=== PATIENT | female | born 1940 | race African-American/Black ===

== ENCOUNTER 2016-10-16 18:49 | Observation (INO) ==
--- NOTE | 2016-10-16 20:34 | Emergency Department Note ---
IJojo Kasabria, am scribing for, and in the presence of, Brad Alfaro MD 20:33. Angelina Jean Baptiste Charles R, MD, personally performed the services described in this documentation, ascribed by Noe Uribe in my presence, and it is both accurate and complete . Arrival - Arrival Chief Complaint: Extremity Problem Stated Complaint: didnt list complaint ED Nursing Triage Note: C/O Swelling/pain to right leg onset "sometime last week " Pt reports having a heart cath 2 weeks ago tomorrow that was done by Dr. Li. Denies calling Dr. Li about the swelling to the leg. +swelling noted. + pedal pulses palpated equal and strong. Mode of Arrival: Ambulatory Limitations: No Limitations Source: Patient, Family (daughter ) Time Seen by Provider: 10/16/16 20:11 - History of Present Illness HPI Narrative: Pt is a 76 y/o black female presenting to the ED with c/o right leg tenderness and edema that onset one week. Pt's had ah eart cath performed by Dr. iL. The edema and tenderness was not directly following the heart cath but one week after the cath. She states her leg is sore and feels tight. Pt has a PMHx of HTN which is controlled with medications. Her follow up appointment is November [address] Li. Pt denies fever, chills, nausea, vomiting, diarrhea, abdominal pain, back pain, dysuria, chest pain, and SOB. Pt was ambulatory to the ED. Onset (ago): week(s) (2) Consistency: constant Severity: moderate Date of Last Menstrual Period: Hysterectomy Allergies/Adverse Reactions: Allergies Allergy/AdvReac Type Severity Reaction Status Date / Time Penicillins Allergy Unknown/Unable Verified 07/29/16 18:39 to obtain Home Medications: Home Medications Medication Instructions Recorded Confirmed Type Amlodipine Besylate 10 mg PO DAILY 07/29/16 10/16/16 History Cholecalciferol (Vitamin D3) 1,000 unit PO DAILY 07/29/16 10/16/16 History [Vitamin D3] Hydrocodone/Acetaminophen 1 each PO BEDTIME PRN 07/29/16 10/16/16 History [Hydrocodon-Acetaminophen 5-325] Magnesium Chloride [Mag Delay] 64 mg PO DAILY 07/29/16 10/16/16 History Meloxicam [Mobic] 7.5 - 15 mg PO DAILY PRN 07/29/16 10/16/16 History Metoprolol Tartrate Tab [Lopressor 100 mg PO TID 07/29/16 10/16/16 History Tab] Multivitamin (Centrum) [Centrum 1 tablet PO DAILY 07/29/16 10/16/16 History Tab] Potassium Chloride 20 meq PO DAILY 07/29/16 10/16/16 History Tolterodine Tartrate [Tolterodine 4 mg PO DAILY 07/29/16 10/16/16 History LA] cloNIDine HCl [Clonidine HCl] 0.2 mg PO BID 07/29/16 10/16/16 History glyBURIDE/METFORMIN 5-500 2 tablet PO DAILY W/BREAKFAST 07/29/16 10/16/16 History [Glucovance 5-500] Aspirin Chew Tab 81 mg PO DAILY tablet 08/02/16 10/16/16 Rx Insulin Glargine [Lantus] 42 unit SUBCUT BEDTIME 08/02/16 10/16/16 History Rivaroxaban [Xarelto] 20 mg PO DAILY W/SUPPER #30 tablet 08/02/16 10/16/16 Rx Furosemide Tab [Lasix Tab] 20 mg PO DAILY 10/03/16 10/16/16 History Review of System - Review of System 12 point system: reviewed and no additional remarkable complaints except as stated - Review of System Constitutional: Absent: chills, fever, weakness Eyes: Absent: vision change Head/Ears/Nose/Throat: Absent: earache, nasal drainage Respiratory: Absent: cough, wheezing Cardiovascular: Absent: chest pain, dyspnea on exertion, syncope Gastrointestinal: Absent: abdominal pain, nausea, vomiting, diarrhea Genitourinary female: Absent: dysuria Musculoskeletal: Present: leg pain (right leg edema and tenderness post heart cath ). Absent: arm pain, back pain, neck pain Skin: Absent: rash Neurological: Absent: headache, weakness, numbness, confusion, abnormal gait, vertigo Psychiatric: Absent: anxiety Endocrine: Absent: fatigue Hematological/Lymphatic: Absent: easy bleeding Allergic/Immunologic: Absent: facial swelling Medical,Surgical,& Family Hx - Medical History Cardio: History of: Hypertension No history of: CAD, Pacemaker Psychological: No history of: Anxiety Disorders, Depression Neurology: No history of: Seizures Endocrine: History of: Diabetes Mellitus (IDDM) Rheumatology: History of;: Rheumatoid Arthritis - Surgical History Reproductive Surgeries: Surgical HX of;: Hysterectomy - Family History Family History: Reports;: Family Stroke - Social History Smoking Status: Never smoker Frequency of Alcohol Use: None Type of Drug Use: None Exam Vital Signs: Vital Signs Temperature 97.4 F L 10/16/16 19:11 Pulse Rate 86 10/16/16 19:11 Respiratory Rate 18 10/16/16 19:11 Blood Pressure 122/88 10/16/16 19:11 O2 Sat by Pulse Oximetry 98 10/16/16 19:11 - General General appearance: alert, in no apparent distress - Head Head exam: Present: atraumatic, normocephalic, normal inspection - Eye Eye exam: Present: normal appearance, PERRL, EOMI - ENT ENT exam: Present: normal exam, normal oropharynx, mucous membranes moist, TM's normal bilaterally, normal external ear exam - Neck Neck exam: Present: normal inspection, full ROM, trachea midline. Absent: tenderness - Chest Chest inspection: Present: normal inspection, symmetric chest wall rise. Absent : tenderness - Respiratory Respiratory exam: Present: normal lung sounds bilaterally - Cardiovascular Cardiovascular exam: Present: regular rate, normal rhythm, normal heart sounds - Abdominal Exam Abdominal exam: Present: soft, normal bowel sounds. Absent: distention, tenderness - Extremities Exam Extremities exam: Present: full ROM, tenderness (edema to the RLE with a small 3 /3cm at the groin; good distal pulses ), normal capillary refill. Absent: pedal edema, calf tenderness - Back Exam Back exam: Present: normal inspection, full ROM. Absent: tenderness - Neurological Exam Neurological exam: Present: alert, oriented X3, CN II-XII intact, normal gait, reflexes normal - Psychiatric Psychiatric exam: Present: normal affect, normal mood - Skin Skin exam: Present: warm, dry, intact, normal color. Absent: rash, diaphoresis Course - Consultations Consultation #1: Dr. Hillman will admit patient for observation to watch hematoma and right groin Time: 22:28 Results - Labs CBC & BMP: 10/16/16 21:30 Disposition Clinical Impression: possible hematoma right groin post cath Case discussed with: patient, patient's family Disposition: Still a Patient Condition: Stable Time of Disposition: 22:29
[2016-10-16 21:37] LABS: Basophils % 0.5 % (0.0-0.8); Eosinophils # 0.3 10*3/uL (0.0-0.87); Eosinophils % 3.6 % (0.00-10.9); Hematocrit 35.4 VOL% (35.7-47.0); Hemoglobin 11.2 GM/DL (12.0-16.0); Immature Granulocytes % 0.5 %; Immature Granulocytes Absolute 0.04 #; Lymphocytes # 2.3 10*3/uL (1.4-4.0); Lymphocytes % 27.4 % (21.3-54.2); Mean Corpuscular HGB Conc 31.6 GM/DL (32-36); Mean Corpuscular Hemoglobin 26 PG (27-34); Mean Corpuscular Volume 81.8 FL (87-102); Mean Platelet Volume 8.8 FL (9.6-12.0); Monocytes # 0.8 10*3/uL (0.11-0.8); Monocytes % 8.8 % (1.7-12.7); Neutrophils # 5.1 10*3/uL (1.4-7.4); Neutrophils % 59.2 % (38.7-73.9); Platelet Count 328 T/CUMM (130-400); Red Blood Count 4.33 MC/CUMM (3.8-5.5); Red Cell Distribution Width 14.3 % (9.3-17.3); White Blood Count 8.5 T/CUMM (4-12)
--- NOTE | 2016-10-16 21:42 | Ultrasound Report ---
Exam: Right lower extremity venous Doppler/duplex ultrasound Comparison: 07/31/2016 Clinical history: Recent heart catheterization with progressive pain and swelling in left lower extremity Technique: Duplex scan of the right lower extremity veins using th B- mode/grayscale imaging and Dopplers spectral analysis and color flow. Findings: There is normal compression and augmentation of the right superficial femoral and popliteal veins. The proximal right greater saphenous veins appear to be patent. Ill-defined 22 mm finding at the level of the right common femoral vein which extends around the adjacent saphenous vein. There is abnormal compression but there is still flow within the common femoral vein. No definite pseudoaneurysm identified. Normal compression and augmentation of the right superficial femoral and popliteal veins with normal course, caliber, and normal color-flow study and spectral analysis. Impression: Findings consistent with hematoma in the area of the right common femoral vein and saphenous vein in patient with recent heart catheterization. No definite pseudoaneurysm is identified. However there is abnormal compression of the vein which can be seen with nonoccluding deep venous thrombosis in addition to the hematoma. Short-term follow-up ultrasound recommended. Findings were discussed with Dr. Alfaro at 9:20 PM on 10/16/2016. Critical test results Ultrasound images were captured and stored. PROCEDURE INTERPRETED AT [facility] [place] DEPARTMENT OF RADIOLOGY Final Report Signed by: Dr. Siobhan Calvin
[2016-10-16 21:48] LABS: INR 1.4; PT Patient Result 14.6 SECS
[2016-10-16 22:51] LABS: Alanine Aminotransferase 22 U/L (13-56); Albumin 2.9 G/DL (3.4-5.0); Alkaline Phosphatase 93 U/L (45-117); Aspartate Amino Transferase 19 U/L (0-37); Bilirubin,Total < 0.39 MG/DL (0.2-1.0); Blood Urea Nitrogen 14 MG/DL (7-18); Calcium 8.9 MG/DL (8.5-10.1); Glucose 127 MG/DL (74-106); Osmolality,Calculated 294.4 MOS/KG (273-304); Potassium 3.9 MMOL/L (3.5-5.1); Sodium 147 MMOL/L (136-145); Total Protein 6.1 G/DL (6.4-8.3)
[2016-10-17] MEDS ORDERED: MAGNESIUM SULF RIDER 4 GM in PREMIX 1 EACH IV PRN (00:28)
[2016-10-17] MEDS ORDERED: ONDANSETRON 4 MG/2 ML VIAL IV PRN (00:28)
[2016-10-17] MEDS ORDERED: GLUCAGON 1 MG VIAL IM PRN (00:28)
[2016-10-17] MEDS ORDERED: MORPHINE 2 MG/1 ML SYRINGE IV PRN (00:28)
[2016-10-17] MEDS ORDERED: DEXTROSE 50% 25 GM/50 ML VIAL IV PRN (00:28)
[2016-10-17] MEDS ORDERED: MAGNESIUM SULF RIDER 2 GM in PREMIX 1 EACH IV PRN (00:28)
[2016-10-17] MEDS: SODIUM CHLORIDE 0.9% 1,000 ML IV SCH (01:22)
[2016-10-17 05:49] LABS: Albumin 2.7 G/DL (3.4-5.0); Bilirubin,Total 0.4 MG/DL (0.2-1.0); Calcium 8.6 MG/DL (8.5-10.1); Magnesium 2.1 MG/DL (1.8-2.4); Osmolality,Calculated 291.3 MOS/KG (273-304); Potassium 3.5 MMOL/L (3.5-5.1); Risk Ratio 2.62; Total Protein 5.8 G/DL (6.4-8.3); VLDL CHOLESTEROL 11.2 MG/DL
[2016-10-17 07:06] LABS: Basophils % 0.6 % (0.0-0.8); Eosinophils # 0.3 10*3/uL (0.0-0.87); Eosinophils % 4.4 % (0.00-10.9); Hematocrit 33.1 VOL% (35.7-47.0); Hemoglobin 10.4 GM/DL (12.0-16.0); Immature Granulocytes % 0.4 %; Immature Granulocytes Absolute 0.03 #; Lymphocytes # 2.3 10*3/uL (1.4-4.0); Lymphocytes % 32.8 % (21.3-54.2); Mean Corpuscular HGB Conc 31.4 GM/DL (32-36); Mean Corpuscular Hemoglobin 26 PG (27-34); Mean Corpuscular Volume 82.5 FL (87-102); Mean Platelet Volume 9.4 FL (9.6-12.0); Monocytes # 0.7 10*3/uL (0.11-0.8); Monocytes % 9.6 % (1.7-12.7); Neutrophils # 3.6 10*3/uL (1.4-7.4); Neutrophils % 52.2 % (38.7-73.9); Platelet Count 325 T/CUMM (130-400); Red Blood Count 4.01 MC/CUMM (3.8-5.5); Red Cell Distribution Width 14.5 % (9.3-17.3); White Blood Count 6.9 T/CUMM (4-12)
[2016-10-17] MEDS: INSULIN REGULAR 100 UNIT/ML SUBCUT SCH ×4 (08:18→20:59)
[2016-10-17] MEDS ORDERED: PANTOPRAZOLE 40 MG TABLET PO SCH (09:30)
[2016-10-17] MEDS: ASPIRIN CHEW 81 MG TABLET PO SCH (10:17)
[2016-10-17] MEDS: amLODIPine 10 MG TABLET PO SCH (10:17)
[2016-10-17] MEDS: CHOLECALCIFEROL 1,000 UNIT TABLET PO SCH (10:17)
[2016-10-17] MEDS: MAGNESIUM CHLORIDE 64 MG TABLET PO SCH (10:17)
[2016-10-17] MEDS: FUROSEMIDE 20 MG TABLET PO SCH (10:18)
[2016-10-17] MEDS: PANTOPRAZOLE 40 MG TABLET PO SCH (10:18)
--- NOTE | 2016-10-17 11:19 | CT Report ---
CT chest PE study Indication: Shortness of breath Comparison: Chest CT dated July 29, 2016 Technique: Multiple axial tomographic images of the chest were obtained after the administration of 80 cc Omnipaque 350 intravenous contrast. PE protocol followed. Coronal and sagittal maximum intensity projection images provided. Findings: No segmental or larger pulmonary embolism demonstrated. Enlargement of the pulmonary trunk consistent with elevated pulmonary arterial pressures. Continued cardiomegaly. There is reflux of contrast into the IVC consistent with right heart failure. Coronary artery at carotid calcification noted. Mild atherosclerotic calcification within the great vessels. No focal consolidation, pleural effusion, or pneumothorax. Mild dependent changes of the lungs present. Visualized upper abdomen demonstrates no acute abnormality. Osseous and surrounding tissue structures appear grossly unchanged. IMPRESSION: No segmental or larger pulmonary embolism demonstrated. Enlargement of the pulmonary trunk suggestive of pulmonary arterial hypertension. Continued cardiomegaly with suggestion of right heart failure. No forest pulmonary edema. PROCEDURE INTERPRETED AT [facility] DEPARTMENT OF RADIOLOGY Final Report Signed by: Dr Jorge Mabry
--- NOTE | 2016-10-17 13:00 | Cardiology History & Physical ---
Jovani Jean Baptiste Rachel, RN, am scribing for, and in the presence of, Marcelol Li MD 12:54. Assessment and Plan (1) Persistent atrial fibrillation Status: Acute Assessment and plan: This is clinically stable. Atrial fibrillation with controlled ventricular response. Home medications restarted at this time, Xarelto and Beta silvia. Will adjust medications as needed. Current Visit: Yes (2) Diabetes Status: Chronic Assessment and plan: Clinically stable. Metformin held today CT chest. Will restart in 48 hours. Sliding scale insulin ordered. Current Visit: No (3) Essential hypertension Status: Chronic Assessment and plan: Restarted patient's home medications. Will adjust as needed. Current Visit: No (4) Obesity Status: Chronic Assessment and plan: Counseled patient on the importance of loosing weight. Current Visit: No (5) Cardiomyopathy Status: Acute Assessment and plan: Really doesn't have a cardiomyopathy. Ejection fraction at least 50% of not better. Current Visit: Yes (6) [place] (dyspnea on exertion) Status: Acute Assessment and plan: CT chest ordered and PE were ruled out. This patient had chronic dyspnea. She has at least moderate to severe poorly hypertension. We will last Dr. Schulte to see the patient. Current Visit: Yes (7) Hematoma Status: Acute Assessment and plan: Right lower extremity doppler findings consistent with hematoma in the area of the right common femoral vein and saphenous vein. No definite psueudoaneurysm is identified. However, there is abnormal compression of the vein which can be seen with nonoccluding DVT in addition to the hematoma. Because the question of nonoccluding DVT may go ahead and switch her from Xarelto to Eliquis. Current Visit: Yes (8) Leg edema, right Status: Acute Assessment and plan: This is probably secondary to hematoma compression on the vein as well as maybe some DVT in the vein. She's done better with the furosemide Current Visit: Yes History of Present Illness Chief complaint: Right leg tenderness and swelling History of present illness: Ms. Albert is a 76 year old female patient, routinely followed by Dr. Li. She presented to [place] last night with complaints of right leg tenderness and swelling. She was admitted to cardiology's service for further evaluation. She has a past medical history of persistent atrial fib (diagnosed in 07/2016; takes xarelto for this), hypertension, diabetes and cardiomyopathy (EF of 55% noted on echo 07/2016 with mild to moderate LVH). Past surgical history includes hysterectomy. No significant family history of cardiac disease is reported. She was last admitted to this facility on 10/03/16 for chest pain and worsening dyspnea on exertion. She underwent cardiac cath at that time per Dr. Li. She was found have widely patent coronary arteries with moderately high right-sided pressures at that time. Post procedure she did well and was without complication. She was in her usual state of health until one week ago when she began noticing moderate right leg tenderness and swelling. She tells me that the swelling did not develop directly post cath. It became evident approximately one week after discharged home. After being discharged home she tells me she has been quite sedentary due to fatigue and dyspnea on exertion. Pain is worse in her upper thigh and aggravated with walking. She is unable to identify any alleviating factors. She denies associated chest pain or discomfort. She does however report dyspnea on extertion and fatigue, but states this has not worsened since she was discharged home. She tells me she has an appointment with Dr. Schulte on the of this month for full work up of her shortness of breath and pulmonary hypertension. She tells she's had sleep studies to 3 weeks ago and these were unremarkable. She denies fever, chills, abdominal pain, orthopnea, PND, palpitations, lightheadedness and chest pain. She was seen and examined on telemetry. She is currently in atrial fibrillation per tele monitor with a controlled ventricular response. She takes Xarelto for this. Cath site to right groin is tender to palpitation. No bruit auscultated. Edema noted, Bilateral DP and PT pulses 2+. Normal capillary refill noted. Venous doppler of right lower extremity revealed findings consistent with hematoma in the area of the right common femoral vein and saphenous vein. No definite psueudoaneurysm is identified. However, there is abnormal compression of the vein which can be seen with nonoccluding DVT in addition to the hematoma. Have reviewed this study and indeed I do question some intermittent venous thrombus. Swelling or right leg is much improved. Of note, she denies any prior history of gi bleeds, blood in her stool, anemia, frequent falls and stroke. No contraindications of anticoagulation noted. Active Medications Active Medications Hydrocodone Bitart/Acetaminophen (Penelope 5-325) 1 tablet PO BEDTIME PRN PRN Reason: Pain Amlodipine Besylate (Norvasc) 10 mg PO DAILY [facility] Aspirin () 81 mg PO DAILY [facility] Cholecalciferol (Vitamin D3) 1,000 unit PO DAILY [facility] Clonidine HCl (Catapres Tab) 0.2 mg PO BID [facility] Dextrose/Water (D50) 25 gm IV PRN PRN PRN Reason: Hypoglycemia with IV access Last Admin: 10/17/16 06:18 Dose: 25 gm Furosemide (Lasix Tab) 20 mg PO DAILY [facility] Glucagon () 1 mg IM PRN PRN PRN Reason: Hypoglycemia w/o IV access Magnesium Sulfate 2 gm/ Premix 50 mls @ 25 mls/hr IV .PER PROTOCOL PRN; Protocol PRN Reason: Per Protocol Magnesium Sulfate 4 gm/ Premix 100 mls @ 25 mls/hr IV .PER PROTOCOL PRN; Protocol PRN Reason: Per Protocol Sodium Chloride (Ns) 1,000 mls @ 20 mls/hr IV .Q24H [facility] Last Admin: 10/17/16 01:22 Dose: 20 mls/hr Insulin Glargine (Lantus) 42 unit SUBCUT BEDTIME [facility] Insulin Human Regular (Humulin R) 0 unit SUBCUT ACHS [facility] PRN Reason: Protocol Last Admin: 10/17/16 08:18 Dose: Not Given Iron/Multivitamins/Folic Acid (Centrum Tab) 1 tablet PO DAILY [facility] Magnesium Chloride (Slow Mag) 64 mg PO DAILY [facility] Metoprolol Tartrate (Lopressor Tab) 100 mg PO TID [facility] Morphine Sulfate () 2 mg IV Q4H PRN PRN Reason: Pain Severe (8-10) Ondansetron HCl (Zofran Inj) 4 mg IV Q4H PRN PRN Reason: Nausea Pantoprazole Sodium (Protonix Tab) 40 mg PO DAILY [facility] Rivaroxaban (Xarelto) 20 mg PO DAILY W/SUPPER [facility] Tolterodine Tartrate (Detrol La) 4 mg PO DAILY [facility] Home Medications Medication Instructions Recorded Confirmed Type Amlodipine Besylate 10 mg PO DAILY 07/29/16 10/16/16 History Cholecalciferol (Vitamin D3) 1,000 unit PO DAILY 07/29/16 10/16/16 History [Vitamin D3] Hydrocodone/Acetaminophen 1 each PO BEDTIME PRN 07/29/16 10/16/16 History [Hydrocodon-Acetaminophen 5-325] Magnesium Chloride [Mag Delay] 64 mg PO DAILY 07/29/16 10/16/16 History Meloxicam [Mobic] 1 - 2 tablet PO DAILY PRN 07/29/16 10/17/16 History Metoprolol Tartrate Tab [Lopressor 100 mg PO TID 07/29/16 10/16/16 History Tab] Multivitamin (Centrum) [Centrum 1 tablet PO DAILY 07/29/16 10/16/16 History Tab] Potassium Chloride 20 meq PO DAILY 07/29/16 10/16/16 History Tolterodine Tartrate [Tolterodine 4 mg PO DAILY 07/29/16 10/16/16 History LA] cloNIDine HCl [Clonidine HCl] 0.2 mg PO BID 07/29/16 10/16/16 History glyBURIDE/METFORMIN 5-500 2 tablet PO DAILY W/BREAKFAST 07/29/16 10/16/16 History [Glucovance 5-500] Aspirin Chew Tab 81 mg PO DAILY tablet 08/02/16 10/16/16 Rx Insulin Glargine [Lantus] 42 unit SUBCUT BEDTIME 08/02/16 10/16/16 History Rivaroxaban [Xarelto] 20 mg PO DAILY W/SUPPER #30 tablet 08/02/16 10/16/16 Rx Furosemide Tab [Lasix Tab] 20 mg PO DAILY 10/03/16 10/16/16 History Allergies Allergy/AdvReac Type Severity Reaction Status Date / Time Penicillins Allergy Unknown/Unable Verified 07/29/16 18:39 to obtain - Constitutional Constitutional: Present: fatigue. Absent: chills, excessive sweating, fever(s) , frequent falls, headache(s), malaise, night sweats, weakness - Cardiovascular Cardiovascular: Present: dyspnea on exertion, edema (right lower extremity). Absent: chest pain at rest, chest pain with activity, claudication, diaphoresis , radiating jaw, neck or arm pain, lightheadedness, orthopnea, palpitations, PND - Respiratory Respiratory: Present: dyspnea on exertion. Absent: cough, wheezing, snoring, pain on inspiration - Gastrointestinal Gastrointestinal: Absent: abdominal pain, change in bowel habits, coffee ground emesis, constipation, cramping, diarrhea, heartburn, hematemesis, hematochezia, melena, nausea, vomiting - Musculoskeletal Musculoskeletal: Absent: back pain, limited range of motion, myalgias - Neurological Neurological: Absent: dizziness, frequent falls, headache(s), memory loss, syncope - Hematologic/Lymphatic Hematologic/Lymphatic: Absent: easy bleeding, easy bruising, lymphadenopathy Medical,Surgical,& Family Hx - Medical History Cardio: History of: Cardiac Dysrhythmia (atrial fib, patient takes xarelto ), Hypertension, Cardiovascular Problems (EF 55%, 07/2016) No history of: CAD, Pacemaker Psychological: No history of: Anxiety Disorders, Depression Neurology: No history of: Cerebrovascular Accident, Seizures, TIA Endocrine: History of: Diabetes Mellitus (IDDM) Rheumatology: History of;: Rheumatoid Arthritis Respiratory: History of: Obstructive Sleep Apnea Gastrointestinal: No history of: Gastrointestinal Bleed, Hematochezia, GI Problems Musculoskeletal: No history of: Amputation Hematology: No history of: Anemia, Bleeding Problems, Blood Disorders - Surgical History Cardiac Surgeries: Sugical HX of: Cardiac Catheterization (2 WEEKS AGO) Thoracic Surgeries: Patient denies;: Organ Transplant, Lobectomy Neurologic Surgeries: Patient denies: Neurologic Surgery Abdominal Surgeries: Patient denies: Abdominal Surgery Reproductive Surgeries: Surgical HX of;: Gynecologic Surgery, Hysterectomy Patient denies;: Genitourinary Surgery - Family History Family History: Reports;: Family Stroke - Social History Smoking Status: Never smoker Frequency of Alcohol Use: None Type of Drug Use: None Cardiology Physical Exam - Constitutional Vitals: Vital Signs Temp Pulse Resp BP Pulse Ox 97.3 F L 76 18 150/87 100 10/17/16 04:00 10/17/16 04:00 10/17/16 04:00 10/17/16 04:00 10/17/16 04:00 Intake and Output 10/16/16 10/17/16 10/17/16 22:59 06:59 14:59 Output Total 700 / 700 Balance -700 / -700 Output: Urine 700 / 700 Other: Voiding Method Toilet Weight 270 lb General appearance: no acute distress, morbidly obese - Head Head exam: Present: normal inspection, normocephalic, atraumatic - Eye Pupils: Present: CHARLY. Absent: constricted, dilated, fixed, irregular, unequal - Neck Neck exam: Present: normal inspection. Absent: lymphadenopathy, meningismus, tenderness, thyromegaly - Respiratory Respiratory exam: Present: clear to auscultation bilaterally. Absent: accessory muscle use, chest wall tenderness, rales, rhonchi, stridor, wheezes - Cardiovascular Cardiovascular exam: Present: irregular rhythm (atrial fib ). Absent: carotid bruit, diastolic murmur, gallop, rubs, systolic murmur, tachycardia - GI/Abdominal GI/Abdominal exam: Present: normal bowel sounds, soft. Absent: distended, firm , mass, tenderness - Extremities Exam Extremities exam: Present: normal capillary refill, calf tenderness, edema ( Right extremity ), other (DP and PT pulses 2+ bilaterally. ) - Expanded Right Lower Upper Leg exam: Present: swelling (right leg), tenderness (at the right groin at cath site). Absent: ecchymosis, erythema Lower leg exam: Present: swelling (right lower leg), tenderness (tenderness is minimal). Absent: ecchymosis, erythema Foot/Toe exam: Present: normal inspection, full ROM - Back Exam Back exam: Present: normal inspection - Neurological Exam Neurological exam: Present: alert, oriented X3 - Psychiatric Psychiatric exam: Present: normal affect, normal mood. Absent: agitated, anxious, depressed - Skin Skin exam: Present: normal color, warm. Absent: cyanosis, diaphoretic, erythema , mottled, pallor, rash, urticaria Result/EKG - Labs CBC & BMP: 10/17/16 03:57 10/17/16 03:57 Lab Results: I have reviewed the past 24 hour labs Labs: Laboratory Results - last 24 hr 10/17/16 10/17/16 10/17/16 03:57 03:57 03:57 WBC 6.9 RBC 4.01 Hgb 10.4 L Hct 33.1 L MCV 82.5 L MCH 26 L MCHC 31.4 L RDW 14.5 Plt Count 325 MPV 9.4 L Neut % (Auto) 52.2 Lymph % (Auto) 32.8 [place] % (Auto) 9.6 Eos % (Auto) 4.4 Baso % (Auto) 0.6 Neut # (Auto) 3.6 Lymph # (Auto) 2.3 [place] # (Auto) 0.7 Eos # (Auto) 0.3 Baso # (Auto) 0.0 Immature Gran % 0.4 Nucleated RBC % 0.0 Immature Gran # 0.03 Nucleated RBCs # 0.00 Sodium 148 H Potassium 3.5 Chloride 110 H Carbon Dioxide 28 Anion Gap 13.5 BUN 12 Creatinine 0.70 GFR Calculation 133 BUN/Creatinine Ratio 17.00 Glucose 67 L POC Glucose Calculated Osmolality 291.3 Calcium 8.6 Magnesium 2.1 Total Bilirubin 0.40 AST 13 ALT 20 Alkaline Phosphatase 85 B-Natriuretic Peptide 359 H Total Protein 5.8 L Albumin 2.7 L Globulin 3.1 Albumin/Globulin Ratio 0.8 L Triglycerides 56 Cholesterol 123 LDL Cholesterol 73.0 VLDL Cholesterol 11.2 HDL Cholesterol 47 Heart Disease Risk Ratio 2.62 10/17/16 10/17/16 06:05 07:54 WBC RBC Hgb Hct MCV MCH MCHC RDW Plt Count MPV Neut % (Auto) Lymph % (Auto) [place] % (Auto) Eos % (Auto) Baso % (Auto) Neut # (Auto) Lymph # (Auto) [place] # (Auto) Eos # (Auto) Baso # (Auto) Immature Gran % Nucleated RBC % Immature Gran # Nucleated RBCs # Sodium Potassium Chloride Carbon Dioxide Anion Gap BUN Creatinine GFR Calculation BUN/Creatinine Ratio Glucose POC Glucose 61 L 100 Calculated Osmolality Calcium Magnesium Total Bilirubin AST ALT Alkaline Phosphatase B-Natriuretic Peptide Total Protein Albumin Globulin Albumin/Globulin Ratio Triglycerides Cholesterol LDL Cholesterol VLDL Cholesterol HDL Cholesterol Heart Disease Risk Ratio - EKG EKG results: interpreted by me EKG shows: atrial fibrillation Guillermo Jean Baptiste John Timothy, MD, personally performed the services described in this documentation, ascribed by Lyubov Hahn RN in my presence, and it is both accurate and complete .
[2016-10-17] MEDS: METOPROLOL TARTRATE 100 MG TABLET PO SCH ×2 (15:52→20:59)
[2016-10-17] MEDS ORDERED: RIVAROXABAN 20 MG TABLET PO SCH (17:00)
[2016-10-17] MEDS: INSULIN GLARGINE 100 UNIT/ML SUBCUT SCH (20:59)
[2016-10-17] MEDS: APIXABAN 5 MG TABLET PO SCH (20:59)
[2016-10-18] MEDS: SODIUM CHLORIDE 0.9% 1,000 ML IV SCH (01:38)
[2016-10-18 03:18] LABS: Basophils % 0.4 % (0.0-0.8); Eosinophils # 0.3 10*3/uL (0.0-0.87); Eosinophils % 3.6 % (0.00-10.9); Hematocrit 32.7 VOL% (35.7-47.0); Hemoglobin 10.1 GM/DL (12.0-16.0); Immature Granulocytes % 0.4 %; Immature Granulocytes Absolute 0.03 #; Lymphocytes # 1.9 10*3/uL (1.4-4.0); Lymphocytes % 27.3 % (21.3-54.2); Mean Corpuscular HGB Conc 30.9 GM/DL (32-36); Mean Corpuscular Hemoglobin 25 PG (27-34); Mean Corpuscular Volume 81.5 FL (87-102); Mean Platelet Volume 9.4 FL (9.6-12.0); Monocytes # 0.7 10*3/uL (0.11-0.8); Monocytes % 9.4 % (1.7-12.7); Neutrophils # 4.1 10*3/uL (1.4-7.4); Neutrophils % 58.9 % (38.7-73.9); Platelet Count 308 T/CUMM (130-400); Red Blood Count 4.01 MC/CUMM (3.8-5.5); Red Cell Distribution Width 14.5 % (9.3-17.3)
[2016-10-18 04:05] LABS: Calcium 8.6 MG/DL (8.5-10.1); Magnesium 2.1 MG/DL (1.8-2.4); Osmolality,Calculated 295.6 MOS/KG (273-304); Potassium 3.5 MMOL/L (3.5-5.1)
[2016-10-18] MEDS: INSULIN REGULAR 100 UNIT/ML SUBCUT SCH ×4 (08:38→22:20)
[2016-10-18] MEDS: TOLTERODINE LA 4 MG CAPSULE PO SCH (10:53)
[2016-10-18] MEDS: CHOLECALCIFEROL 1,000 UNIT TABLET PO SCH (10:53)
[2016-10-18] MEDS: FUROSEMIDE 20 MG TABLET PO SCH (10:53)
[2016-10-18] MEDS: MULTIVITAMIN (CENTRUM) TABLET PO SCH (10:53)
[2016-10-18] MEDS: METOPROLOL TARTRATE 100 MG TABLET PO SCH ×3 (10:53→22:11)
[2016-10-18] MEDS: amLODIPine 10 MG TABLET PO SCH (10:53)
[2016-10-18] MEDS: MAGNESIUM CHLORIDE 64 MG TABLET PO SCH (10:53)
[2016-10-18] MEDS: PANTOPRAZOLE 40 MG TABLET PO SCH (10:54)
[2016-10-18] MEDS: ASPIRIN CHEW 81 MG TABLET PO SCH (10:54)
[2016-10-18] MEDS: APIXABAN 5 MG TABLET PO SCH (10:59)
[2016-10-18] MEDS ORDERED: WARFARIN 5 MG TABLET PO ONE (16:15)
--- NOTE | 2016-10-18 16:32 | Cardiology Progress Note ---
Jovani Jean Baptiste Rachel, RN, am scribing for, and in the presence of, Marcello Li MD 16:10. Assessment and Plan (1) Persistent atrial fibrillation Status: Acute Assessment and plan: This is clinically stable. Atrial fibrillation with controlled ventricular response. Home medications have been restarted. Will adjust medications as needed. Current Visit: Yes (2) Diabetes Status: Chronic Assessment and plan: Clinically stable. Metformin remains on hold from CT chest yesterday. Will restart [address] Sliding scale insulin was added yesterday to help control blood glucose while Metformin is on hold. Current Visit: No (3) Essential hypertension Status: Chronic Assessment and plan: Continue current plan of care. We'll monitor her pressures. May need as something to her regimen such as nifedipine or amlodipine especially with her increased pulmonary pressures. Unfortunately this may increase edema. Current Visit: No (4) Obesity Status: Chronic Assessment and plan: Counseled patient on the importance of loosing weight. It is unlikely she's going to she's not that motivated. Current Visit: No (5) Cardiomyopathy Status: Acute Assessment and plan: This is clinically stable. Last echo was done July 2016 and revealed EF of 55% with mild to moderate LVH. Continue current plan of care. Current Visit: Yes (6) [place] (dyspnea on exertion) Status: Acute Assessment and plan: This is chronic in been followed by Dr. Schulte previously. Because of been 10 units dyspnea on this admission and no PE on CT we'll go ahead and ask Dr. Schulte to see the patient. Current Visit: Yes (7) Hematoma Status: Acute Assessment and plan: Right lower extremity doppler findings consistent with hematoma in the area of the right common femoral vein and saphenous vein. No definite psueudoaneurysm is identified. However, there is abnormal compression of the vein which can be seen with nonoccluding DVT in addition to the hematoma. Because the question of nonoccluding DVT patient was switched from Xarelto to Eliquis. Continue current plan of care. Current Visit: Yes (8) Leg edema, right Status: Acute Assessment and plan: This is probably secondary to hematoma compression on the vein as well as maybe some DVT in the vein. She's done better with the furosemide Current Visit: Yes (9) Deep vein thrombosis (DVT) of femoral vein of left lower extremity Status: Acute Assessment and plan: We'll switch her to worsen to treat this evening though is nonocclusive. She's had swelling in the leg. No evidence of PTE. Continue anticoagulant. We'll switch her warfarin since she states she came for the other medications i.e. Eliquis/Xarelto. Current Visit: Yes Cardiology - PN: Subj Interval history: Ms. Albert is a 76 year old female patient, routinely followed by Dr. Li. She presented to [place] [facility] with complaints of right leg tenderness and swelling. She was admitted to cardiology's service for further evaluation. Right lower extremity doppler findings were consistent with hematoma in the area of the right common femoral vein and saphenous vein. No definite psueudoaneurysm is identified. However, there is abnormal compression of the vein which can be seen with nonoccluding DVT in addition to the hematoma. PE study was ordered and PE was ruled out yesterday. She remains in atrial fibrillation today with a controlled ventricular response. Her heart rate today has ranged from 80's - 90's. She is clinically stable today and without any new complaints. She continues to complain of shortness of breath and yet this is no worse. This is chronic problem for her. She is scheduled for a full workup of this by Dr. Schulte on October 30. We will last Dr. Schulte to go ahead and see her while she is here. Her right lower extremity edema seems to be slightly better. She is currently on Eliquis for anticoagulation. She is tolerating this well. Labs reviewed and are unremarkable. She really complains about the cost of her medications and is unlikely without some's assistance that she is going to not take her Eiquis or Xarelto. Undergo ahead and start her on warfarin in light that she probably is not going to continue to pay for these drugs. As noted we will try to get her on some type of assistance program for Eliquis. I think she generally go home after we get her INR out now. Active Medications Hydrocodone Bitart/Acetaminophen ([place] 5-325) 1 tablet PO BEDTIME PRN PRN Reason: Pain Amlodipine Besylate (Norvasc) 10 mg PO DAILY [facility] Last Admin: 10/18/16 10:53 Dose: 10 mg Apixaban (Eliquis) 5 mg PO BID [facility] Last Admin: 10/18/16 10:59 Dose: 5 mg Aspirin () 81 mg PO DAILY [facility] Last Admin: 10/18/16 10:54 Dose: 81 mg Cholecalciferol (Vitamin D3) 1,000 unit PO DAILY [facility] Last Admin: 10/18/16 10:53 Dose: 1,000 unit Clonidine HCl (Catapres Tab) 0.2 mg PO BID [facility] Last Admin: 10/18/16 10:53 Dose: 0.2 mg Dextrose/Water (D50) 25 gm IV PRN PRN PRN Reason: Hypoglycemia with IV access Last Admin: 10/17/16 06:18 Dose: 25 gm Furosemide (Lasix Tab) 20 mg PO DAILY [facility] Last Admin: 10/18/16 10:53 Dose: 20 mg Glucagon () 1 mg IM PRN PRN PRN Reason: Hypoglycemia w/o IV access Magnesium Sulfate 2 gm/ Premix 50 mls @ 25 mls/hr IV .PER PROTOCOL PRN; Protocol PRN Reason: Per Protocol Magnesium Sulfate 4 gm/ Premix 100 mls @ 25 mls/hr IV .PER PROTOCOL PRN; Protocol PRN Reason: Per Protocol Sodium Chloride (Ns) 1,000 mls @ 20 mls/hr IV .Q24H [facility] Last Admin: 10/18/16 01:38 Dose: Not Given Insulin Glargine (Lantus) 42 unit SUBCUT BEDTIME [facility] Last Admin: 10/17/16 20:59 Dose: 42 unit Insulin Human Regular (Humulin R) 0 unit SUBCUT ACHS [facility] PRN Reason: Protocol Last Admin: 10/18/16 12:55 Dose: 6 unit Iron/Multivitamins/Folic Acid (Centrum Tab) 1 tablet PO DAILY [facility] Last Admin: 10/18/16 10:53 Dose: 1 tablet Magnesium Chloride (Slow Mag) 64 mg PO DAILY [facility] Last Admin: 10/18/16 10:53 Dose: 64 mg Metoprolol Tartrate (Lopressor Tab) 100 mg PO TID [facility] Last Admin: 10/18/16 10:53 Dose: 100 mg Morphine Sulfate () 2 mg IV Q4H PRN PRN Reason: Pain Severe (8-10) Ondansetron HCl (Zofran Inj) 4 mg IV Q4H PRN PRN Reason: Nausea Pantoprazole Sodium (Protonix Tab) 40 mg PO DAILY [facility] Last Admin: 10/18/16 10:54 Dose: 40 mg Tolterodine Tartrate (Detrol La) 4 mg PO DAILY [facility] Last Admin: 10/18/16 10:53 Dose: 4 mg Exam (Progress Note) - Constitutional Vitals: Period Temp Pulse Resp BP Sys/Rodriguez Pulse Ox Last 24 Hr 96.2 F-98.5 F 62-90 16-20 118-155/71-87 100-100 General appearance: no acute distress, morbidly obese - Head Head exam: Present: normal inspection, normocephalic, atraumatic - Eye Pupils: Present: CHARLY. Absent: fixed, irregular, unequal - Respiratory Respiratory exam: Present: clear to auscultation bilaterally. Absent: accessory muscle use, chest wall tenderness, rales, rhonchi, stridor, wheezes - Cardiovascular Cardiovascular exam: Present: irregular rhythm (Atrial fibrillation). Absent: carotid bruit, gallop, rubs, systolic murmur, tachycardia - GI/Abdominal GI/Abdominal exam: Present: normal bowel sounds, soft. Absent: distended, firm , mass, tenderness - Extremities Exam Extremities exam: Present: normal inspection, normal capillary refill, calf tenderness, edema, other (Bilateral lower extremity pulses 2+.) - Neurological Exam Neurological exam: Present: alert, oriented X3 - Psychiatric Psychiatric exam: Present: normal affect, normal mood. Absent: agitated, anxious, depressed - Skin Skin exam: Present: normal color, warm, dry Result/EKG - Labs CBC & BMP: 10/18/16 01:45 10/18/16 01:45 Lab Results: I have reviewed the past 24 hour labs Labs: Laboratory Results - last 24 hr 10/17/16 10/17/16 10/18/16 17:07 20:14 01:45 WBC 7.0 RBC 4.01 Hgb 10.1 L Hct 32.7 L MCV 81.5 L MCH 25 L MCHC 30.9 L RDW 14.5 Plt Count 308 MPV 9.4 L Neut % (Auto) 58.9 Lymph % (Auto) 27.3 Tucker % (Auto) 9.4 Eos % (Auto) 3.6 Baso % (Auto) 0.4 Neut # (Auto) 4.1 Lymph # (Auto) 1.9 Tucker # (Auto) 0.7 Eos # (Auto) 0.3 Baso # (Auto) 0.0 Immature Gran % 0.4 Nucleated RBC % 0.0 Immature Gran # 0.03 Nucleated RBCs # 0.00 Sodium Potassium Chloride Carbon Dioxide Anion Gap BUN Creatinine GFR Calculation BUN/Creatinine Ratio Glucose POC Glucose 235 H 260 H Calculated Osmolality Calcium Magnesium 10/18/16 10/18/16 10/18/16 01:45 07:10 11:40 WBC RBC Hgb Hct MCV MCH MCHC RDW Plt Count MPV Neut % (Auto) Lymph % (Auto) Tucker % (Auto) Eos % (Auto) Baso % (Auto) Neut # (Auto) Lymph # (Auto) Tucker # (Auto) Eos # (Auto) Baso # (Auto) Immature Gran % Nucleated RBC % Immature Gran # Nucleated RBCs # Sodium 146 H Potassium 3.5 Chloride 108 H Carbon Dioxide 29 Anion Gap 12.5 BUN 12 Creatinine 0.80 GFR Calculation 113 BUN/Creatinine Ratio 15.00 Glucose 211 H POC Glucose 107 H 207 H Calculated Osmolality 295.6 Calcium 8.6 Magnesium 2.1 - Impressions Impressions: Clinically defibrillation controlled ventricular response. - EKG EKG results: interpreted by me EKG shows: atrial fibrillation IGuillermo John Timothy, MD, personally performed the services described in this documentation, ascribed by Lyubov Hahn RN in my presence, and it is both accurate and complete .
[2016-10-18] MEDS: ENOXAPARIN 120 MG/0.8 ML SYRINGE SUBCUT SCH (22:11)
[2016-10-18] MEDS: INSULIN GLARGINE 100 UNIT/ML SUBCUT SCH (22:12)
[2016-10-19 03:20] LABS: PT Patient Result 10.8 SECS
[2016-10-19] MEDS: INSULIN REGULAR 100 UNIT/ML SUBCUT SCH ×2 (08:37→12:50)
[2016-10-19] MEDS: METOPROLOL TARTRATE 100 MG TABLET PO SCH (09:01)
[2016-10-19] MEDS: MULTIVITAMIN (CENTRUM) TABLET PO SCH (09:01)
[2016-10-19] MEDS: MAGNESIUM CHLORIDE 64 MG TABLET PO SCH (09:01)
[2016-10-19] MEDS: CHOLECALCIFEROL 1,000 UNIT TABLET PO SCH (09:01)
[2016-10-19] MEDS: TOLTERODINE LA 4 MG CAPSULE PO SCH (09:01)
[2016-10-19] MEDS: ENOXAPARIN 120 MG/0.8 ML SYRINGE SUBCUT SCH (09:01)
[2016-10-19] MEDS: ASPIRIN CHEW 81 MG TABLET PO SCH (09:02)
[2016-10-19] MEDS: amLODIPine 10 MG TABLET PO SCH (09:02)
[2016-10-19] MEDS: PANTOPRAZOLE 40 MG TABLET PO SCH (09:02)
[2016-10-19] MEDS: FUROSEMIDE 20 MG TABLET PO SCH (09:02)
--- NOTE | 2016-10-19 10:04 | Pulmonology Consult Note ---
Assessment and Plan (1) Pulmonary hypertension Status: Acute Current Visit: No (2) [place] (dyspnea on exertion) Status: Acute Assessment and plan: Patient with fairly recent onset of [place]. I suspect that this is secondary to her weight and possibly worsening pulmonary hypertension. Her lung parenchyma looks completely normal on CT scan, and given that she has never smoked it is very unlikely that she has underlying obstructive disease. It does not appear that she had a right heart cath last month, but her ECHO and CT chest are suggestive of PH. If this is the case, I would suspect it's secondary to heart failure or EDWINA. She reports having a sleep study done a few weeks ago. I do not have those results. Either way, I recommended that she keep her follow up appointment with Dr Schulte on the . She needs outpatient PFTs and he can review her PSG at that time as well. Unfortunately there are not good medical treatment for non WHO Group 1 PH. Continue with diuresis and oxygen as needed Current Visit: Yes History of Present Illness Chief complaint: dyspnea on exertion History of present illness: Ms. Albert is a 76 year old female Patient admitted to the cardiology service for hematoma and possible nonocclusive DVT following a cardiac catheterization done a few weeks ago. She came in with leg pain and swelling. She also has had complaints of exertional dyspnea that she says has been going on for weeks to months. She has no dyspnea at rest. She gets out of breath with any physical activity including walking and ADLs. She denies cough. SHe is a never smoker. She has not had any other pulmonary issues Home Medications Medication Instructions Recorded Confirmed Type Amlodipine Besylate 10 mg PO DAILY 07/29/16 10/16/16 History Cholecalciferol (Vitamin D3) 1,000 unit PO DAILY 07/29/16 10/16/16 History [Vitamin D3] Hydrocodone/Acetaminophen 1 each PO BEDTIME PRN 07/29/16 10/16/16 History [Hydrocodon-Acetaminophen 5-325] Magnesium Chloride [Mag Delay] 64 mg PO DAILY 07/29/16 10/16/16 History Meloxicam [Mobic] 1 - 2 tablet PO DAILY PRN 07/29/16 10/17/16 History Metoprolol Tartrate Tab [Lopressor 100 mg PO TID 07/29/16 10/16/16 History Tab] Multivitamin (Centrum) [Centrum 1 tablet PO DAILY 07/29/16 10/16/16 History Tab] Potassium Chloride 20 meq PO DAILY 07/29/16 10/16/16 History Tolterodine Tartrate [Tolterodine 4 mg PO DAILY 07/29/16 10/16/16 History LA] cloNIDine HCl [Clonidine HCl] 0.2 mg PO BID 07/29/16 10/16/16 History glyBURIDE/METFORMIN 5-500 2 tablet PO DAILY W/BREAKFAST 07/29/16 10/16/16 History [Glucovance 5-500] Aspirin Chew Tab 81 mg PO DAILY tablet 08/02/16 10/16/16 Rx Insulin Glargine [Lantus] 42 unit SUBCUT BEDTIME 08/02/16 10/16/16 History Rivaroxaban [Xarelto] 20 mg PO DAILY W/SUPPER #30 tablet 08/02/16 10/16/16 Rx Furosemide Tab [Lasix Tab] 20 mg PO DAILY 10/03/16 10/16/16 History Allergies Allergy/AdvReac Type Severity Reaction Status Date / Time Penicillins Allergy Unknown/Unable Verified 07/29/16 18:39 to obtain 12 point system: reviewed and no additional remarkable complaints except as stated - Constitutional Constitutional: Present: as per HPI Exam (Pulmonay) H&P - Constitutional Vitals: Period Temp Pulse Resp BP Sys/Rodriguez Pulse Ox Last 24 Hr 97.3 F-97.9 F 75-94 18-20 124-166/72-82 97-100 General appearance: morbidly obese - Head Head exam: Present: normal inspection - Eye Eye exam: Present: EOMI Pupils: Present: CHARLY - ENT ENT exam: Present: normal exam - Respiratory Respiratory exam: Present: clear to auscultation bilaterally - Cardiovascular Cardiovascular exam: Present: regular rate and rhythm - GI/Abdominal GI/Abdominal exam: Present: soft - Neurological Exam Neurological exam: Present: alert, oriented X3 - Psychiatric Psychiatric exam: Present: normal affect, normal mood - Skin Skin exam: Present: normal color, warm Medical,Surgical,& Family Hx - Medical History Cardio: History of: Cardiac Dysrhythmia (atrial fib, patient takes xarelto ), Hypertension, Cardiovascular Problems (EF 55%, 07/2016) No history of: CAD, Pacemaker Psychological: No history of: Anxiety Disorders, Depression Neurology: No history of: Cerebrovascular Accident, Seizures, TIA Endocrine: History of: Diabetes Mellitus (IDDM) Rheumatology: History of;: Rheumatoid Arthritis Respiratory: History of: Obstructive Sleep Apnea Gastrointestinal: No history of: Gastrointestinal Bleed, Hematochezia, GI Problems Musculoskeletal: No history of: Amputation Hematology: No history of: Anemia, Bleeding Problems, Blood Disorders - Surgical History Cardiac Surgeries: Sugical HX of: Cardiac Catheterization (2 WEEKS AGO) Thoracic Surgeries: Patient denies;: Organ Transplant, Lobectomy Neurologic Surgeries: Patient denies: Neurologic Surgery Abdominal Surgeries: Patient denies: Abdominal Surgery Reproductive Surgeries: Surgical HX of;: Gynecologic Surgery, Hysterectomy Patient denies;: Genitourinary Surgery - Family History Family History: Reports;: Family Stroke - Social History Smoking Status: Never smoker Frequency of Alcohol Use: None Type of Drug Use: None Results - Labs CBC & BMP: 10/18/16 01:45 10/18/16 01:45 Lab Results: I have reviewed the past 24 hour labs - Diagnostic Findings Procedure: CT - chest: image reviewed by me (reviewed images and report. No PE. No evidence of effusions, infiltrates, emphysematous changes or interstitial changes)
[2016-10-19 12:06] VITALS: BP 108/63
--- NOTE | 2016-10-19 13:19 | Event Note ---
The patient was to be discharged today. She is stable. Her swelling right leg is better. Had a long discussion with the daughter and patient about that she' ll has partial thrombus in her right common femoral vein. I also discussed with them the findings a mold designer. For clarification the patient did have a right heart catheterization a couple weeks ago when she had her procedure. She had at least moderately elevated right-sided pressures with a LVEDP of 7 and wedge pressure was 28 mean. This would indicate that at that time the LV systolic dysfunction with ejection fraction of 50-55% was probably not the cause of her poorly hypertension. It is unlikely she has significant diastolic dysfunction based on these findings. I once again explained to the patient and the daughter present of using the Ellik was for moderate and then going back to his relatives that she developed some thrombus on this around to. She or his part of his relative to think that is fine for atrial fibrillation. They did not want take warfarin. They will keep their follow-up with Dr. Schulte and is as already previous prescribed. They will call with any questions. We are going to increase her furosemide. See discharge summary.
--- NOTE | 2016-10-19 13:22 | Discharge Summary ---
Hospital Course - Hospital Course Hospital Course: The patient is admitted and found to have nonocclusive thrombus in the right common for a vein and hematoma in the area. Her right leg was edematous. She will improve with Lasix. We switched her admission from Xarelto to Eliquis since she developed a thrombus on the Xarelto. I think that we can go back to his relative after she has been on the Ellik with for at least a month. She or his brought up some Xarelto and this was mainly for her atrial fibrillation. I discussed with her propping her legs up any increasing her Lasix and we have done. She may drive after she has been stable and not having any pain. She can walk he should do so and be active. She use her RUSTAM toes that are knee- high for the next several days until the swelling is improved. They will keep her follow-up appointments his artery made with me. They will keep their follow -up with Dr. Schulte. We had a long discussion about her thrombus with the daughter and her. They discussed her medical therapy and plans. - Time spent with patient Time with patient DS: Greater than 30 minutes Diagnosis - Discharge Diagnosis (1) Persistent atrial fibrillation Status: Chronic (2) Diabetes Status: Chronic (3) Essential hypertension Status: Chronic (4) Obesity Status: Chronic (5) Cardiomyopathy Status: Chronic (6) [place] (dyspnea on exertion) Status: Chronic (7) Hematoma Status: Acute (8) Leg edema, right Status: Acute (9) Deep vein thrombosis (DVT) of femoral vein of left lower extremity Status: Acute Discharge Plan - Discharge Data Disposition: Disch To Home/Self Care Condition at Discharge: Stable Discharge Diet: advance to your usual diet Activity: resume usual activities as tolerated Hygiene: no restrictions Weight Bearing at Discharge: full weight bearing Driving: no restrictions Contact your physician if you experience:: Redness or swelling - Discharge Medications New Furosemide Tab [Lasix Tab] 40 mg PO DAILY #30 tablet Apixaban [Eliquis] 5 mg PO BID #60 tablet Continue Multivitamin (Centrum) [Centrum Tab] 1 tablet PO DAILY Amlodipine Besylate 10 mg PO DAILY Tolterodine Tartrate [Tolterodine LA] 4 mg PO DAILY Meloxicam [Mobic] 1 - 2 tablet PO DAILY PRN PRN Reason: Pain glyBURIDE/METFORMIN 5-500 [Glucovance 5-500] 2 tablet PO DAILY W/BREAKFAST Metoprolol Tartrate Tab [Lopressor Tab] 100 mg PO TID cloNIDine HCl [Clonidine HCl] 0.2 mg PO BID Cholecalciferol (Vitamin D3) [Vitamin D3] 1,000 unit PO DAILY Potassium Chloride 20 meq PO DAILY Hydrocodone/Acetaminophen [Hydrocodon-Acetaminophen 5-325] 1 each PO BEDTIME PRN PRN Reason: Pain Magnesium Chloride [Mag Delay] 64 mg PO DAILY Insulin Glargine [Lantus] 42 unit SUBCUT BEDTIME Aspirin Chew Tab 81 mg PO DAILY tablet Discontinued Rivaroxaban [Xarelto] 20 mg PO DAILY W/SUPPER #30 tablet Furosemide Tab [Lasix Tab] 20 mg PO DAILY - Follow Up or Referral Follow Up: Blaine Schulte MD [Physician] - (Keep her follow with Dr. Blaine Schulte for October 30.) Marcello Li MD [Physician] - (Keep follow-up with me for November 04) - Forms/Instructions Exam - Constitutional Vitals: Period Temp Pulse Resp BP Sys/Rodriguez Pulse Ox Last 24 Hr 97.3 F-97.9 F 70-94 18-20 108-166/63-78 97-99 Exam: General appearance: Obese, no acute distress HEENT exam: normal inspection, atraumatic Neck exam: normal inspection no JVD. No carotid bruit. Trachea is in midline Respiratory/lungs exam: clear to auscultation bilaterally good air movement. Cardiovascular exam: Irregular rhythm with normal rate and no murmur or gallop or rub. No precordial lift. Chest wall exam: nontender GI/Abdominal exam: normal bowel sounds, soft, nontender, no abdominal bruits or pulsatile masses. Extremeties/musculoskeletal: Some edema in the right leg that is improved though. Neurological exam: alert, oriented X3, no focal deficits Psychiatric exam: normal affect, normal mood. Cognitive function is grossly normal. Skin exam: normal color, warm Discharge Results Procedures and tests throughout hospitalization: Pending Orders 10/20/16 04:00 Prothrombin Time INR IN AM 10/21/16 04:00 Prothrombin Time INR IN AM 10/22/16 04:00 Prothrombin Time INR IN AM Labs on day of discharge: Labs from last 24 hours 10/19/16 10/19/16 10/18/16 07:38 02:16 19:55 INR 1.0 PT Patient/Control Mix 10.8 D POC Glucose 131 H 206 H 10/18/16 16:59 INR PT Patient/Control Mix POC Glucose 196 H - Impressions Venous Dopplers lower extremity with nonocclusive thrombus of the right common femoral vein. Hematoma in the groin from her catheterization. DS: Provider Date of admission: 10/16/16 22:29 Primary care physician: . No PCP Attending physician on admission: Steve Hillman MD Consults: 10/18/16 16:09 Consult to Physician [CONS] Routine Comment: pulmonary hypertension, SOB. Pt known to you Consulting Provider: Blaine Schulte Consulting Provider Notified: No When should Consulting Provider be notified: Now Discharging clinician: Nusrat Burns Expected date of discharge: 10/19/16
[2016-10-19] MEDS ORDERED: WARFARIN 5 MG TABLET PO SCH (18:00)
== END 2016-10-19 14:03 | disposition home or self-care (01) ==
LOC: N.ED 18:49 → N.EDINP 18:49 → N.TELEN 23:30
PROVIDERS: ADMIT Internal Medicine Cardiovascular Disease; ATTEND Internal Medicine Cardiovascular Disease

== ENCOUNTER 2017-01-03 04:26 | Inpatient (IN) ==
[2017-01-03] MEDS ORDERED: LABETALOL 20 MG/4 ML SYRINGE IV STA ×3 (04:53→13:51)
[2017-01-03 05:04] LABS: Basophils % 0.2 % (0.0-0.8); Eosinophils % 0.3 % (0.00-10.9); Hematocrit 39.5 VOL% (35.7-47.0); Hemoglobin 13.3 GM/DL (12.0-16.0); Immature Granulocytes % 0.5 %; Immature Granulocytes Absolute 0.05 #; Lymphocytes # 0.8 10*3/uL (1.4-4.0); Lymphocytes % 7.3 % (21.3-54.2); Mean Corpuscular HGB Conc 33.7 GM/DL (32-36); Mean Corpuscular Hemoglobin 26 PG (27-34); Mean Corpuscular Volume 77.1 FL (87-102); Mean Platelet Volume 10.9 FL (9.6-12.0); Neutrophils # 9.1 10*3/uL (1.4-7.4); Neutrophils % 82.7 % (38.7-73.9); Platelet Count 295 T/CUMM (130-400); Red Blood Count 5.12 MC/CUMM (3.8-5.5); Red Cell Distribution Width 15.9 % (9.3-17.3)
--- NOTE | 2017-01-03 05:05 | Emergency Department Note ---
Arrival <Kaylee Reyna - Last Filed: 01/03/17 08:32> - Arrival ED Nursing Triage Note: Patient to room via ems. EMS states that they were called for a patient that was unresponsive. EMS says when they arrived patient was a&o x4 with GCS of 15. Patient is lethgric. Patient is showing afib on EMS monitor. Mode of Arrival: Stretcher Limitations: No Limitations Source: Patient, Family <Jhony Quiroz - Last Filed: 01/06/17 16:43> - Arrival Chief Complaint: Altered Mental Status Stated Complaint: altered mental status, afib Time Seen by Provider: 01/03/17 04:41 - History of Present Illness HPI Narrative: The family states that the patient had a change in mental status tonight. This occurred sometime around 2 or possibly before. It was noticed when she tried to get up out of the bed and almost fell. Her pushed her back into the bed to keep her from falling. When the daughter arrived she says the patient was not responding very much although she was awake. She continued to arouse her and put cold water on her face and she became more responsive. They think perhaps her glucose was low. They state she is still not back to baseline and that her speech is still slightly. The patient's only complaint is some shortness of breath which is slightly worse than her baseline. She denies any pain. (Jhony Quiroz) Allergies/Adverse Reactions: Allergies Allergy/AdvReac Type Severity Reaction Status Date / Time Penicillins Allergy Unknown/Unable Verified 01/03/17 04:35 to obtain Home Medications: Home Medications Medication Instructions Recorded Confirmed Type Cholecalciferol (Vitamin D3) 1,000 unit PO DAILY 07/29/16 01/03/17 History [Vitamin D3] Hydrocodone/Acetaminophen 1 each PO BEDTIME PRN 07/29/16 01/03/17 History [Hydrocodon-Acetaminophen 5-325] Magnesium Chloride [Mag Delay] 64 mg PO DAILY 07/29/16 01/03/17 History Meloxicam [Mobic] 1 - 2 tablet PO DAILY PRN 07/29/16 01/03/17 History Metoprolol Tartrate Tab [Lopressor 100 mg PO TID 07/29/16 01/03/17 History Tab] Multivitamin (Centrum) [Centrum 1 tablet PO DAILY 07/29/16 01/03/17 History Tab] Potassium Chloride 20 meq PO DAILY 07/29/16 01/03/17 History Tolterodine Tartrate [Tolterodine 4 mg PO DAILY 07/29/16 01/03/17 History LA] cloNIDine HCl [Clonidine HCl] 0.2 mg PO BID 07/29/16 01/03/17 History glyBURIDE/METFORMIN 5-500 2 tablet PO DAILY W/BREAKFAST 07/29/16 01/03/17 History [Glucovance 5-500] Aspirin Chew Tab 81 mg PO DAILY tablet 08/02/16 01/03/17 Rx Insulin Glargine [Lantus] 42 unit SUBCUT BEDTIME 08/02/16 01/03/17 History Furosemide Tab [Lasix Tab] 40 mg PO DAILY #30 tablet 10/19/16 01/03/17 Rx Rivaroxaban [Xarelto] 1 tablet PO PC SUPPER 01/03/17 01/03/17 History Review of System - Review of System 12 point system: reviewed and no additional remarkable complaints except as stated - Review of System Constitutional: Absent: fever Head/Ears/Nose/Throat: Absent: nasal drainage, sore throat Respiratory: Absent: cough, respiratory distress, wheezing Cardiovascular: Absent: chest pain, palpitations Gastrointestinal: Absent: abdominal pain, nausea, vomiting Neurological: Present: other (Slow speech). Absent: headache, weakness, numbness, paresthesias, confusion <Jhony Quiroz - Last Filed: 01/06/17 16:43> Medical,Surgical,& Family Hx - Medical History Cardio: History of: Cardiac Dysrhythmia (afib), CHF, Hypertension, Cardiovascular Problems (EF 55%, 07/2016) Endocrine: History of: Diabetes Mellitus (IDDM) Rheumatology: History of;: Rheumatoid Arthritis Respiratory: History of: Obstructive Sleep Apnea Gastrointestinal: No history of: Gastrointestinal Bleed, Hematochezia, GI Problems Musculoskeletal: No history of: Amputation Hematology: No history of: Anemia, Bleeding Problems, Blood Disorders - Surgical History Cardiac Surgeries: Sugical HX of: Cardiac Catheterization (2 WEEKS AGO) Thoracic Surgeries: Patient denies;: Organ Transplant, Lobectomy Neurologic Surgeries: Patient denies: Neurologic Surgery Abdominal Surgeries: Patient denies: Abdominal Surgery Reproductive Surgeries: Surgical HX of;: Gynecologic Surgery, Hysterectomy Patient denies;: Genitourinary Surgery - Family History Family History: Reports;: Family Stroke - Social History Smoking Status: Never smoker Frequency of Alcohol Use: None Type of Drug Use: None <Jhony Quiroz - Last Filed: 01/06/17 16:43> Exam <Kaylee Reyna - Last Filed: 01/03/17 08:32> <Jhony Quiroz - Last Filed: 01/06/17 16:43> Physical Examination: GENERAL: Alert. No acute distress. HEENT: Normocephalic and atraumatic. PERRLA. EOMI. There is no nasal drainage. No pharyngeal erythema or exudate. NECK: Normal inspection. Supple. No lymphadenopathy or meningismus. Full range of motion. LUNGS: No respiratory distress. Clear to auscultation bilaterally, no wheezes, rales or rhonchi. HEART: Regular rate and rhythm. ABDOMEN: Obese, soft, nontender and nondistended with normoactive bowel sounds. BACK: Normal inspection. SKIN: Color normal. Warm and dry. EXTREMITIES: Nontender. Normal range of motion. No pedal edema. NEUROLOGICAL/PSYCHIATRIC: Alert and oriented -3 with normal mood and affect. Speech is perhaps a little slow but not slurred. Cranial nerves normal. No motor or sensory deficit. (Jhony Quiroz) Vital Signs: Vital Signs Temperature 98.2 F 01/06/17 16:00 Pulse Rate 90 01/06/17 16:00 Respiratory Rate 20 01/06/17 16:00 Blood Pressure 143/87 01/06/17 16:00 O2 Sat by Pulse Oximetry 96 01/06/17 16:00 Course <Kaylee Reyna - Last Filed: 01/03/17 08:32> - Reevaluation(s) Time: 06:12 <Jhony Quiroz - Last Filed: 01/06/17 16:43> Course Narrative: pt admitted to hospitalist service with possible TIA (Kaylee Reyna) - Reevaluation(s) Reevaluation #1: I have discussed patient with Dr. Reyna and transferring care to her now at shift change. The CT of the head is still pending. (Jhony Quiroz) Results - Labs CBC & BMP: 01/03/17 04:49 01/03/17 05:27 <Kaylee Reyna - Last Filed: 01/03/17 08:32> - Labs CBC & BMP: 05/01/17 04:35 01/06/17 04:35 Lab Results: I have reviewed the patients labs <Jhony Quiroz - Last Filed: 01/06/17 16:43> - Labs Labs: Laboratory Tests 01/03/17 04:49 INR 1.3 (Jhony Quiroz) - Impressions Chest x-ray shows cardiomegaly without acute failure. EKG show afib with rvr at 108 (Jhony Quiroz) Disposition Case discussed with: patient, patient's family Time of Disposition: 07:30 <Kaylee Reyna - Last Filed: 01/03/17 08:32> Case discussed with: patient, patient's family <Jhony Quiroz - Last Filed: 01/06/17 16:43> Clinical Impression: Altered mental status, Hypertension, Persistent atrial fibrillation Disposition: Still a Patient Condition: Critical
[2017-01-03] MEDS ORDERED: LABETALOL 20 MG/4 ML SYRINGE IV ONE ×2 (05:07→13:42)
[2017-01-03 05:16] LABS: INR 1.3; PT Patient Result 13.8 SECS; Partial Thromboplastin Time 28.9 SECS (0-40)
[2017-01-03 05:59] LABS: Albumin 2.9 G/DL (3.4-5.0); Bilirubin,Total 0.9 MG/DL (0.2-1.0); Calcium 8.8 MG/DL (8.5-10.1); Osmolality,Calculated 287.3 MOS/KG (273-304); Potassium 2.6 MMOL/L (3.5-5.1); Total Protein 6.6 G/DL (6.4-8.3)
[2017-01-03 06:22] LABS: Apearance,Urine CLEAR (Clear); Bacteria,Urine Occasional /HPF (Few); Bilirubin,Urine Negative (Negative); Blood, Urine Small mg/dL (Negative); Glucose,Urine (UA) 50 mg/dL (Negative); Ketones,Urine Negative (Negative); Nitrite,Urine Negative (Negative); Protein,Urine Negative; RBC,Urine 6 /HPF (0-4); Squamous Epithelial Cell,Urine Occasional /HPF (0-10); Urine Color Straw (Yellow); Urine Specific Gravity 1.005 (1.001-1.035); Urine Urobilinogen < 2.0 EU/DL (0.2-1.0); WBC,Urine 12 /HPF (0-6)
--- NOTE | 2017-01-03 06:30 | CT Report ---
CT head/brain wo con Indication: Mental status change. Comparison: None. Technique: CT of the brain was performed without administration of intravenous contrast. The CT examination was performed using one or more of the following dose reduction techniques: Automatic exposure control, adjustment of the mA and kV according to patient size, use of acute or iterative reconstruction techniques. Findings: There is no evidence of acute intracranial mass, hemorrhage, or infarction. Generalized cerebral atrophy is present. Areas of decreased attenuation within the periventricular white matter and cerebral white matter are present which could be compatible with microvascular ischemia. The basal cisterns are patent. No significant abnormality is demonstrated to involve the posterior fossa or cerebellum. Orbits and globes demonstrate no evidence of significant pathology. The paranasal sinuses are clear. No significant abnormality is demonstrated to involve the mastoid air cells. The calvarium and overlying soft tissues demonstrate no evidence of acute pathology. Impression: 1. No CT evidence of acute intracranial pathology. 01/03/2017 6:26 AM PROCEDURE INTERPRETED AT [facility] DEPARTMENT OF RADIOLOGY Final Report Signed by: Dr. Mario Mendoza
--- NOTE | 2017-01-03 06:31 | XRay Report ---
XR chest 1V portable Indication: Shortness of breath Comparison: None. Technique: Portable AP chest was performed. Findings: The heart size appears moderately to severely enlarged, stable. The mediastinal contour and hilar structures demonstrate no significant abnormalities. Lungs are clear. Bones and soft tissues demonstrate no evidence of acute pathology. Impression: 1. No evidence of acute pathology. 2. Stable degree of cardiomegaly. 01/03/2017 6:27 AM PROCEDURE INTERPRETED AT [facility] DEPARTMENT OF RADIOLOGY Final Report Signed by: Dr. Mario Mendoza
[2017-01-03 06:33] LABS: Barbiturates Screen,Urine Negative (Negative); Benzodiazepines Screen,Urine Negative (Negative); Cannabinoid Screen,Urine Negative (Negative); Opiate Screen,Urine Negative (Negative); Phencyclidine Screen,Urine Negative (Negative)
--- NOTE | 2017-01-03 07:12 | EKG Report ---
Stationary ECG Study [facility] Test Date: 01/03/2017 4:40:44 AM Pat Name: LIVIA BALBUENA Department: Room: Gender: F Operations Advisor: MYRNA : 1940 Requested by: Jhony Hubbard Order Number: [id number] Reading MD: IVET OCHOA Intervals [place] Rate: 108 P: 999 KS: 0 QRS: 75 QRSD: 87 T: 114 QT: 306 QTc: 369 Interpretive Statements ATRIAL FIBRILLATION WITH RAPID VENTRICULAR RESPONSE ABNORMAL RHYTHM ECG Electronically Signed On 01-06-17 08:20:02 CDT by IVET OCHOA [email or web address]
--- NOTE | 2017-01-03 08:10 | Hospitalist History & Physical ---
<Reinaldo Quispe - Last Filed: 01/03/17 07:56> Assessment and Plan - Time spent with patient Time spent with patient: Greater than 30 minutes (1) Syncope Status: Acute Assessment and plan: Syncope vs. TIA. Admit for observation. Head CT negative for any acute intracranial process. Labs unremarkable. Obtain carotid dopplers, lipid panel, MRI. Current Visit: Yes (2) Congestive heart failure Problem details: EF 55% Status: Acute Assessment and plan: Patient is followed by Dr. Li. Last echo done in July showed EF of >55%. Patient takes lasix at home. Will continue home meds here. Current Visit: No (3) Diabetes Status: Chronic Assessment and plan: Serum glucose 199. Accu-cheks ACHS and SSI per protocol. Current Visit: No (4) Hypokalemia Status: Acute Assessment and plan: K 2.6. Patient on lasix as well. May need to give po KCl supplements while here. Current Visit: No (5) Hypertension Status: Acute Current Visit: Yes History of Present Illness Chief complaint: TIA History of present illness: Ms. Albert is a 76 year old female with past medical history significant for CHF, atrial fibrillation, hypertension, diabetes mellitus, RA, asthma who presented to the ED via EMS for evaluation of syncope and possible TIA with onset at approx 0100 this morning. The patient is drowsy and a poor historian. Her daughter is at bedside and provided most of the history. According to the daughter, the patient woke at approx 0100 to urinate when she became dizzy and unsteady. Her made her lie back in bed, and the patient became unresponsive, soiling herself. The noted that the patient's mouth appeared twisted and she was mumbling incoherently. Patient also had some N/V. EMS was alerted. The patient noted that EMS was on the scene when she came to. On exam, the patient is a bit drowsy but alert and oriented. She does not display any focal or motor deficits. She denies headache, blurry vision, chest pain, palpitations, abdominal pain. Preliminary lab work is unremarkable outside of K 2.6 and [address] 199[address] Head CT was negative for any acute intracranial process. The patient is followed by Dr. Li, cardiology. She will be admitted to the hospital medicine service for observation and stroke workup. She is a full code. Case has been discussed with Dr. Brown. Home Medications Medication Instructions Recorded Confirmed Type Cholecalciferol (Vitamin D3) 1,000 unit PO DAILY 07/29/16 01/03/17 History [Vitamin D3] Hydrocodone/Acetaminophen 1 each PO BEDTIME PRN 07/29/16 01/03/17 History [Hydrocodon-Acetaminophen 5-325] Magnesium Chloride [Mag Delay] 64 mg PO DAILY 07/29/16 01/03/17 History Meloxicam [Mobic] 1 - 2 tablet PO DAILY PRN 07/29/16 01/03/17 History Metoprolol Tartrate Tab [Lopressor 100 mg PO TID 07/29/16 01/03/17 History Tab] Multivitamin (Centrum) [Centrum 1 tablet PO DAILY 07/29/16 01/03/17 History Tab] Potassium Chloride 20 meq PO DAILY 07/29/16 01/03/17 History Tolterodine Tartrate [Tolterodine 4 mg PO DAILY 07/29/16 01/03/17 History LA] cloNIDine HCl [Clonidine HCl] 0.2 mg PO BID 07/29/16 01/03/17 History glyBURIDE/METFORMIN 5-500 2 tablet PO DAILY W/BREAKFAST 07/29/16 01/03/17 History [Glucovance 5-500] Aspirin Chew Tab 81 mg PO DAILY tablet 08/02/16 01/03/17 Rx Insulin Glargine [Lantus] 42 unit SUBCUT BEDTIME 08/02/16 01/03/17 History Furosemide Tab [Lasix Tab] 40 mg PO DAILY #30 tablet 10/19/16 01/03/17 Rx Rivaroxaban [Xarelto] 1 tablet PO PC SUPPER 01/03/17 01/03/17 History Allergies Allergy/AdvReac Type Severity Reaction Status Date / Time Penicillins Allergy Unknown/Unable Verified 01/03/17 04:35 to obtain Medical,Surgical,& Family Hx - Medical History Cardio: History of: Cardiac Dysrhythmia (afib), CHF, Hypertension, Cardiovascular Problems (EF 55%, 07/2016) No history of: CAD, Pacemaker Psychological: No history of: Anxiety Disorders, Depression Neurology: No history of: Cerebrovascular Accident, Seizures, TIA Endocrine: History of: Diabetes Mellitus (IDDM) Rheumatology: History of;: Rheumatoid Arthritis Respiratory: History of: Obstructive Sleep Apnea Gastrointestinal: No history of: Gastrointestinal Bleed, Hematochezia, GI Problems Musculoskeletal: No history of: Amputation Hematology: No history of: Anemia, Bleeding Problems, Blood Disorders - Surgical History Cardiac Surgeries: Sugical HX of: Cardiac Catheterization (2 WEEKS AGO) Thoracic Surgeries: Patient denies;: Organ Transplant, Lobectomy Neurologic Surgeries: Patient denies: Neurologic Surgery Abdominal Surgeries: Patient denies: Abdominal Surgery Reproductive Surgeries: Surgical HX of;: Gynecologic Surgery, Hysterectomy Patient denies;: Genitourinary Surgery - Family History Family History: Reports;: Family Stroke - Social History Smoking Status: Never smoker Frequency of Alcohol Use: None Type of Drug Use: None Marital Status: Lives With:: Spouse Functional capacity: independent ambulation 12 point system: reviewed and no additional remarkable complaints except as stated Exam - Constitutional Vitals: Period Temp Pulse Resp BP Sys/Rodriguez Pulse Ox Last 24 Hr 97.4 F-97.4 F 62-62 20-22 223-223/135-135 97 Exam: General appearance: morbidly obese, no acute distress - Head Head exam: Present: normocephalic, atraumatic - Eye Eye exam: Present: EOMI. Absent: conjunctival injection, nystagmus Pupils: Present: CHARLY, normal accommodation - ENT ENT exam: Present: normal exam, normal external ear exam - Neck Neck exam: Present: normal inspection. Absent: lymphadenopathy, tenderness, thyromegaly - Respiratory Respiratory exam: Present: clear to auscultation bilaterally. Absent: rales, rhonchi, wheezes - Cardiovascular Cardiovascular exam: Present: regular rate and rhythm. Absent: carotid bruit, gallop, rubs - GI/Abdominal GI/Abdominal exam: Present: normal bowel sounds. Absent: ascites, distended, mass - Extremities Exam Extremities exam: Present: normal inspection, normal capillary refill. Absent: edema - Back Exam Back exam: Absent: CVA tenderness (L), CVA tenderness (R) - Neurological Exam Neurological exam: Present: alert, oriented X3 - Psychiatric Psychiatric exam: Present: normal affect, normal mood - Skin Skin exam: Present: normal color, warm, dry Results - Labs CBC & BMP: 01/03/17 04:49 01/03/17 05:27 Lab Results: I have reviewed the past 24 hour labs - Diagnostic Findings Procedure: CT: image reviewed by me, report reviewed by me <Tip Brown - Last Filed: 01/03/17 11:31> History of Present Illness History of present illness: Ms. Albert is a 76 year old female with past medical history of congestive heart failure, atrial fibrillation, essential hypertension, diabetes mellitus, and rheumatoid arthritis. She experienced an episode of syncope today. She is admitted to the hospital for further evaluation and management of syncope. A CT scan of her head demonstrated no acute abnormalities. Telemetry monitoring is demonstrated her to be in atrial fibrillation with rapid ventricular response. She is followed by Dr. Li of cardiology who will be consulted. She will undergo evaluation for a possible stroke. At the present time she is comfortable with no complaints. She is not experiencing chest pain, shortness of breath, palpitations, or other neurologic symptoms. I have interviewed and examined the patient. I have reviewed all the pertinent test results. I have discussed with the patient and her family our impression and plans. I agree with the assessment and plans as noted by Jose Enrique. Exam - Constitutional Vitals: Period Temp Pulse Resp BP Sys/Rodriguez Pulse Ox Last 24 Hr 97.4 F-97.4 F 62-62 20-22 223-223/135-135 97 Results - Labs CBC & BMP: 01/03/17 04:49 01/03/17 05:27
[2017-01-03] MEDS ORDERED: LABETALOL 20 MG/4 ML SYRINGE IV PRN (08:22)
[2017-01-03] MEDS ORDERED: GLUCAGON 1 MG VIAL IM PRN (08:22)
[2017-01-03] MEDS ORDERED: ONDANSETRON 4 MG/2 ML VIAL IV PRN (08:22)
[2017-01-03] MEDS ORDERED: ACETAMINOPHEN 325 MG TABLET PO PRN (08:22)
[2017-01-03] MEDS ORDERED: SODIUM CHLORIDE 0.9% 1,000 ML IV SCH (08:30)
[2017-01-03 08:51] LABS: Cholesterol 119 MG/DL (50-200); HDL Cholesterol 45 MG/DL (40-60); Risk Ratio 2.64; Triglycerides 65 MG/DL (2-150); Troponin I Only < 0.015 NG/ML (0.00-0.045)
[2017-01-03] MEDS ORDERED: PANTOPRAZOLE 40 MG TABLET PO SCH (09:00)
[2017-01-03] MEDS ORDERED: ENOXAPARIN 40 MG/0.4 ML SYRINGE SUBCUT SCH (09:30)
--- NOTE | 2017-01-03 09:34 | Ultrasound Report ---
US carotid duplex BI Indication: Stroke Comparison: None. Technique: Using transcutaneous probe, routine carotid arterial duplex ultrasound performed. Ultrasound images were captured and stored. Estimation of stenosis will be made using indirect NASCET criteria. Ultrasound images were captured and stored. Findings: Grayscale and color Doppler findings: No significant atherosclerotic plaque is noted. No significant spectral broadening is present. Peak systolic velocities are as follows (centimeters per second): Right CCA: 59. Right proximal ICA: 48. Right distal ICA: 66. Right ICA/CCA ratio: 1.1. Left CCA: 43. Left proximal ICA: 27. Left distal ICA: 74. Left ICA/CCA ratio: 1.7. External carotid arteries: External carotid arteries are bilaterally patent. Vertebral arteries: Vertebral arteries bilaterally demonstrate antegrade flow. Impression: 1.No hemodynamically significant stenosis is estimated to involve either carotid arterial system. 01/03/2017 9:31 AM PROCEDURE INTERPRETED AT [facility] DEPARTMENT OF RADIOLOGY Final Report Signed by: Dr. Mario Mendoza
[2017-01-03] MEDS ORDERED: ENOXAPARIN 40 MG/0.4 ML SYRINGE ONE (10:16)
[2017-01-03] MEDS ORDERED: FUROSEMIDE 40 MG TABLET ONE (10:16)
[2017-01-03] MEDS ORDERED: POTASSIUM CHLORIDE 20 MEQ TABLET PO ONE (10:16)
[2017-01-03] MEDS ORDERED: ASPIRIN 325 MG TABLET ONE (10:17)
[2017-01-03] MEDS ORDERED: PANTOPRAZOLE 40 MG TABLET PO ONE (10:17)
[2017-01-03] MEDS ORDERED: MAGNESIUM CHLORIDE 64 MG TABLET PO ONE (10:17)
[2017-01-03] MEDS: MAGNESIUM CHLORIDE 64 MG TABLET PO SCH (10:21)
[2017-01-03] MEDS: ASPIRIN 325 MG TABLET PO SCH (10:22)
[2017-01-03] MEDS: FUROSEMIDE 40 MG TABLET PO SCH (10:22)
[2017-01-03] MEDS: POTASSIUM CHLORIDE 20 MEQ TABLET PO SCH (10:23)
[2017-01-03] MEDS: TOLTERODINE LA 4 MG CAPSULE PO SCH (10:46)
[2017-01-03] MEDS ORDERED: INSULIN LISPRO 100 UNIT/ML SUBCUT ONE (11:36)
[2017-01-03] MEDS: INSULIN LISPRO 100 UNIT/ML SUBCUT SCH ×3 (11:39→21:51)
[2017-01-03] MEDS ORDERED: hydrALAZINE 20 MG/1 ML VIAL ONE ×2 (13:11→13:23)
[2017-01-03] MEDS ORDERED: ENOXAPARIN 30 MG/0.3 ML SYRINGE ONE (13:13)
[2017-01-03] MEDS ORDERED: FUROSEMIDE 40 MG/4 ML VIAL ONE (13:13)
[2017-01-03] MEDS ORDERED: FUROSEMIDE 40 MG/4 ML VIAL IV STA (13:16)
[2017-01-03] MEDS ORDERED: ENOXAPARIN 30 MG/0.3 ML SYRINGE SUBCUT STA (13:16)
[2017-01-03] MEDS ORDERED: DILTIAZEM 50 MG/10 ML VIAL IV ONE ×2 (13:23→15:48)
[2017-01-03] MEDS ORDERED: hydrALAZINE 20 MG/1 ML VIAL IV STA (13:25)
[2017-01-03] MEDS ORDERED: SUCCINYLCHOLINE 200 MG/10 ML VIAL ONE (13:31)
[2017-01-03] MEDS ORDERED: ONDANSETRON 4 MG/2 ML VIAL ONE (13:31)
[2017-01-03] MEDS ORDERED: ETOMIDATE 20 MG/10 ML VIAL IV ONE (13:32)
[2017-01-03] MEDS ORDERED: ONDANSETRON 4 MG/2 ML VIAL IV STA (13:33)
[2017-01-03] MEDS ORDERED: PROPOFOL 1,000 MG/100 ML BOTTLE IV ONE (13:34)
[2017-01-03] MEDS ORDERED: SUCCINYLCHOLINE 200 MG/10 ML VIAL IV STA (13:37)
[2017-01-03] MEDS ORDERED: ETOMIDATE 20 MG/10 ML VIAL IV STA (13:37)
[2017-01-03] MEDS: PROPOFOL 1,000 MG/100 ML BOTTLE IV SCH ×3 (13:41→23:15)
[2017-01-03] MEDS ORDERED: DILTIAZEM 50 MG/10 ML VIAL IV STA (13:54)
--- NOTE | 2017-01-03 14:18 | XRay Report ---
Referring Physician: Kaylee Reyna DO Exam: XR chest 1V portable Date: January 03, 2017 at 1:40 PM Reason: Post tube placement Comparison: Chest one view portable January 03, 2017 Findings: An endotracheal tube is in place. Its distal tip appears to be located at the jameel, and retraction of at least 2 cm is recommended. The cardiac silhouette is again enlarged. There is minimal atelectasis at the right lung base. No pneumothorax or pleural effusion is identified. No acute osseous process is seen. Impression: 1. An endotracheal tube is in place with its distal tip at the level of the jameel. Retraction of least 2 cm is recommended. 2. Cardiomegaly. 3. Minimal atelectasis at the right lung base. An Emergency Department nurse was notified on January 03, 2017 at 2:16 PM. PROCEDURE INTERPRETED AT [facility] DEPARTMENT OF RADIOLOGY Final Report Signed by: Dr. Gabriel Larson
--- NOTE | 2017-01-03 14:19 | Event Note ---
Ms. Albert experienced a sudden onset of severe shortness of breath. Blood pressure increased to 240/160 and her heart rate to 200/min. Telemetry monitoring continued to demonstrate atrial fibrillation. She was treated first with a degree breather mask and administered intravenous hydralazine, labetalol , and diltiazem, and furosemide. She continued to experience severe respiratory distress. She was intubated and placed on assisted ventilation. She underwent a diuresis of approximately 900 mL. Her blood pressure decreased to 154/110 and her heart rate decreased to 1 10/min. She was maintained on to prevent sedation. An electrocardiogram demonstrated atrial fibrillation with rapid ventricular response with no acute abnormalities. Dr. Schulte of pulmonary was consulted. The patient is presently undergoing a CT angiogram of the chest to rule out a pulmonary embolus. Prior to the event she had received Lovenox 40 mg subcutaneous. She was administered another 30 mg subcutaneous at the time of this acute event.
[2017-01-03 15:09] LABS: ABG Base Excess 0.6 MMOL/L (-2.5-2.5); ABG HCO3 24.9 MMOL/L (20-26); ABG Oxygen Saturation 99.9 % (95-100); ABG PCO2 37.3 MM HG (35-48); ABG PH 7.427 (7.35-7.45); ABG TCO2 21.1 MMOL/L (23-27)
--- NOTE | 2017-01-03 15:29 | CT Report ---
CT chest PE study Indication: Intubated. "Severe respiratory distress". CT CHEST WITH CONTRAST, PE PROTOCOL DLP: 776 mGy*cm. One or more of the following dose reduction techniques was used: Automated exposure control, adjustment of the mA and/or kV according the patient size, or use of iterative reconstruction techniques. Comparison: 10/17/2016 Technique: Axial CT images of the chest were obtained during the pulmonary arterial phase of contrast injection. Coronal reconstructions were provided. Omnipaque 350, 80 cc. Findings: Obesity again shown. Endotracheal tube terminates 1.5 cm cephalad to the jameel. No pulmonary artery filling defects are identified to the segmental level. Main pulmonary artery is dilated at 38 mm diameter. This is stable. Coronary artery calcifications and ossified atheromatous disease of the aortic arch are present but mild. Heart is minimally enlarged. Small pericardial effusion noted. No pathologic mediastinal, axillary or hilar lymphadenopathy. Linear opacities are present within the dependent aspect of both lower lobes, possibly aspiration or simply atelectasis. No mass identified. Pleural spaces are clear. Degenerative changes thoracic spine, fatty infiltration of the liver and distention of the IVC again noted. Impression: 1. No evidence of PE. 2. Continued main pulmonary artery enlargement consistent with pulmonary hypertension. Continued mild cardiomegaly. Continued small pericardial effusions. 3. Bilateral infrahilar dependent linear densities, either aspiration pneumonitis or simply atelectasis. 4. Intubated. PROCEDURE INTERPRETED AT [facility] DEPARTMENT OF RADIOLOGY Final Report Signed by: Marcello Piedra M.D.
--- NOTE | 2017-01-03 16:02 | Pulmonology Consult Note ---
Assessment and Plan (1) Acute respiratory failure Status: Acute Assessment and plan: ABGs look okay on 100% oxygen. Will reduce FiO2 to 60%. She needs evaluation of her cardiac status and syncope because before trying to wean. I am concerned that she may have had a seizure. Current Visit: Yes (2) Congestive heart failure Problem details: EF 55% Status: Acute Assessment and plan: Has diastolic dysfunction. Atrial fibrillation. Followed by cardiology. Current Visit: No (3) Deep vein thrombosis (DVT) of femoral vein of left lower extremity Status: Acute Assessment and plan: This was noted during a recent hospitalization a couple months back and she is on anticoagulants. She had a CT PE protocol done with no signs of pulmonary emboli. Current Visit: No (4) Syncope Status: Acute Assessment and plan: This may be due to arrhythmia, postural hypotension, hypoglycemia, or possibly a seizure. Current Visit: Yes History of Present Illness Chief complaint: Syncope, respiratory failure History of present illness: Ms. Albert is a 76 year old female has a history of congestive heart failure and atrial fibrillation. Apparently during the night she had a brief blackout spell and lost control of her urine and bowel movements. Family is not sure if she had a seizure but sounds like she may have had one. She has a history of atrial fibrillation and is chronically on anticoagulants. She came into the emergency room and was fairly stable but apparently became quite anxious and in respiratory distress and was sedated and intubated. She is followed by Dr. Li for cardiology. She has had history of asthma rheumatoid arthritis diabetes mellitus hypertension. Apparently she has fairly normal LV ejection fraction and has diastolic dysfunction. Most of the history of gotten from her family patient is not able to give history due to sedation and mechanical ventilation. Her [id number] said that the patient just did not feel good last night but has not had a recent cough congestion fever shortness of breath or chills. Home Medications Medication Instructions Recorded Confirmed Type Cholecalciferol (Vitamin D3) 1,000 unit PO DAILY 07/29/16 01/03/17 History [Vitamin D3] Hydrocodone/Acetaminophen 1 each PO BEDTIME PRN 07/29/16 01/03/17 History [Hydrocodon-Acetaminophen 5-325] Magnesium Chloride [Mag Delay] 64 mg PO DAILY 07/29/16 01/03/17 History Meloxicam [Mobic] 1 - 2 tablet PO DAILY PRN 07/29/16 01/03/17 History Metoprolol Tartrate Tab [Lopressor 100 mg PO TID 07/29/16 01/03/17 History Tab] Multivitamin (Centrum) [Centrum 1 tablet PO DAILY 07/29/16 01/03/17 History Tab] Potassium Chloride 20 meq PO DAILY 07/29/16 01/03/17 History Tolterodine Tartrate [Tolterodine 4 mg PO DAILY 07/29/16 01/03/17 History LA] cloNIDine HCl [Clonidine HCl] 0.2 mg PO BID 07/29/16 01/03/17 History glyBURIDE/METFORMIN 5-500 2 tablet PO DAILY W/BREAKFAST 07/29/16 01/03/17 History [Glucovance 5-500] Aspirin Chew Tab 81 mg PO DAILY tablet 08/02/16 01/03/17 Rx Insulin Glargine [Lantus] 42 unit SUBCUT BEDTIME 08/02/16 01/03/17 History Furosemide Tab [Lasix Tab] 40 mg PO DAILY #30 tablet 10/19/16 01/03/17 Rx Rivaroxaban [Xarelto] 1 tablet PO PC SUPPER 01/03/17 01/03/17 History Allergies Allergy/AdvReac Type Severity Reaction Status Date / Time Penicillins Allergy Unknown/Unable Verified 01/03/17 04:35 to obtain ROS unobtainable: due to endotracheal tube Exam (Pulmonay) H&P - Constitutional Vitals: Period Temp Pulse Resp BP Sys/Rodriguez Pulse Ox Last 24 Hr 87-94 18-20 149-167/89-94 99-100 Exam: Blood pressure 150/90. Vital signs otherwise normal. Tubes react to light. Orotracheal tube in place. Neck is supple no bruits. Chest sounds clear equal breath sounds. Heart is irregular without murmur. PMI displaced to the left. Abdomen soft no masses. Extremities no clubbing cyanosis edema. Medical,Surgical,& Family Hx - Medical History Cardio: History of: Cardiac Dysrhythmia (afib), CHF, Hypertension, Cardiovascular Problems (EF 55%, 07/2016) No history of: CAD, Pacemaker Psychological: No history of: Anxiety Disorders, Depression Neurology: No history of: Cerebrovascular Accident, Seizures, TIA Endocrine: History of: Diabetes Mellitus (IDDM) Rheumatology: History of;: Rheumatoid Arthritis Respiratory: History of: Obstructive Sleep Apnea Gastrointestinal: No history of: Gastrointestinal Bleed, Hematochezia, GI Problems Musculoskeletal: No history of: Amputation Hematology: No history of: Anemia, Bleeding Problems, Blood Disorders - Surgical History Cardiac Surgeries: Sugical HX of: Cardiac Catheterization (2 WEEKS AGO) Thoracic Surgeries: Patient denies;: Organ Transplant, Lobectomy Neurologic Surgeries: Patient denies: Neurologic Surgery Abdominal Surgeries: Patient denies: Abdominal Surgery Reproductive Surgeries: Surgical HX of;: Gynecologic Surgery, Hysterectomy Patient denies;: Genitourinary Surgery - Family History Family History: Reports;: Family Stroke - Social History Smoking Status: Never smoker Frequency of Alcohol Use: None Type of Drug Use: None Results - Labs CBC & BMP: 01/03/17 04:49 01/03/17 05:27 Lab Results: I have reviewed the past 24 hour labs - Diagnostic Findings Procedure: Chest x-ray: image reviewed by me (Cardiomegaly. ET tube very close to the jameel. It has been moved back 2 cm since the x-ray was made.), CT - chest: image reviewed by me (No pulmonary embolism. Minimal bibasilar atelectasis at the bases. Heart cardiomegaly.)
[2017-01-03] MEDS ORDERED: LEVOFLOXACIN INJ 500 MG in PREMIX 1 EACH IV SCH (17:00)
[2017-01-03 17:18] LABS: Basophils % 0.2 % (0.0-0.8); Hematocrit 44.5 VOL% (35.7-47.0); Hemoglobin 14.2 GM/DL (12.0-16.0); Immature Granulocytes % 0.9 %; Immature Granulocytes Absolute 0.09 #; Lymphocytes # 0.9 10*3/uL (1.4-4.0); Lymphocytes % 8.1 % (21.3-54.2); Mean Corpuscular HGB Conc 31.9 GM/DL (32-36); Mean Corpuscular Hemoglobin 26 PG (27-34); Mean Corpuscular Volume 80.9 FL (87-102); Mean Platelet Volume 10.5 FL (9.6-12.0); Monocytes # 0.6 10*3/uL (0.11-0.8); Monocytes % 5.3 % (1.7-12.7); Neutrophils % 85.5 % (38.7-73.9); Platelet Count 184 T/CUMM (130-400); Red Cell Distribution Width 15.9 % (9.3-17.3); White Blood Count 10.5 T/CUMM (4-12)
[2017-01-03 17:20] LABS: ABG Base Excess 3.9 MMOL/L (-2.5-2.5); ABG HCO3 27.9 MMOL/L (20-26); ABG Oxygen Saturation 99.2 % (95-100); ABG PCO2 38.4 MM HG (35-48); ABG PH 7.467 (7.35-7.45); ABG TCO2 23.9 MMOL/L (23-27); Allen Test Positive; Pt O2 Delivery Device Ventilator
[2017-01-03] MEDS: POTASSIUM CHLORIDE 20 MEQ/15 ML UDCUP PER TUBE PRN ×3 (17:26→22:07)
[2017-01-03 17:38] LABS: Calcium 8.5 MG/DL (8.5-10.1); Osmolality,Calculated 284.3 MOS/KG (273-304); Potassium 2.7 MMOL/L (3.5-5.1)
[2017-01-03] MEDS: CEFEPIME 1,000 MG in SODIUM CHLORIDE 0.9% 100 ML IV SCH (18:21)
--- NOTE | 2017-01-03 20:36 | Cardiology Consult Note ---
Assessment and Plan (1) Syncope Status: Acute Current Visit: Yes (2) Acute respiratory failure Status: Acute Current Visit: Yes (3) Paroxysmal a-fib Status: Chronic Current Visit: Yes (4) DVT (deep venous thrombosis) Status: Chronic Current Visit: Yes (5) Acute dyspnea Status: Acute Current Visit: No (6) Essential hypertension Status: Chronic Current Visit: No (7) Diabetes Status: Chronic Current Visit: No (8) Obesity Status: Chronic Current Visit: No (9) Hypokalemia Status: Acute Current Visit: No (10) Pulmonary hypertension Status: Chronic Current Visit: No History of Present Illness - Data of Consult Patient: known to practice within the last 3 years Consult date: 01/03/17 - Consult Narrative Reason for consult: afib 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 Albert is a 76 year old female who is usually followed by Dr. Li. She has a history of atrial fibrillation and is on chronic anticoagulation. There is a history of "congestive heart failure" listed in her chart, although I do not see a record of what this was from. She does not have a history of documented cardiomyopathy, most recent cardiac catheterization October 2016 did not show any significant obstructive coronary artery disease and her ejection fraction was 50%. No history of significant valvular abnormality. She developed a post-cath hematoma and nonocclusive right common femoral vein in October 2016. She was changed from Xarelto to Eliquis for 1 month and then put back on the Xarelto. The history of her acute event is obtained from the hospital chart because the patient is intubated and there is no family at the bedside. It seems as if the patient awoke at approximately 1 AM to urinate and developed symptoms of dizziness and gait instability. She was put back in bed and became unresponsive , developed some mumbling, nausea and vomiting. She was brought to the emergency room for further evaluation and treatment. In the emergency room she did develop some atrial fibrillation with rapid ventricular response. She also developed some shortness of breath and required intubation. She is described as having "congestive heart failure", but her BNP is less than 200, chest x-ray and CT did not really describe significant pulmonary edema that would lead to respiratory extremis. CT scan of the chest is excluded pulmonary embolism. Impression and plan: 1. Syncope with mental status change-etiology is unclear. Possibly related to an acute neurologic event such as stroke in this patient with history of atrial fibrillation. This is being worked up by the primary team. 2. Atrial fibrillation-she is a long-standing history of paroxysmal atrial fibrillation and is chronically anticoagulated for this. She is currently rate controlled. Lovenox is being started as the patient is intubated. 3. Hypertension-this is currently now well controlled. We will continue to follow and adjust medications as needed. 4. "Congestive heart failure"-I do not see evidence of congestive heart failure. She is not volume overloaded on exam, chest x-ray is clear and BNP is less than 400. 5. Pulmonary hypertension-chronic 6. Recent history of right lower extremity DVT. CT scan of the chest today does not show any PE. 7. Respiratory failure-the patient was intubated and will undergo supportive care. CC: Tip Brown - Home Medications and Allergies Home Medications: Home Medications Medication Instructions Recorded Confirmed Type Cholecalciferol (Vitamin D3) 1,000 unit PO DAILY 07/29/16 01/03/17 History [Vitamin D3] Hydrocodone/Acetaminophen 1 each PO BEDTIME PRN 07/29/16 01/03/17 History [Hydrocodon-Acetaminophen 5-325] Magnesium Chloride [Mag Delay] 64 mg PO DAILY 07/29/16 01/03/17 History Meloxicam [Mobic] 1 - 2 tablet PO DAILY PRN 07/29/16 01/03/17 History Metoprolol Tartrate Tab [Lopressor 100 mg PO TID 07/29/16 01/03/17 History Tab] Multivitamin (Centrum) [Centrum 1 tablet PO DAILY 07/29/16 01/03/17 History Tab] Potassium Chloride 20 meq PO DAILY 07/29/16 01/03/17 History Tolterodine Tartrate [Tolterodine 4 mg PO DAILY 07/29/16 01/03/17 History LA] cloNIDine HCl [Clonidine HCl] 0.2 mg PO BID 07/29/16 01/03/17 History glyBURIDE/METFORMIN 5-500 2 tablet PO DAILY W/BREAKFAST 07/29/16 01/03/17 History [Glucovance 5-500] Aspirin Chew Tab 81 mg PO DAILY tablet 08/02/16 01/03/17 Rx Insulin Glargine [Lantus] 42 unit SUBCUT BEDTIME 08/02/16 01/03/17 History Furosemide Tab [Lasix Tab] 40 mg PO DAILY #30 tablet 10/19/16 01/03/17 Rx Rivaroxaban [Xarelto] 1 tablet PO PC SUPPER 01/03/17 01/03/17 History Allergies/Adverse Reactions: Allergies Allergy/AdvReac Type Severity Reaction Status Date / Time Penicillins Allergy Unknown/Unable Verified 01/03/17 04:35 to obtain ROS unobtainable: due to endotracheal tube, due to mental status Medical,Surgical,& Family Hx - Medical History Cardio: History of: Cardiac Dysrhythmia (afib), Hypertension, Cardiovascular Problems (EF 55%, 07/2016) No history of: CAD, Pacemaker Psychological: No history of: Anxiety Disorders, Depression Neurology: No history of: Cerebrovascular Accident, Seizures, TIA HEENT: History of: Eye Problem (GLASSES) Endocrine: History of: Diabetes Mellitus (IDDM) Rheumatology: History of;: Rheumatoid Arthritis Respiratory: History of: Obstructive Sleep Apnea Gastrointestinal: No history of: Gastrointestinal Bleed, Hematochezia, GI Problems Musculoskeletal: History of: Back/Neck Problems No history of: Amputation Hematology: No history of: Anemia, Bleeding Problems, Blood Disorders - Surgical History Cardiac Surgeries: Sugical HX of: Cardiac Catheterization (2 WEEKS AGO) Thoracic Surgeries: Patient denies;: Organ Transplant, Lobectomy Neurologic Surgeries: Patient denies: Neurologic Surgery Abdominal Surgeries: Patient denies: Abdominal Surgery Reproductive Surgeries: Surgical HX of;: Gynecologic Surgery, Hysterectomy Patient denies;: Genitourinary Surgery - Family History Family History: Reports;: Family Heart Disease (MOTHER), Family Stroke - Social History Smoking Status: Never smoker Frequency of Alcohol Use: None Type of Drug Use: None Physical Examination Vital Signs Temp Pulse Resp BP Pulse Ox 97.4 F L 62 22 223/135 97 01/03/17 04:27 01/03/17 04:27 01/03/17 04:27 01/03/17 04:27 01/03/17 04:27 Other: General appearance: normal weight, no acute distress, intubated, not spontaneously arousable during the exam, although will respond to stimulation. - Head Head exam: Present: normocephalic, atraumatic,. Absent: hematoma, laceration - Eye Eye exam: Absent: conjunctival injection, nystagmus, periorbital swelling, scleral icterus, laceration to eyelids Pupils: Present: CHARLY. Absent: constricted, dilated, fixed, irregular, unequal - ENT ENT exam: Present: normal exam, normal external ear exam - Neck Neck exam: Present: normal inspection. Absent: lymphadenopathy, meningismus, tenderness, thyromegaly - Respiratory Respiratory exam: Present: clear to auscultation bilaterally anteriorly, there is normal rise with ventilated breaths. Absent: accessory muscle use, chest wall tenderness - Cardiovascular Cardiovascular exam: Present: regular rate and rhythm. Absent: carotid bruit, gallop, JVD, rubs - GI/Abdominal GI/Abdominal exam: Present: normal bowel sounds. Absent: distended, firm, guarding, hernia, mass, tenderness, rebound, soft - Extremities Exam Extremities exam: Present: normal inspection, normal capillary refill. Absent: calf tenderness, edema - Back Exam Back exam: Unable to assess due to patient being on the ventilator - Neurological Exam Neurological exam: Unable to fully assess due to patient being on the ventilator. She does appear to move all 4 extremities. - Psychiatric Psychiatric exam: Unable to assess due to patient being on the ventilator. - Skin Skin exam: Present: normal color, warm, dry, intact. Absent: cyanosis, diaphoretic, rash, urticaria Result/EKG - Labs CBC & BMP: 01/03/17 16:37 01/03/17 16:37 Lab Results: I have reviewed the past 24 hour labs Labs: Laboratory Results - last 24 hr 01/03/17 01/03/17 01/03/17 11:02 11:05 11:05 WBC RBC Hgb Hct MCV MCH MCHC RDW Plt Count MPV Neut % (Auto) Lymph % (Auto) [place] % (Auto) Eos % (Auto) Baso % (Auto) Neut # (Auto) Lymph # (Auto) [place] # (Auto) Eos # (Auto) Baso # (Auto) Immature Gran % Nucleated RBC % Immature Gran # Nucleated RBCs # ABG pH ABG pCO2 ABG pO2 ABG HCO3 ABG Total CO2 ABG O2 Saturation ABG Base Excess FiO2 Sodium Potassium Chloride Carbon Dioxide Anion Gap BUN Creatinine GFR Calculation BUN/Creatinine Ratio Glucose POC Glucose 269 H Hemoglobin A1c 8.2 H Calculated Osmolality Calcium Troponin I < 0.015 01/03/17 01/03/17 01/03/17 14:00 16:37 16:37 WBC 10.5 RBC 5.50 Hgb 14.2 Hct 44.5 MCV 80.9 L MCH 26 L MCHC 31.9 L RDW 15.9 Plt Count 184 D MPV 10.5 Neut % (Auto) 85.5 H Lymph % (Auto) 8.1 L [place] % (Auto) 5.3 Eos % (Auto) 0.0 Baso % (Auto) 0.2 Neut # (Auto) 9.0 H Lymph # (Auto) 0.9 L [place] # (Auto) 0.6 Eos # (Auto) 0.0 Baso # (Auto) 0.0 Immature Gran % 0.9 Nucleated RBC % 0.0 Immature Gran # 0.09 Nucleated RBCs # 0.00 ABG pH 7.427 ABG pCO2 37.3 ABG pO2 377.0 H ABG HCO3 24.9 ABG Total CO2 21.1 L ABG O2 Saturation 99.9 ABG Base Excess 0.6 FiO2 Sodium Potassium Chloride Carbon Dioxide Anion Gap BUN Creatinine GFR Calculation BUN/Creatinine Ratio Glucose POC Glucose Hemoglobin A1c Calculated Osmolality Calcium Troponin I 0.050 H D 01/03/17 01/03/17 01/03/17 16:37 16:56 17:00 WBC RBC Hgb Hct MCV MCH MCHC RDW Plt Count MPV Neut % (Auto) Lymph % (Auto) [place] % (Auto) Eos % (Auto) Baso % (Auto) Neut # (Auto) Lymph # (Auto) [place] # (Auto) Eos # (Auto) Baso # (Auto) Immature Gran % Nucleated RBC % Immature Gran # Nucleated RBCs # ABG pH 7.467 H ABG pCO2 38.4 ABG pO2 159.0 H ABG HCO3 27.9 H ABG Total CO2 23.9 ABG O2 Saturation 99.2 ABG Base Excess 3.9 H FiO2 60.00 Sodium 141 Potassium 2.7 L Chloride 103 Carbon Dioxide 27 Anion Gap 13.7 BUN 16 Creatinine 1.00 GFR Calculation 83 BUN/Creatinine Ratio 16.00 Glucose 156 H POC Glucose 147 H Hemoglobin A1c Calculated Osmolality 284.3 Calcium 8.5 Troponin I - EKG EKG results: interpreted by me EKG shows: atrial fibrillation
[2017-01-03] MEDS: ATORVASTATIN 40 MG TABLET PO SCH (21:35)
[2017-01-03] MEDS: PANTOPRAZOLE 40 MG VIAL IV SCH (21:36)
[2017-01-04] MEDS: POTASSIUM CHLORIDE 20 MEQ/15 ML UDCUP PER TUBE PRN ×2 (00:03→06:51)
[2017-01-04] MEDS: ENOXAPARIN 80 MG/0.8 ML SYRINGE SUBCUT SCH ×2 (01:22→13:06)
[2017-01-04] MEDS: CEFEPIME 1,000 MG in SODIUM CHLORIDE 0.9% 100 ML IV SCH ×2 (02:13→14:12)
[2017-01-04 03:34] LABS: ABG Base Excess 2.7 MMOL/L (-2.5-2.5); ABG HCO3 26.4 MMOL/L (20-26); ABG PCO2 37.5 MM HG (35-48); ABG PH 7.465 (7.35-7.45); ABG TCO2 27.5 MMOL/L (23-27); Allen Test Positive; Pt O2 Delivery Device Ventilator
[2017-01-04 04:41] LABS: Basophils % 0.2 % (0.0-0.8); Hematocrit 35.9 VOL% (35.7-47.0); Hemoglobin 11.7 GM/DL (12.0-16.0); Immature Granulocytes % 0.5 %; Immature Granulocytes Absolute 0.06 #; Lymphocytes # 1.2 10*3/uL (1.4-4.0); Lymphocytes % 9.4 % (21.3-54.2); Mean Corpuscular HGB Conc 32.6 GM/DL (32-36); Mean Corpuscular Hemoglobin 25 PG (27-34); Mean Platelet Volume 10.3 FL (9.6-12.0); Monocytes # 1.1 10*3/uL (0.11-0.8); Monocytes % 8.7 % (1.7-12.7); Neutrophils # 10.4 10*3/uL (1.4-7.4); Neutrophils % 81.2 % (38.7-73.9); Platelet Count 199 T/CUMM (130-400); White Blood Count 12.8 T/CUMM (4-12)
[2017-01-04 05:32] LABS: Osmolality,Calculated 287.4 MOS/KG (273-304); Potassium 3.9 MMOL/L (3.5-5.1)
[2017-01-04] MEDS ORDERED: SODIUM CHLORIDE 0.9% 1,000 ML IV SCH (06:00)
--- NOTE | 2017-01-04 06:59 | Pulmonology Progress Note ---
Pulmonary - PN: Subj Interval history: This 76-year-old black female had a syncopal episode. The etiology of it is not clear. May have been an arrhythmia or seizure. Her potassium was 2.6 and has been corrected. She had respiratory distress in the emergency room and was intubated. She has been followed by cardiology with a diagnosis of congestive heart failure which is apparently diastolic and is well controlled at the current time. She has chronic atrial fibrillation and has cardiomegaly on her x -ray. Her BNP is not very elevated. This morning she is more alert and ABGs look good. X-rays show some atelectasis in the right middle lobe likely due to mucous plugging. I will bronchoscope her this morning. Will change to IMV and start weaning. At some point will need neurology consult and EEG. Exam (Progress Note) - Constitutional Vitals: Period Temp Pulse Resp BP Sys/Rodriguez Pulse Ox Last 24 Hr 97.0 F-101.4 F 73-177 12-34 76-265/50-180 96-100 Exam: Patient is responsive. Atrial fibrillation with heart rate in the mid 80s. Vital signs otherwise normal. Pupils react to light. Orotracheal tube in place. Neck is supple. No bruits. Chest reveals few rhonchi on the right lung otherwise clear. Heart irregular without murmur. Abdomen soft nontender no masses. Extremities no clubbing cyanosis edema. Calves nontender. Results - Labs CBC & BMP: 01/04/17 04:21 01/04/17 04:21 Lab Results: I have reviewed the past 24 hour labs - Diagnostic Findings Procedure: Chest x-ray: image reviewed by me (Cardiomegaly. ET tube just above jameel. Right middle lobe atelectasis.) Assessment and Plan (1) Acute respiratory failure Status: Acute Assessment and plan: ABGs look okay on 100% oxygen. Will reduce FiO2 to 60%. She needs evaluation of her cardiac status and syncope because before trying to wean. I am concerned that she may have had a seizure. 01/04/2017 ABGs look good. Reduce FiO2. Has some atelectasis right middle lobe which will require bronchoscopy. Current Visit: Yes (2) Congestive heart failure Problem details: EF 55% Status: Acute Assessment and plan: Has diastolic dysfunction. Atrial fibrillation. Followed by cardiology. 01/04/2017 carries a diagnosis of congestive heart failure for which she is followed by cardiology. Apparently he has normal LV ejection fraction. Do not think she is in forest failure at present. Current Visit: No (3) Deep vein thrombosis (DVT) of femoral vein of left lower extremity Status: Acute Assessment and plan: This was noted during a recent hospitalization a couple months back and she is on anticoagulants. She had a CT PE protocol done with no signs of pulmonary emboli. 01/04/2017 on anticoagulants. Current Visit: No (4) Syncope Status: Acute Assessment and plan: This may be due to arrhythmia, postural hypotension, hypoglycemia, or possibly a seizure. 01/04/2017 etiology not clear. Will need neurologic evaluation. She does have some pulmonary hypertension in addition to an arrhythmia. Family thought her glucose might have been low as well. We do not have a measured one at that time. Current Visit: Yes (5) Pneumonia Status: Acute Assessment and plan: She had fever after readmission to the ICU. Likely has pneumonia. Now has developed some right middle lobe atelectasis. We have started antibiotics. Will bronchoscope and culture. Current Visit: Yes
[2017-01-04] MEDS ORDERED: LIDOCAINE 1% 20 ML VIAL MISC INJ ONE (07:18)
--- NOTE | 2017-01-04 07:23 | Operative Note ---
Date of procedure: 01/04/17 (Fiberoptic bronchoscopy) Pre-op diagnosis: Atelectasis right middle lobe suspect mucous plug Post-op diagnosis: same Procedure: Patient was turned to 100% oxygen on the ventilator. The fiberoptic bronchoscope was introduced via the side on the endotracheal tube. The tip of the tube was very close to the jameel. It was pulled back 2 cm at the end of procedure. We were able to get to both sides and remove retained secretions. There were no forest plugs. No endobronchial lesions were seen. Saline irrigation was undertaken. Bronchoscope was removed. Patient remained in the ICU in stable condition. Anesthesia: conscious sedation Surgeon / Physician: Blaine Schulte Estimated blood loss: none Specimens: none sent Condition: stable Disposition: ICU Results - Labs CBC & BMP: 01/04/17 04:21 01/04/17 04:21 Discharge Plan - Discharge Medications No Action Multivitamin (Centrum) [Centrum Tab] 1 tablet PO DAILY Tolterodine Tartrate [Tolterodine LA] 4 mg PO DAILY Meloxicam [Mobic] 1 - 2 tablet PO DAILY PRN PRN Reason: Pain glyBURIDE/METFORMIN 5-500 [Glucovance 5-500] 2 tablet PO DAILY W/BREAKFAST Metoprolol Tartrate Tab [Lopressor Tab] 100 mg PO TID cloNIDine HCl [Clonidine HCl] 0.2 mg PO BID Cholecalciferol (Vitamin D3) [Vitamin D3] 1,000 unit PO DAILY Potassium Chloride 20 meq PO DAILY Hydrocodone/Acetaminophen [Hydrocodon-Acetaminophen 5-325] 1 each PO BEDTIME PRN PRN Reason: Pain Magnesium Chloride [Mag Delay] 64 mg PO DAILY Insulin Glargine [Lantus] 42 unit SUBCUT BEDTIME Aspirin Chew Tab 81 mg PO DAILY tablet Furosemide Tab [Lasix Tab] 40 mg PO DAILY #30 tablet Rivaroxaban [Xarelto] 1 tablet PO PC SUPPER - Follow Up or Referral - Forms/Instructions
[2017-01-04] MEDS: INSULIN LISPRO 100 UNIT/ML SUBCUT SCH ×4 (08:16→21:29)
[2017-01-04] MEDS: MULTIVITAMIN (CENTRUM) TABLET PO SCH (08:30)
[2017-01-04] MEDS: POTASSIUM CHLORIDE 20 MEQ TABLET PO SCH (08:30)
[2017-01-04] MEDS: ASPIRIN 325 MG TABLET PO SCH (08:30)
[2017-01-04] MEDS: PANTOPRAZOLE 40 MG VIAL IV SCH ×2 (08:45→21:25)
[2017-01-04] MEDS: MAGNESIUM CHLORIDE 64 MG TABLET PO SCH (08:47)
[2017-01-04] MEDS: TOLTERODINE LA 4 MG CAPSULE PO SCH (08:48)
--- NOTE | 2017-01-04 11:09 | Hospitalist Progress Note ---
Assessment and Plan (1) Diabetes Status: Chronic Assessment and plan: Glucoses today are 194 and 182. She will be managed with sliding scale regular insulin coverage. Current Visit: No (2) Hypertension Status: Chronic Assessment and plan: Her blood pressure at the present time is 87/64 following administration of clonidine. I will discontinue the clonidine. Current Visit: Yes (3) Syncope Status: Acute Current Visit: Yes (4) DVT (deep venous thrombosis) Status: Chronic Assessment and plan: She has a previous history of DVT. She is presently being treated with Lovenox 80 mg subcutaneous every 12 hours. Current Visit: Yes (5) Acute respiratory failure Status: Acute Assessment and plan: She remains on the ventilator. She is undergoing CPAP trials at the present time. Current Visit: Yes Hospitalist: Subjective Interval history: Ms. Albert was hospitalized here yesterday after experiencing an episode of loss of consciousness. The emergency room she experienced an acute respiratory arrest for which she underwent intubation and was placed on assisted ventilation. A CT scan of the chest demonstrated no evidence of pulmonary emboli. She underwent diuresis at that time. He was seen in consultation by Dr. Schulte of pulmonary who performed a bronchoscopy. Secretions were removed. There was no evidence of a endobronchial lesion. She required intravenous medication for severe hypertension yesterday today her blood pressure is hypotensive. She has been seen in consultation by Dr. Gross of cardiology. She is presently undergoing CPAP trials. Exam - Constitutional Vitals: Period Temp Pulse Resp BP Sys/Rodriguez Pulse Ox Last 24 Hr 97.0 F-101.4 F 73-177 12-34 76-265/50-180 96-100 General appearance: no acute distress, other (Intubated on assisted ventilation. ) - Head Head exam: Present: normal inspection, normocephalic - Eye Eye exam: Present: EOMI Pupils: Present: CHARLY - Neck Neck exam: Present: normal inspection - Respiratory Respiratory exam: Present: clear to auscultation bilaterally - Cardiovascular Cardiovascular exam: Present: regular rate and rhythm - GI/Abdominal GI/Abdominal exam: Present: normal bowel sounds, soft - Extremities Exam Extremities exam: Present: normal inspection - Skin Skin exam: Present: normal color, warm, dry Results - Labs CBC & BMP: 01/04/17 04:21 01/04/17 04:21
--- NOTE | 2017-01-04 12:22 | EKG Report ---
Stationary ECG Study [facility] Test Date: 01/03/2017 1:56:15 PM Pat Name: LIVIA BALBUENA Department: Room: 111 Gender: F Devil Dog: : [id number] Requested by: Kaylee Reyna Order Number: [id number] Reading MD: IVET OCHOA Intervals [place] Rate: 136 P: 999 MD: 0 QRS: 41 QRSD: 86 T: 76 QT: 312 QTc: 392 Interpretive Statements ATRIAL FIBRILLATION WITH RAPID VENTRICULAR RESPONSE INDETERMINATE AXIS MODERATE ST DEPRESSION INTERPRETATION BASED ON A DEFAULT AGE OF 40 YEARS Electronically Signed On 01-06-17 08:37:37 CDT by IVET OCHOA [email or web address]
[2017-01-04] MEDS: SODIUM CHLORIDE 0.9% 1,000 ML IV SCH ×2 (12:46→19:59)
--- NOTE | 2017-01-04 14:31 | XRay Report ---
Exam: XR chest 1V portable Indication: Intubated Comparison study: 01/03/2017 Findings: Endotracheal tube and esophagogastric tube are in similar positions. Cardiac silhouette is enlarged, similar prior. There has been development of linear opacities in the right lung base which are nonspecific. Lungs are otherwise relatively clear. There is no pneumothorax. No definite pleural effusion is identified. Osseous structures are stable. Impression: Stable position of endotracheal and esophagogastric tubes. Development of right basilar opacities likely represent atelectasis and/or pleural fluid. PROCEDURE INTERPRETED AT [facility] DEPARTMENT OF RADIOLOGY Final Report Signed by: Ellis Block
--- NOTE | 2017-01-04 15:41 | Cardiology Progress Note ---
Assessment and Plan (1) Syncope Status: Acute Current Visit: Yes (2) Acute respiratory failure Status: Acute Current Visit: Yes (3) Paroxysmal a-fib Status: Chronic Current Visit: Yes (4) DVT (deep venous thrombosis) Status: Chronic Current Visit: Yes (5) Acute dyspnea Status: Acute Current Visit: No (6) Essential hypertension Status: Chronic Current Visit: No (7) Diabetes Status: Chronic Current Visit: No (8) Obesity Status: Chronic Current Visit: No (9) Hypokalemia Status: Acute Current Visit: No (10) Pulmonary hypertension Status: Chronic Current Visit: No Cardiology - PN: Subj Interval history: Evening was uneventful. She underwent bronchoscopy for retained secretions. No new developments. Blood pressure is on the low side with the sedation. Impression and plan: 1. Syncope with mental status change-etiology is unclear. Possibly related to an acute neurologic event such as stroke in this patient with history of atrial fibrillation. This is being worked up by the primary team. CT scan of the head has been negative. 2. Atrial fibrillation-she is a long-standing history of paroxysmal atrial fibrillation and is chronically anticoagulated for this. She is currently rate controlled. Lovenox is being started as the patient is intubated. 3. Hypertension-this is currently now well controlled. If anything she is mildly hypotensive. Medications are being withheld. 4. "Congestive heart failure"-I do not see evidence of congestive heart failure. She is not volume overloaded on exam, chest x-ray is clear and BNP is less than 400. 5. Pulmonary hypertension-chronic 6. Recent history of right lower extremity DVT. CT scan of the chest today does not show any PE. 7. Respiratory failure-the patient was intubated and will undergo supportive care. CC: Tip Brown Exam (Progress Note) - Constitutional Vitals: Period Temp Pulse Resp BP Sys/Rodriguez Pulse Ox Last 24 Hr 96.3 F-101.4 F 73-129 12-21 76-173/50-97 96-100 Exam: General appearance: normal weight, no acute distress, intubated, not spontaneously arousable during the exam, although will respond to stimulation. - Head Head exam: Present: normocephalic, atraumatic,. Absent: hematoma, laceration - Eye Eye exam: Absent: conjunctival injection, periorbital swelling, scleral icterus , laceration to eyelids Pupils: Present: CHARLY. Absent: constricted, dilated, fixed, irregular, unequal - ENT ENT exam: Present: normal exam, normal external ear exam - Neck Neck exam: Present: normal inspection. Absent: lymphadenopathy, meningismus, tenderness, thyromegaly - Respiratory Respiratory exam: Present: clear to auscultation bilaterally anteriorly, there is normal rise with ventilated breaths. Absent: accessory muscle use, chest wall tenderness - Cardiovascular Cardiovascular exam: Present: regular rate and rhythm. Absent: carotid bruit, gallop, JVD, rubs - GI/Abdominal GI/Abdominal exam: Present: normal bowel sounds. Absent: distended, firm, guarding, hernia, mass, tenderness, rebound, soft - Extremities Exam Extremities exam: Present: normal inspection, normal capillary refill. Absent: calf tenderness, edema - Back Exam Back exam: Unable to assess due to patient being on the ventilator - Neurological Exam Neurological exam: Unable to fully assess due to patient being on the ventilator. She does appear to move all 4 extremities. - Psychiatric Psychiatric exam: Unable to assess due to patient being on the ventilator. - Skin Skin exam: Present: normal color, warm, dry, intact. Absent: cyanosis, diaphoretic, rash, urticaria Result/EKG - Labs CBC & BMP: 01/04/17 04:21 01/04/17 04:21 Lab Results: I have reviewed the past 24 hour labs Labs: Laboratory Results - last 24 hr 01/03/17 01/03/17 01/03/17 16:37 16:37 16:37 WBC 10.5 RBC 5.50 Hgb 14.2 Hct 44.5 MCV 80.9 L MCH 26 L MCHC 31.9 L RDW 15.9 Plt Count 184 D MPV 10.5 Neut % (Auto) 85.5 H Lymph % (Auto) 8.1 L [place] % (Auto) 5.3 Eos % (Auto) 0.0 Baso % (Auto) 0.2 Neut # (Auto) 9.0 H Lymph # (Auto) 0.9 L [place] # (Auto) 0.6 Eos # (Auto) 0.0 Baso # (Auto) 0.0 Immature Gran % 0.9 Nucleated RBC % 0.0 Immature Gran # 0.09 Nucleated RBCs # 0.00 ABG pH ABG pCO2 ABG pO2 ABG HCO3 ABG Total CO2 ABG O2 Saturation ABG Base Excess FiO2 Sodium 141 Potassium 2.7 L Chloride 103 Carbon Dioxide 27 Anion Gap 13.7 BUN 16 Creatinine 1.00 GFR Calculation 83 BUN/Creatinine Ratio 16.00 Glucose 156 H POC Glucose Calculated Osmolality 284.3 Calcium 8.5 Troponin I 0.050 H D 01/03/17 01/03/17 01/03/17 16:56 17:00 21:03 WBC RBC Hgb Hct MCV MCH MCHC RDW Plt Count MPV Neut % (Auto) Lymph % (Auto) [place] % (Auto) Eos % (Auto) Baso % (Auto) Neut # (Auto) Lymph # (Auto) [place] # (Auto) Eos # (Auto) Baso # (Auto) Immature Gran % Nucleated RBC % Immature Gran # Nucleated RBCs # ABG pH 7.467 H ABG pCO2 38.4 ABG pO2 159.0 H ABG HCO3 27.9 H ABG Total CO2 23.9 ABG O2 Saturation 99.2 ABG Base Excess 3.9 H FiO2 60.00 Sodium Potassium Chloride Carbon Dioxide Anion Gap BUN Creatinine GFR Calculation BUN/Creatinine Ratio Glucose POC Glucose 147 H 108 H Calculated Osmolality Calcium Troponin I 01/03/17 01/04/17 01/04/17 23:49 03:15 04:21 WBC 12.8 H RBC 4.60 Hgb 11.7 L D Hct 35.9 MCV 78.0 L MCH 25 L MCHC 32.6 RDW 16.0 Plt Count 199 MPV 10.3 Neut % (Auto) 81.2 H Lymph % (Auto) 9.4 L [place] % (Auto) 8.7 Eos % (Auto) 0.0 Baso % (Auto) 0.2 Neut # (Auto) 10.4 H Lymph # (Auto) 1.2 L [place] # (Auto) 1.1 H Eos # (Auto) 0.0 Baso # (Auto) 0.0 Immature Gran % 0.5 Nucleated RBC % 0.0 Immature Gran # 0.06 Nucleated RBCs # 0.00 ABG pH 7.465 H ABG pCO2 37.5 ABG pO2 184.0 H ABG HCO3 26.4 H ABG Total CO2 27.5 H ABG O2 Saturation 99.0 ABG Base Excess 2.7 H FiO2 60.00 Sodium Potassium Chloride Carbon Dioxide Anion Gap BUN Creatinine GFR Calculation BUN/Creatinine Ratio Glucose POC Glucose 148 H Calculated Osmolality Calcium Troponin I 01/04/17 01/04/17 01/04/17 04:21 05:29 08:14 WBC RBC Hgb Hct MCV MCH MCHC RDW Plt Count MPV Neut % (Auto) Lymph % (Auto) [place] % (Auto) Eos % (Auto) Baso % (Auto) Neut # (Auto) Lymph # (Auto) [place] # (Auto) Eos # (Auto) Baso # (Auto) Immature Gran % Nucleated RBC % Immature Gran # Nucleated RBCs # ABG pH ABG pCO2 ABG pO2 ABG HCO3 ABG Total CO2 ABG O2 Saturation ABG Base Excess FiO2 Sodium 140 Potassium 3.9 Chloride 107 Carbon Dioxide 24 Anion Gap 12.9 BUN 23 H Creatinine 1.60 H GFR Calculation 47 BUN/Creatinine Ratio 14.00 Glucose 190 H POC Glucose 194 H 192 H Calculated Osmolality 287.4 Calcium 8.0 L Troponin I 01/04/17 01/04/17 10:26 12:17 WBC RBC Hgb Hct MCV MCH MCHC RDW Plt Count MPV Neut % (Auto) Lymph % (Auto) [place] % (Auto) Eos % (Auto) Baso % (Auto) Neut # (Auto) Lymph # (Auto) [place] # (Auto) Eos # (Auto) Baso # (Auto) Immature Gran % Nucleated RBC % Immature Gran # Nucleated RBCs # ABG pH ABG pCO2 ABG pO2 ABG HCO3 ABG Total CO2 ABG O2 Saturation ABG Base Excess FiO2 Sodium Potassium Chloride Carbon Dioxide Anion Gap BUN Creatinine GFR Calculation BUN/Creatinine Ratio Glucose POC Glucose 182 H 183 H Calculated Osmolality Calcium Troponin I - Diagnostic Findings Procedure: Chest x-ray: report reviewed by me
[2017-01-04] MEDS: PROPOFOL 1,000 MG/100 ML BOTTLE IV SCH (16:31)
[2017-01-04] MEDS ORDERED: LEVOFLOXACIN INJ 250 MG in PREMIX 1 EACH IV SCH (17:00)
[2017-01-04] MEDS: MELOXICAM 7.5 MG TABLET PO PRN (20:00)
[2017-01-04] MEDS: ATORVASTATIN 40 MG TABLET PO SCH (21:25)
[2017-01-05] MEDS: ENOXAPARIN 80 MG/0.8 ML SYRINGE SUBCUT SCH ×2 (02:10→12:50)
[2017-01-05] MEDS: CEFEPIME 1,000 MG in SODIUM CHLORIDE 0.9% 100 ML IV SCH ×3 (02:11→18:06)
[2017-01-05] MEDS: SODIUM CHLORIDE 0.9% 1,000 ML IV SCH ×3 (02:12→17:45)
[2017-01-05 03:38] LABS: ABG Base Excess -0.5 MMOL/L (-2.5-2.5); ABG HCO3 23.5 MMOL/L (20-26); ABG Oxygen Saturation 98.2 % (95-100); ABG PCO2 36.3 MM HG (35-48); ABG PH 7.429 (7.35-7.45); ABG PO2 116.1 MM HG (80-95); ABG TCO2 24.6 MMOL/L (23-27); Allen Test Positive; Pt O2 Delivery Device Ventilator
[2017-01-05] MEDS: PROPOFOL 1,000 MG/100 ML BOTTLE IV SCH ×3 (04:19→17:41)
[2017-01-05] MEDS: hydrALAZINE 20 MG/1 ML VIAL IV PRN ×2 (06:16→12:55)
[2017-01-05 06:32] LABS: Basophils % 0.2 % (0.0-0.8); Eosinophils # 0.1 10*3/uL (0.0-0.87); Eosinophils % 1.3 % (0.00-10.9); Hematocrit 37.8 VOL% (35.7-47.0); Hemoglobin 12.3 GM/DL (12.0-16.0); Immature Granulocytes % 0.5 %; Immature Granulocytes Absolute 0.05 #; Lymphocytes # 2.4 10*3/uL (1.4-4.0); Lymphocytes % 21.9 % (21.3-54.2); Mean Corpuscular HGB Conc 32.5 GM/DL (32-36); Mean Corpuscular Hemoglobin 26 PG (27-34); Mean Corpuscular Volume 80.4 FL (87-102); Mean Platelet Volume 10.1 FL (9.6-12.0); Monocytes % 9.3 % (1.7-12.7); Neutrophils # 7.2 10*3/uL (1.4-7.4); Neutrophils % 66.8 % (38.7-73.9); Platelet Count 183 T/CUMM (130-400); Red Cell Distribution Width 16.2 % (9.3-17.3); White Blood Count 10.7 T/CUMM (4-12)
[2017-01-05] MEDS: DEXTROSE 50% 25 GM/50 ML VIAL IV PRN ×2 (06:50→07:05)
[2017-01-05 07:09] LABS: Calcium 8.2 MG/DL (8.5-10.1); Potassium 4.1 MMOL/L (3.5-5.1)
--- NOTE | 2017-01-05 07:14 | Pulmonology Progress Note ---
Pulmonary - PN: Subj Interval history: This 76-year-old black female had a syncopal episode. The etiology of it is not clear. May have been an arrhythmia or seizure. Her potassium was 2.6 and has been corrected. She had respiratory distress in the emergency room and was intubated. She has been followed by cardiology with a diagnosis of congestive heart failure which is apparently diastolic and is well controlled at the current time. She has chronic atrial fibrillation and has cardiomegaly on her x -ray. Her BNP is not very elevated. This morning she is more alert and ABGs look good. X-rays show some atelectasis in the right middle lobe likely due to mucous plugging. I will bronchoscope her this morning. Will change to IMV and start weaning. At some point will need neurology consult and EEG. 01/05/2017 patient did 4 hours of CPAP yesterday. We bronchoscoped her and removed some thick secretions. Cultures are not out yet but are showing some gram-positive cocci. She also has a urinary tract infection with gram-negative rods. She is on broad coverage with Levaquin and cefepime. This morning she had an episode of decreased level of consciousness associated with a shoe over. Looks like she may have been having a chill. We will see if her temperature goes up. The decreased level of consciousness is a bit unusual with that. This also does not look like a typical seizure. We need neurology to see her. I am a little concerned about extubating her until the spell stopped. Will continue with CPAP and check mechanics so that we would be ready to extubate if we could. Exam (Progress Note) - Constitutional Vitals: Period Temp Pulse Resp BP Sys/Rodriguez Pulse Ox Last 24 Hr 96.3 F-98.8 F 77-102 12-21 86-144/58-97 96-100 Exam: Patient is responsive. Atrial fibrillation with heart rate in the mid 80s. Vital signs otherwise normal. Pupils react to light. Orotracheal tube in place. Neck is supple. No bruits. Chest reveals few rhonchi on the right lung otherwise clear. Heart irregular without murmur. Abdomen soft nontender no masses. Extremities no clubbing cyanosis edema. Calves nontender. Little change in exam from yesterday except during her shivering episode. Results - Labs CBC & BMP: 01/05/17 06:21 01/05/17 06:21 Lab Results: I have reviewed the past 24 hour labs - Diagnostic Findings Procedure: Chest x-ray: image reviewed by me (Minimal right middle lobe atelectasis. Slightly better than yesterday's film.) Assessment and Plan (1) Acute respiratory failure Status: Acute Assessment and plan: ABGs look okay on 100% oxygen. Will reduce FiO2 to 60%. She needs evaluation of her cardiac status and syncope because before trying to wean. I am concerned that she may have had a seizure. 01/04/2017 ABGs look good. Reduce FiO2. Has some atelectasis right middle lobe which will require bronchoscopy. 01/05/2017 ABGs look good. Tolerating CPAP. Probably could be extubated if she has no further episodes of decreased level of consciousness. Current Visit: Yes (2) Congestive heart failure Problem details: EF 55% Status: Acute Assessment and plan: Has diastolic dysfunction. Atrial fibrillation. Followed by cardiology. 01/04/2017 carries a diagnosis of congestive heart failure for which she is followed by cardiology. Apparently he has normal LV ejection fraction. Do not think she is in forest failure at present. 01/05/2017 this is well controlled. Current Visit: No (3) Deep vein thrombosis (DVT) of femoral vein of left lower extremity Status: Acute Assessment and plan: This was noted during a recent hospitalization a couple months back and she is on anticoagulants. She had a CT PE protocol done with no signs of pulmonary emboli. 01/04/2017 on anticoagulants. 01/05/2017 on anticoagulants. No bleeding. Current Visit: No (4) Syncope Status: Acute Assessment and plan: This may be due to arrhythmia, postural hypotension, hypoglycemia, or possibly a seizure. 01/04/2017 etiology not clear. Will need neurologic evaluation. She does have some pulmonary hypertension in addition to an arrhythmia. Family thought her glucose might have been low as well. We do not have a measured one at that time. 01/05/2017 etiology not clear. She had an episode while we were observing. Pulse 1-140 systolic blood pressure to 200. She had what appeared to be a chill as well as decreased level of consciousness. Not sure whether this represents a chill associated with fever or whether it is a form of seizure. We will see what her temperature does. We will get an EEG and neurology consult when available. Current Visit: Yes (5) Pneumonia Status: Acute Assessment and plan: She had fever after readmission to the ICU. Likely has pneumonia. Now has developed some right middle lobe atelectasis. We have started antibiotics. Will bronchoscope and culture. 01/05/2017 has a right middle lobe pneumonia it appears. Current Visit: Yes (6) Urinary tract infection Status: Acute Assessment and plan: Growing gram-negative rods. Currently on cefepime and Levaquin. If she was having fever and chills or sepsis from this, this could explain her syncope. Current Visit: Yes
[2017-01-05] MEDS: INSULIN LISPRO 100 UNIT/ML SUBCUT SCH ×4 (08:17→23:16)
[2017-01-05] MEDS: MAGNESIUM CHLORIDE 64 MG TABLET PO SCH (08:36)
[2017-01-05] MEDS: ASPIRIN 325 MG TABLET PO SCH (08:36)
[2017-01-05] MEDS: MULTIVITAMIN (CENTRUM) TABLET PO SCH (08:36)
[2017-01-05] MEDS: POTASSIUM CHLORIDE 20 MEQ TABLET PO SCH (08:36)
[2017-01-05] MEDS: PANTOPRAZOLE 40 MG VIAL IV SCH ×2 (08:37→20:27)
[2017-01-05] MEDS: TOLTERODINE LA 4 MG CAPSULE PO SCH (10:31)
--- NOTE | 2017-01-05 11:51 | Hospitalist Progress Note ---
Assessment and Plan (1) Diabetes Status: Chronic Assessment and plan: Glucose today is 128. She will be managed with sliding scale regular insulin coverage. Current Visit: No (2) Hypertension Status: Chronic Assessment and plan: Her blood pressure today is 147/77. Current Visit: Yes (3) Syncope Status: Acute Current Visit: Yes (4) DVT (deep venous thrombosis) Status: Chronic Assessment and plan: She has a previous history of DVT. She is presently being treated with Lovenox 80 mg subcutaneous every 12 hours. Current Visit: Yes (5) Acute respiratory failure Status: Acute Assessment and plan: She remains on the ventilator. She is undergoing CPAP trials at the present time. She is being followed by Dr. Schulte of pulmonary. Current Visit: Yes Hospitalist: Subjective Interval history: Ms. Albert was hospitalized here 2 days ago after experiencing episode of loss of consciousness. She experienced an acute respiratory arrest for which she underwent intubation and was placed on assisted ventilation. A CT scan of the chest demonstrated no evidence of pulmonary emboli. She underwent diuresis at that time. She was seen in consultation by Dr. Schulte of pulmonary who performed her bronchoscopy demonstrating evidence of purulent secretions compatible with pneumonia. She has been seen in consultation by Dr. Gross of cardiology. She is presently undergoing CPAP trials. She experienced an episode of agitation earlier today. It was not clear to the staff whether it represented a seizure or panic attack. She will be seen tomorrow in consultation by neurology. Exam - Constitutional Vitals: Period Temp Pulse Resp BP Sys/Rodriguez Pulse Ox Last 24 Hr 96.5 F-98.8 F 77-147 12-31 89-203/58-124 93-100 General appearance: other (Intubated on assisted ventilation.) - Head Head exam: Present: normal inspection, normocephalic - Eye Eye exam: Present: EOMI Pupils: Present: CHARLY - Neck Neck exam: Present: normal inspection - Respiratory Respiratory exam: Present: clear to auscultation bilaterally - Cardiovascular Cardiovascular exam: Present: regular rate and rhythm - GI/Abdominal GI/Abdominal exam: Present: normal bowel sounds, soft - Extremities Exam Extremities exam: Present: normal inspection - Skin Skin exam: Present: normal color, warm, dry Results - Labs CBC & BMP: 01/05/17 06:21 01/05/17 06:21
[2017-01-05] MEDS: METOPROLOL TARTRATE 100 MG TABLET PO SCH ×2 (14:38→20:27)
[2017-01-05] MEDS: cloNIDine 0.1 MG TABLET PO SCH ×2 (14:40→20:31)
--- NOTE | 2017-01-05 15:32 | XRay Report ---
Exam: XR chest 1V portable Indication: intubated Comparison study: 01/04/2017 Findings: Endotracheal tube and esophagogastric tube are in similar positions. Lungs are otherwise clear. There is no pneumothorax. Osseous structures are stable. Impression: Slight decrease in right basilar atelectasis. Stable position of endotracheal and esophagogastric tubes. PROCEDURE INTERPRETED AT [facility] DEPARTMENT OF RADIOLOGY Final Report Signed by: Ellis Block
[2017-01-05] MEDS: LEVOFLOXACIN INJ 500 MG in PREMIX 1 EACH IV SCH (17:07)
--- NOTE | 2017-01-05 17:24 | Cardiology Progress Note ---
Assessment and Plan (1) Syncope Status: Acute Current Visit: Yes (2) Acute respiratory failure Status: Acute Current Visit: Yes (3) Paroxysmal a-fib Status: Chronic Current Visit: Yes (4) DVT (deep venous thrombosis) Status: Chronic Current Visit: Yes (5) Acute dyspnea Status: Acute Current Visit: No (6) Essential hypertension Status: Chronic Current Visit: No (7) Diabetes Status: Chronic Current Visit: No (8) Obesity Status: Chronic Current Visit: No (9) Hypokalemia Status: Acute Current Visit: No (10) Pulmonary hypertension Status: Chronic Current Visit: No Cardiology - PN: Subj Interval history: The patient was admitted with some kind of loss of consciousness, and then a hypertension and tachycardia which eventually resulted in intubation. She underwent a bronchoscopy that was compatible with pneumonia. She initially had extreme hypertension in the emergency room, and this was mild hypotension once she was admitted and on the ventilator. Nursing reports another episode of a spike in her blood pressure and heart rate, the patient was intubated and sedated but was alert and interactive. They believe she may have had a panic attack at that point (something to do with her being bathed and attended to by male nurses) but it is unclear what really happened. Her hemodynamics have now normalized. Impression and plan: 1. Syncope with mental status change-etiology is unclear. Possibly related to an acute neurologic event such as stroke in this patient with history of atrial fibrillation. CT scan of the head was normal. This is being worked up by the primary team. Neurology is going to be consulted 2. Atrial fibrillation-she is a long-standing history of paroxysmal atrial fibrillation and is chronically anticoagulated for this. She is currently rate controlled. Lovenox is being started as the patient is intubated. 3. Hypertension-this is currently now well controlled. We will continue to follow and adjust medications as needed. 4. "Congestive heart failure"-I do not see evidence of congestive heart failure. She is not volume overloaded on exam, chest x-ray/CT are clear and BNP is less than 400. 5. Pulmonary hypertension-chronic 6. Recent history of right lower extremity DVT. CT scan of the chest today does not show any PE. 7. Respiratory failure-the patient was intubated and will undergo supportive care. CC: Tip Brown Exam (Progress Note) - Constitutional Vitals: Period Temp Pulse Resp BP Sys/Rodriguez Pulse Ox Last 24 Hr 96.5 F-100.6 F 76-147 12-31 86-203/54-124 93-100 Exam: General appearance: normal weight, no acute distress, intubated, not spontaneously arousable during the exam, although will respond to stimulation. - Head Head exam: Present: normocephalic, atraumatic,. Absent: hematoma, laceration - Eye Eye exam: Absent: conjunctival injection, periorbital swelling, scleral icterus , laceration to eyelids Pupils: Present: CHARLY. Absent: constricted, dilated, fixed, irregular, unequal - ENT ENT exam: Present: normal exam, normal external ear exam - Neck Neck exam: Present: normal inspection. Absent: lymphadenopathy, meningismus, tenderness, thyromegaly - Respiratory Respiratory exam: Present: clear to auscultation bilaterally anteriorly, there is normal rise with ventilated breaths. Absent: accessory muscle use, chest wall tenderness - Cardiovascular Cardiovascular exam: Present: regular rate and rhythm. Absent: carotid bruit, gallop, JVD, rubs - GI/Abdominal GI/Abdominal exam: Present: normal bowel sounds. Absent: distended, firm, guarding, hernia, mass, tenderness, rebound, soft - Extremities Exam Extremities exam: Present: normal inspection, normal capillary refill. Absent: calf tenderness, edema - Back Exam Back exam: Unable to assess due to patient being on the ventilator - Neurological Exam Neurological exam: Unable to fully assess due to patient being on the ventilator. She does appear to move all 4 extremities. - Psychiatric Psychiatric exam: Unable to assess due to patient being on the ventilator. - Skin Skin exam: Present: normal color, warm, dry, intact. Absent: cyanosis, diaphoretic, rash, urticaria Result/EKG - Labs CBC & BMP: 01/05/17 06:21 01/05/17 06:21 Lab Results: I have reviewed the past 24 hour labs Labs: Laboratory Results - last 24 hr 01/04/17 01/04/17 01/05/17 18:22 21:10 03:20 WBC RBC Hgb Hct MCV MCH MCHC RDW Plt Count MPV Neut % (Auto) Lymph % (Auto) [place] % (Auto) Eos % (Auto) Baso % (Auto) Neut # (Auto) Lymph # (Auto) [place] # (Auto) Eos # (Auto) Baso # (Auto) Immature Gran % Nucleated RBC % Immature Gran # Nucleated RBCs # ABG pH 7.429 ABG pCO2 36.3 ABG pO2 116.1 H ABG HCO3 23.5 ABG Total CO2 24.6 ABG O2 Saturation 98.2 ABG Base Excess -0.5 FiO2 40.00 Sodium Potassium Chloride Carbon Dioxide Anion Gap BUN Creatinine GFR Calculation BUN/Creatinine Ratio Glucose POC Glucose 127 H 124 H Calculated Osmolality Calcium 01/05/17 01/05/17 01/05/17 06:21 06:21 06:47 WBC 10.7 RBC 4.70 Hgb 12.3 Hct 37.8 MCV 80.4 L MCH 26 L MCHC 32.5 RDW 16.2 Plt Count 183 MPV 10.1 Neut % (Auto) 66.8 Lymph % (Auto) 21.9 [place] % (Auto) 9.3 Eos % (Auto) 1.3 Baso % (Auto) 0.2 Neut # (Auto) 7.2 Lymph # (Auto) 2.4 [place] # (Auto) 1.0 H Eos # (Auto) 0.1 Baso # (Auto) 0.0 Immature Gran % 0.5 Nucleated RBC % 0.0 Immature Gran # 0.05 Nucleated RBCs # 0.00 ABG pH ABG pCO2 ABG pO2 ABG HCO3 ABG Total CO2 ABG O2 Saturation ABG Base Excess FiO2 Sodium 143 Potassium 4.1 Chloride 111 H Carbon Dioxide 22 Anion Gap 14.1 BUN 25 H Creatinine 1.00 GFR Calculation 84 BUN/Creatinine Ratio 25.00 H Glucose 83 POC Glucose 76 Calculated Osmolality 287.0 Calcium 8.2 L 01/05/17 01/05/17 07:29 11:38 WBC RBC Hgb Hct MCV MCH MCHC RDW Plt Count MPV Neut % (Auto) Lymph % (Auto) [place] % (Auto) Eos % (Auto) Baso % (Auto) Neut # (Auto) Lymph # (Auto) [place] # (Auto) Eos # (Auto) Baso # (Auto) Immature Gran % Nucleated RBC % Immature Gran # Nucleated RBCs # ABG pH ABG pCO2 ABG pO2 ABG HCO3 ABG Total CO2 ABG O2 Saturation ABG Base Excess FiO2 Sodium Potassium Chloride Carbon Dioxide Anion Gap BUN Creatinine GFR Calculation BUN/Creatinine Ratio Glucose POC Glucose 128 H 111 H Calculated Osmolality Calcium
[2017-01-05] MEDS: ATORVASTATIN 40 MG TABLET PO SCH (20:26)
[2017-01-05] MEDS: MELOXICAM 7.5 MG TABLET PO PRN (23:16)
[2017-01-06] MEDS: ENOXAPARIN 80 MG/0.8 ML SYRINGE SUBCUT SCH ×2 (02:47→13:00)
[2017-01-06] MEDS: CEFEPIME 1,000 MG in SODIUM CHLORIDE 0.9% 100 ML IV SCH ×3 (02:47→18:00)
[2017-01-06 03:16] LABS: ABG Base Excess -2.6 MMOL/L (-2.5-2.5); ABG HCO3 22.2 MMOL/L (20-26); ABG Oxygen Saturation 98.6 % (95-100); ABG PCO2 38.1 MM HG (35-48); ABG PH 7.374 (7.35-7.45); ABG TCO2 19.8 MMOL/L (23-27); Allen Test Positive; Pt O2 Delivery Device Ventilator
[2017-01-06] MEDS: SODIUM CHLORIDE 0.9% 1,000 ML IV SCH ×3 (03:23→20:04)
[2017-01-06 05:01] LABS: Basophils % 0.3 % (0.0-0.8); Eosinophils # 0.1 10*3/uL (0.0-0.87); Eosinophils % 1.3 % (0.00-10.9); Hematocrit 36.1 VOL% (35.7-47.0); Hemoglobin 11.3 GM/DL (12.0-16.0); Immature Granulocytes % 0.7 %; Immature Granulocytes Absolute 0.05 #; Lymphocytes # 1.6 10*3/uL (1.4-4.0); Lymphocytes % 20.9 % (21.3-54.2); Mean Corpuscular HGB Conc 31.3 GM/DL (32-36); Mean Corpuscular Hemoglobin 26 PG (27-34); Mean Corpuscular Volume 81.5 FL (87-102); Mean Platelet Volume 10.3 FL (9.6-12.0); Monocytes # 1.1 10*3/uL (0.11-0.8); Monocytes % 14.2 % (1.7-12.7); Neutrophils # 4.8 10*3/uL (1.4-7.4); Neutrophils % 62.6 % (38.7-73.9); Platelet Count 203 T/CUMM (130-400); Red Blood Count 4.43 MC/CUMM (3.8-5.5); Red Cell Distribution Width 16.5 % (9.3-17.3); White Blood Count 7.6 T/CUMM (4-12)
[2017-01-06 05:20] LABS: Calcium 7.8 MG/DL (8.5-10.1); Osmolality,Calculated 290.1 MOS/KG (273-304); Potassium 4.3 MMOL/L (3.5-5.1)
[2017-01-06] MEDS: INSULIN LISPRO 100 UNIT/ML SUBCUT SCH ×4 (06:02→20:12)
--- NOTE | 2017-01-06 06:55 | Pulmonology Progress Note ---
Pulmonary - PN: Subj Interval history: This 76-year-old black female had a syncopal episode. The etiology of it is not clear. May have been an arrhythmia or seizure. Her potassium was 2.6 and has been corrected. She had respiratory distress in the emergency room and was intubated. She has been followed by cardiology with a diagnosis of congestive heart failure which is apparently diastolic and is well controlled at the current time. She has chronic atrial fibrillation and has cardiomegaly on her x -ray. Her BNP is not very elevated. This morning she is more alert and ABGs look good. X-rays show some atelectasis in the right middle lobe likely due to mucous plugging. I will bronchoscope her this morning. Will change to IMV and start weaning. At some point will need neurology consult and EEG. 01/05/2017 patient did 4 hours of CPAP yesterday. We bronchoscoped her and removed some thick secretions. Cultures are not out yet but are showing some gram-positive cocci. She also has a urinary tract infection with gram-negative rods. She is on broad coverage with Levaquin and cefepime. This morning she had an episode of decreased level of consciousness associated with a shoe over. Looks like she may have been having a chill. We will see if her temperature goes up. The decreased level of consciousness is a bit unusual with that. This also does not look like a typical seizure. We need neurology to see her. I am a little concerned about extubating her until the spell stopped. Will continue with CPAP and check mechanics so that we would be ready to extubate if we could. 01/06/2017 patient did prolonged CPAP yesterday. She is alert and calm this morning should be able to get her extubated. She has grown out E. coli from her urine. She had fever during the day yesterday. I suspect what we saw yesterday morning was a chill. Will continue with antibiotics for the urinary tract infection. She also had some atelectasis in the right middle lobe and likely has some mild pneumonitis as well. Neurology is consulted to see if they think there is seizure activity. Exam (Progress Note) - Constitutional Vitals: Period Temp Pulse Resp BP Sys/Rodriguez Pulse Ox Last 24 Hr 96.9 F-100.6 F 71-147 12-31 86-203/54-105 93-100 Exam: Patient is responsive. She is alert and calm. Atrial fibrillation with heart rate in the mid 80s. Vital signs otherwise normal. Pupils react to light. Orotracheal tube in place. Neck is supple. No bruits. Chest reveals few rhonchi on the right lung otherwise clear. Heart irregular without murmur. Abdomen soft nontender no masses. Extremities no clubbing cyanosis edema. Calves nontender. Results - Labs CBC & BMP: 01/06/17 04:35 01/06/17 04:35 Lab Results: I have reviewed the past 24 hour labs - Diagnostic Findings Procedure: Chest x-ray: image reviewed by me (X-ray improved. Right middle lobe atelectasis pretty much resolved. ET tube in good position.) Assessment and Plan (1) Acute respiratory failure Status: Acute Assessment and plan: ABGs look okay on 100% oxygen. Will reduce FiO2 to 60%. She needs evaluation of her cardiac status and syncope because before trying to wean. I am concerned that she may have had a seizure. 01/04/2017 ABGs look good. Reduce FiO2. Has some atelectasis right middle lobe which will require bronchoscopy. 01/05/2017 ABGs look good. Tolerating CPAP. Probably could be extubated if she has no further episodes of decreased level of consciousness. 01/06/2017 ABGs improved. Will start CPAP, check mechanics and ABGs, and hope to extubate this morning. Current Visit: Yes (2) Congestive heart failure Problem details: EF 55% Status: Acute Assessment and plan: Has diastolic dysfunction. Atrial fibrillation. Followed by cardiology. 01/04/2017 carries a diagnosis of congestive heart failure for which she is followed by cardiology. Apparently he has normal LV ejection fraction. Do not think she is in forest failure at present. 01/05/2017 this is well controlled. 01/06/2017 no forest failure at this point. Normal ejection fraction. Cardiology following Current Visit: No (3) Deep vein thrombosis (DVT) of femoral vein of left lower extremity Status: Acute Assessment and plan: This was noted during a recent hospitalization a couple months back and she is on anticoagulants. She had a CT PE protocol done with no signs of pulmonary emboli. 01/04/2017 on anticoagulants. 01/05/2017 on anticoagulants. No bleeding. Current Visit: No (4) Syncope Status: Acute Assessment and plan: This may be due to arrhythmia, postural hypotension, hypoglycemia, or possibly a seizure. 01/04/2017 etiology not clear. Will need neurologic evaluation. She does have some pulmonary hypertension in addition to an arrhythmia. Family thought her glucose might have been low as well. We do not have a measured one at that time. 01/05/2017 etiology not clear. She had an episode while we were observing. Pulse went to 140, systolic blood pressure to 200. She had what appeared to be a chill as well as decreased level of consciousness. Not sure whether this represents a chill associated with fever or whether it is a form of seizure. We will see what her temperature does. We will get an EEG and neurology consult when available. 01/06/2017 we still need a neurological evaluation. However the episode that I observed yesterday appears to have been a chill. She did subsequently have fever. No further episodes. Current Visit: Yes (5) Pneumonia Status: Acute Assessment and plan: She had fever after readmission to the ICU. Likely has pneumonia. Now has developed some right middle lobe atelectasis. We have started antibiotics. Will bronchoscope and culture. 01/05/2017 has a right middle lobe pneumonia it appears. 01/06/2017 apparent right middle lobe pneumonia. Much improved. Continue cefepime and Levaquin. Bronchial wash cultures are negative. Current Visit: Yes (6) Urinary tract infection Status: Acute Assessment and plan: Growing gram-negative rods. Currently on cefepime and Levaquin. If she was having fever and chills or sepsis from this, this could explain her syncope. 01/06/2017 E. coli has grown from the urine. It is sensitive to both cefepime and Levaquin. Current Visit: Yes
--- NOTE | 2017-01-06 07:22 | XRay Report ---
History: Patient on ventilator Date: 01/06/2017 Study: Chest x-ray AP portable Comparison exam: 01/05/2017 The endotracheal and nasogastric tubes remain in satisfactory position. There is stable cardiomegaly. The mediastinal contours are unchanged. The pulmonary vasculature is not engorged. There is mild strandy and hazy bibasilar atelectasis. There is slightly improved aeration in the right lung base. There is no new or worsening infiltrate. There is no gross pleural effusion. Osseous structures are unchanged. Impression: Continued bibasilar atelectasis with slightly improved aeration in the right lung base. PROCEDURE INTERPRETED AT [facility] DEPARTMENT OF RADIOLOGY Final Report Signed by: Dr. Grecia Cordero
[2017-01-06] MEDS: MAGNESIUM CHLORIDE 64 MG TABLET PO SCH (08:55)
[2017-01-06] MEDS: METOPROLOL TARTRATE 100 MG TABLET PO SCH ×3 (08:55→20:11)
[2017-01-06] MEDS: POTASSIUM CHLORIDE 20 MEQ TABLET PO SCH (08:55)
[2017-01-06] MEDS: PANTOPRAZOLE 40 MG VIAL IV SCH ×2 (08:55→20:12)
[2017-01-06] MEDS: cloNIDine 0.1 MG TABLET PO SCH (08:55)
[2017-01-06] MEDS: ASPIRIN 325 MG TABLET PO SCH (08:55)
[2017-01-06] MEDS: MULTIVITAMIN (CENTRUM) TABLET PO SCH (08:55)
[2017-01-06] MEDS: TOLTERODINE LA 4 MG CAPSULE PO SCH (09:00)
--- NOTE | 2017-01-06 09:03 | Cardiology Progress Note ---
<Jayda Craig E - Last Filed: 01/06/17 08:45> Assessment and Plan - Time spent with patient Time spent with patient: Greater than 30 minutes (1) Diabetes Status: Chronic Assessment and plan: SEE PLAN OF CARE LISTED BELOW Current Visit: Yes (2) Pulmonary hypertension Status: Chronic Assessment and plan: SEE PLAN OF CARE LISTED BELOW Current Visit: No (3) Altered mental status Status: Acute Assessment and plan: SEE PLAN OF CARE LISTED BELOW Current Visit: Yes (4) Hypertension Status: Chronic Assessment and plan: SEE PLAN OF CARE LISTED BELOW Current Visit: Yes (5) Syncope Status: Acute Assessment and plan: SEE PLAN OF CARE LISTED BELOW Current Visit: Yes (6) Acute respiratory failure Status: Acute Assessment and plan: SEE PLAN OF CARE LISTED BELOW Current Visit: Yes (7) DVT (deep venous thrombosis) Status: Chronic Assessment and plan: SEE PLAN OF CARE LISTED BELOW Current Visit: Yes (8) Paroxysmal a-fib Status: Chronic Assessment and plan: SEE PLAN OF CARE LISTED BELOW Current Visit: Yes (9) Pneumonia Status: Acute Assessment and plan: SEE PLAN OF CARE LISTED BELOW Current Visit: Yes Cardiology - PN: Subj Interval history: 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 Albert was brought to the emergency department at [facility] January 03, 2017 after waking from her sleep around 0 100 when she developed symptoms of dizziness and gait instability. She became unresponsive and required intubation. CT of head negative for an acute event. Neurology has been consulted. She has undergone bronchoscopy and diagnosed with pneumonia. Cardiology was consulted for atrial fibrillation with rapid ventricular response, hypertension and possible CHF. History of known atrial fibrillation on chronic anticoagulation. Most recent cardiac catheterization October 2016: no significant obstructive coronary artery disease noted, EF 50% . No history of significant valvular abnormality. She developed a post-cath hematoma and nonocclusive right common femoral vein in October 2016. She was changed from Xarelto to Eliquis for 1 month and then put back on the Xarelto. CT chest did not reveal PE nor volume overload. Carotid Dopplers revealed no evidence of significant stenosis bilaterally. JANUARY 06, 2017: She remains on Cardizem 5 mg/h IV and her heart rate has been controlled. She remains in atrial fibrillation. Over the weekend, they have attempted to do weaning trials with her ventilator but have been unsuccessful so far (possibly expressing a panic attack during some of the weaning trials.) Labs have been stable. She is tolerating aspirin, Lovenox (therapeutic dose) as her NOAC has been held, beta silvia. Today, will transition from IV diltiazem to diltiazem through NG tube. We will stop her clonidine in favor of higher dose of her rate controlling agents today. I do not see a recent TSH level and I will check during this hospital stay. ASSESSMENT/PLAN: 1. SYNCOPE WITH MENTAL STATUS CHANGE -etiology unclear. Possibly related to an acute neurologic event such as stroke in this patient with a history of atrial fibrillation. Neurology has been consulted. CT head does not reveal an acute event. 2. ATRIAL FIBRILLATION WITH RVR -long-standing history of PAF and is chronically anticoagulated for this. She is currently rate controlled. Will eventually restart anticoagulation but is currently being treated with Lovenox, therapeutic dosing. We will transition from IV diltiazem to CCB via NGT. Stopping Clonidine in favor of higher dose rate controlling agent. 3. HYPERTENSION - adequately controlled. Adjust meds accordingly during hospital stay. 4. CHF -originally, cardiology was consulted for possible CHF. Clinically, she is not volume overloaded, since chest x-ray is clear, BNP has been less than 400. Do not believe she is in congestive heart failure. 5. PULMONARY HYPERTENSION - chronic 6. RESPIRATORY FAILURE - hopefully, weaning trials will resume again soon 7. CAP - being treated accordingly. 8. DYSLIPIDEMIA - LDL 70. Continue lipid-lowering agent. 9. DIABETES - continue current plan of care. Exam (Progress Note) - Constitutional Vitals: Period Temp Pulse Resp BP Sys/Rodriguez Pulse Ox Last 24 Hr 96.9 F-100.6 F 71-112 12-20 86-155/54-96 96-100 Exam: General: [Intubated, sedated with propofol. Appears comfortable. ] HEENT: [Nnormocephalic, NG tube through right nares. Mucous membranes moist. No jaundice noted. Conjunctiva moist and clear, sclerae anicteric] Neck: No obvious JVD/HJR, no thyromegaly or lymphadenopathy noted. No carotid bruit appreciated Cardiac: [Regular rate and rhythm.] [No murmur rub or gallop.] Lungs: [Course sounds through out. Symmetrical chest wall movements. No tracheal deviation noted. Musculoskeletal: No fluid collection. Decreased range of motion is noted. Extremities: No clubbing, cyanosis noted. Upper extremity pulses 2+. Lower extremity pulses 2+. Capillary refill less than 3 seconds. Skin: No unusual lesions or rashes. No skin breakdown appreciated. Neuro: No essential tremor is appreciated. Result/EKG - Labs CBC & BMP: 01/06/17 04:35 01/06/17 04:35 Lab Results: I have reviewed the past 24 hour labs Labs: Laboratory Results - last 24 hr 01/05/17 01/05/17 01/05/17 11:38 16:33 21:11 WBC RBC Hgb Hct MCV MCH MCHC RDW Plt Count MPV Neut % (Auto) Lymph % (Auto) [place] % (Auto) Eos % (Auto) Baso % (Auto) Neut # (Auto) Lymph # (Auto) [place] # (Auto) Eos # (Auto) Baso # (Auto) Immature Gran % Nucleated RBC % Immature Gran # Nucleated RBCs # ABG pH ABG pCO2 ABG pO2 ABG HCO3 ABG Total CO2 ABG O2 Saturation ABG Base Excess FiO2 Sodium Potassium Chloride Carbon Dioxide Anion Gap BUN Creatinine GFR Calculation BUN/Creatinine Ratio Glucose POC Glucose 111 H 105 117 H Calculated Osmolality Calcium 01/06/17 01/06/17 01/06/17 03:08 04:35 04:35 WBC 7.6 RBC 4.43 Hgb 11.3 L Hct 36.1 MCV 81.5 L MCH 26 L MCHC 31.3 L RDW 16.5 Plt Count 203 MPV 10.3 Neut % (Auto) 62.6 Lymph % (Auto) 20.9 L [place] % (Auto) 14.2 H Eos % (Auto) 1.3 Baso % (Auto) 0.3 Neut # (Auto) 4.8 Lymph # (Auto) 1.6 [place] # (Auto) 1.1 H Eos # (Auto) 0.1 Baso # (Auto) 0.0 Immature Gran % 0.7 Nucleated RBC % 0.0 Immature Gran # 0.05 Nucleated RBCs # 0.00 ABG pH 7.374 ABG pCO2 38.1 ABG pO2 121.0 H ABG HCO3 22.2 ABG Total CO2 19.8 L ABG O2 Saturation 98.6 ABG Base Excess -2.6 L FiO2 40.00 Sodium 142 Potassium 4.3 Chloride 112 H Carbon Dioxide 21 Anion Gap 13.3 BUN 26 H Creatinine 1.00 GFR Calculation 84 BUN/Creatinine Ratio 26.00 H Glucose 158 H POC Glucose Calculated Osmolality 290.1 Calcium 7.8 L 01/06/17 05:29 WBC RBC Hgb Hct MCV MCH MCHC RDW Plt Count MPV Neut % (Auto) Lymph % (Auto) [place] % (Auto) Eos % (Auto) Baso % (Auto) Neut # (Auto) Lymph # (Auto) [place] # (Auto) Eos # (Auto) Baso # (Auto) Immature Gran % Nucleated RBC % Immature Gran # Nucleated RBCs # ABG pH ABG pCO2 ABG pO2 ABG HCO3 ABG Total CO2 ABG O2 Saturation ABG Base Excess FiO2 Sodium Potassium Chloride Carbon Dioxide Anion Gap BUN Creatinine GFR Calculation BUN/Creatinine Ratio Glucose POC Glucose 176 H Calculated Osmolality Calcium - Diagnostic Findings Procedure: Chest x-ray: report reviewed by me, CT: report reviewed by me, Ultrasound: report reviewed by me (carotid US) - EKG EKG results: interpreted by me EKG shows: atrial fibrillation <Steve Hillman - Last Filed: 01/06/17 09:27> Cardiology - PN: Subj Interval history: I have seen, interviewed, examined the patient and reviewed his chart and discussed the case with the mid-level provider and agree with the plan as outlined in the note.I have seen, interviewed, examined the patient and reviewed his chart and discussed the case with the mid-level provider and agree with the plan as outlined in the note. Exam (Progress Note) - Constitutional Vitals: Period Temp Pulse Resp BP Sys/Rodriguez Pulse Ox Last 24 Hr 96.9 F-100.6 F 71-112 12-20 86-155/54-96 96-100 Result/EKG - Labs CBC & BMP: 01/06/17 04:35 01/06/17 04:35 Labs: Laboratory Results - last 24 hr 01/05/17 01/05/17 01/05/17 11:38 16:33 21:11 WBC RBC Hgb Hct MCV MCH MCHC RDW Plt Count MPV Neut % (Auto) Lymph % (Auto) [place] % (Auto) Eos % (Auto) Baso % (Auto) Neut # (Auto) Lymph # (Auto) [place] # (Auto) Eos # (Auto) Baso # (Auto) Immature Gran % Nucleated RBC % Immature Gran # Nucleated RBCs # ABG pH ABG pCO2 ABG pO2 ABG HCO3 ABG Total CO2 ABG O2 Saturation ABG Base Excess FiO2 Sodium Potassium Chloride Carbon Dioxide Anion Gap BUN Creatinine GFR Calculation BUN/Creatinine Ratio Glucose POC Glucose 111 H 105 117 H Calculated Osmolality Calcium 01/06/17 01/06/17 01/06/17 03:08 04:35 04:35 WBC 7.6 RBC 4.43 Hgb 11.3 L Hct 36.1 MCV 81.5 L MCH 26 L MCHC 31.3 L RDW 16.5 Plt Count 203 MPV 10.3 Neut % (Auto) 62.6 Lymph % (Auto) 20.9 L [place] % (Auto) 14.2 H Eos % (Auto) 1.3 Baso % (Auto) 0.3 Neut # (Auto) 4.8 Lymph # (Auto) 1.6 [place] # (Auto) 1.1 H Eos # (Auto) 0.1 Baso # (Auto) 0.0 Immature Gran % 0.7 Nucleated RBC % 0.0 Immature Gran # 0.05 Nucleated RBCs # 0.00 ABG pH 7.374 ABG pCO2 38.1 ABG pO2 121.0 H ABG HCO3 22.2 ABG Total CO2 19.8 L ABG O2 Saturation 98.6 ABG Base Excess -2.6 L FiO2 40.00 Sodium 142 Potassium 4.3 Chloride 112 H Carbon Dioxide 21 Anion Gap 13.3 BUN 26 H Creatinine 1.00 GFR Calculation 84 BUN/Creatinine Ratio 26.00 H Glucose 158 H POC Glucose Calculated Osmolality 290.1 Calcium 7.8 L 01/06/17 05:29 WBC RBC Hgb Hct MCV MCH MCHC RDW Plt Count MPV Neut % (Auto) Lymph % (Auto) [place] % (Auto) Eos % (Auto) Baso % (Auto) Neut # (Auto) Lymph # (Auto) [place] # (Auto) Eos # (Auto) Baso # (Auto) Immature Gran % Nucleated RBC % Immature Gran # Nucleated RBCs # ABG pH ABG pCO2 ABG pO2 ABG HCO3 ABG Total CO2 ABG O2 Saturation ABG Base Excess FiO2 Sodium Potassium Chloride Carbon Dioxide Anion Gap BUN Creatinine GFR Calculation BUN/Creatinine Ratio Glucose POC Glucose 176 H Calculated Osmolality Calcium
[2017-01-06 09:43] LABS: Free T4 (Free Thyroxine) 1.38 NG/DL (0.76-1.46); Thyroid Stimulating Hormone 0.706 uIU/ml (0.358-3.74)
--- NOTE | 2017-01-06 10:10 | Hospitalist Progress Note ---
Assessment and Plan (1) Pneumonia Status: Acute Assessment and plan: The patient has been to the hospital with right lung pneumonia. We are treating her with Cipro and cefuroxime. The patient is making steady progress and might be extubated today. The patient has had some shaking spells. We have ordered EEG and ask for Dr. Murphy Monreal to evaluate the possibility of seizure disorder. Current Visit: Yes Qualifiers: Pneumonia type: due to Pneumococcus Laterality: right Lung location: upper lobe of lung Qualified Code(s): J13 - Pneumonia due to Streptococcus pneumoniae (2) Paroxysmal a-fib Status: Chronic Current Visit: Yes (3) Urinary tract infection Status: Acute Current Visit: Yes (4) Diabetes Status: Chronic Current Visit: Yes Hospitalist: Subjective Interval history: This is a 76-year-old lady who was admitted to the hospital with spells which were associated with altered mental status. The patient was intubated in the emergency room and admitted to intensive care unit. The patient's shaking episodes may have been associated with chills. The patient tolerated mechanical ventilation, antibiotics were started, and the patient is making progress with CPAP trials. I coordinate care with Dr. Borges today and he believes the patient might be extubated. Exam - Constitutional Vitals: Period Temp Pulse Resp BP Sys/Rodriguez Pulse Ox Last 24 Hr 96.8 F-100.6 F 71-112 12-20 86-161/54-97 96-100 Exam: Constitutional System: Mild distress. No tremulousness. The patient is orally intubated and mechanically ventilated Head: Normocephalic, atraumatic. Ears, Nose and Throat System: No evidence of Otitis or Mastoiditis. No epistaxis or discharge Eyes System: Pupils equal, round, and reactive. Extraocular muscles intact. Neck: Supple, without adenopathy, No jugular venous distention. No thyromegaly , neck mass, or prior surgery apparent. Respiratory System: Chest with few scattered rhonchi on the right-hand side to auscultation. Cardiovascular System: Heart with regular rate and rhythm. No murmur. GI System: Abdomen soft, nontender. Normo active bowel sounds present. Musculoskeletal System: limbs with no pedal edema. Full distal pulses. Neurological System: No discernable sensory deficit. Results - Labs CBC & BMP: 01/06/17 04:35 01/06/17 04:35 Lab Results: I have reviewed the past 24 hour labs
[2017-01-06 10:49] LABS: Allen Test Positive; Pt O2 Delivery Device Ventilator
[2017-01-06 10:50] LABS: ABG Base Excess -2.8 MMOL/L (-2.5-2.5); ABG HCO3 21.7 MMOL/L (20-26); ABG Oxygen Saturation 97.4 % (95-100); ABG PCO2 36.9 MM HG (35-48); ABG PH 7.388 (7.35-7.45); ABG PO2 99.1 MM HG (80-95); ABG TCO2 22.9 MMOL/L (23-27)
[2017-01-06 12:10] LABS: Allen Test Positive; Pt O2 Delivery Device Simple Mask
[2017-01-06 12:11] LABS: ABG Base Excess -3.1 MMOL/L (-2.5-2.5); ABG HCO3 21.9 MMOL/L (20-26); ABG PCO2 38.1 MM HG (35-48); ABG PH 7.367 (7.35-7.45); ABG TCO2 19.5 MMOL/L (23-27)
[2017-01-06] MEDS: PROPOFOL 1,000 MG/100 ML BOTTLE IV SCH (13:10)
[2017-01-06] MEDS: DILTIAZEM 30 MG TABLET PO SCH ×3 (15:00→22:36)
--- NOTE | 2017-01-06 16:03 | Neurology Consult Note ---
History of Present Illness History of present illness: Ms. Albert is a 76 year old female with past medical history significant for CHF, atrial fibrillation, hypertension, diabetes mellitus, RA, asthma who presented to the ED via EMS for evaluation of syncope. Patient is unable to provide me any history. History basically obtained from the chart. According to the chart, the patient woke at approx 0100 to urinate when she became dizzy and unsteady. Her made her lie back in bed, and the patient became unresponsive, soiling herself. The noted that the patient's mouth appeared twisted and she was mumbling incoherently. Patient also had some N/V. EMS was alerted. The patient noted that EMS was on the scene when she came to. Head CT was negative for any acute intracranial process. She has been on antibiotics for possible/questionable pneumonia. She was intubated at first then extubated. She is alert awake and oriented 3. Fluent speech and good comprehension Home Medications Medication Instructions Recorded Confirmed Type Cholecalciferol (Vitamin D3) 1,000 unit PO DAILY 07/29/16 01/03/17 History [Vitamin D3] Hydrocodone/Acetaminophen 1 each PO BEDTIME PRN 07/29/16 01/03/17 History [Hydrocodon-Acetaminophen 5-325] Magnesium Chloride [Mag Delay] 64 mg PO DAILY 07/29/16 01/03/17 History Meloxicam [Mobic] 1 - 2 tablet PO DAILY PRN 07/29/16 01/03/17 History Metoprolol Tartrate Tab [Lopressor 100 mg PO TID 07/29/16 01/03/17 History Tab] Multivitamin (Centrum) [Centrum 1 tablet PO DAILY 07/29/16 01/03/17 History Tab] Potassium Chloride 20 meq PO DAILY 07/29/16 01/03/17 History Tolterodine Tartrate [Tolterodine 4 mg PO DAILY 07/29/16 01/03/17 History LA] cloNIDine HCl [Clonidine HCl] 0.2 mg PO BID 07/29/16 01/03/17 History glyBURIDE/METFORMIN 5-500 2 tablet PO DAILY W/BREAKFAST 07/29/16 01/03/17 History [Glucovance 5-500] Aspirin Chew Tab 81 mg PO DAILY tablet 08/02/16 01/03/17 Rx Insulin Glargine [Lantus] 42 unit SUBCUT BEDTIME 08/02/16 01/03/17 History Furosemide Tab [Lasix Tab] 40 mg PO DAILY #30 tablet 10/19/16 01/03/17 Rx Rivaroxaban [Xarelto] 1 tablet PO PC SUPPER 01/03/17 01/03/17 History Allergies Allergy/AdvReac Type Severity Reaction Status Date / Time Penicillins Allergy Unknown/Unable Verified 01/03/17 04:35 to obtain 12 point system: reviewed and no additional remarkable complaints except as stated Medical,Surgical,& Family Hx - Medical History Cardio: History of: Cardiac Dysrhythmia (afib), CHF, Hypertension, Cardiovascular Problems (EF 55%, 07/2016) No history of: CAD, Pacemaker Psychological: No history of: Anxiety Disorders, Depression Neurology: No history of: Cerebrovascular Accident, Seizures, TIA HEENT: History of: Eye Problem (GLASSES) Endocrine: History of: Diabetes Mellitus (IDDM) Rheumatology: History of;: Rheumatoid Arthritis Respiratory: History of: Obstructive Sleep Apnea Gastrointestinal: No history of: Gastrointestinal Bleed, Hematochezia, GI Problems Musculoskeletal: History of: Back/Neck Problems No history of: Amputation Hematology: No history of: Anemia, Bleeding Problems, Blood Disorders - Surgical History Cardiac Surgeries: Sugical HX of: Cardiac Catheterization (2 WEEKS AGO) Thoracic Surgeries: Patient denies;: Organ Transplant, Lobectomy Neurologic Surgeries: Patient denies: Neurologic Surgery Abdominal Surgeries: Patient denies: Abdominal Surgery Reproductive Surgeries: Surgical HX of;: Gynecologic Surgery, Hysterectomy Patient denies;: Genitourinary Surgery - Family History Family History: Reports;: Family Heart Disease (MOTHER), Family Stroke - Social History Smoking Status: Never smoker Frequency of Alcohol Use: None Type of Drug Use: None Exam - Constitutional Vitals: Period Temp Pulse Resp BP Sys/Rodriguez Pulse Ox Last 24 Hr 96 F-99.4 F 71-100 12-22 102-168/62-108 96-100 Exam: GENERAL: Patient is in no acute distress. NECK: Neck is supple. There is no JVD. No carotid bruits present. No thyroid masses. CVS: First and second heart sounds are normal. There is no S3 present. Regular rate and rhythm. RESPIRATORY: Lungs are clear to auscultation without any rales or rhonchi. ABDOMEN: Soft and non-tender. Bowel sounds are present. There is no hepatosplenomegaly. EXT: There is no palpable edema. Peripheral pulses are present. Skin: No rashes Central Nervous system: General: Alert, awake and Oriented x 3 Speech: Fluent Comprehension: Intact and normal Facial expressions: Normal Cranial Nerves: CN1/Olfactory: Normal CN II/ Optic: Normal, Visual Uribe unreliable CN III, and : CHARLY & EOMI CN V: Normal & intact CN VII: face is symmetric CNVIII: Normal CN XI/X/XI/XII: Intact and Normal Motor: Bulk and Tone is normal. Strength in the right 3-4/5 Strength in the left 3-4/5 Sensory: Grossly intact for all the modalities of PP, LT and temp sense Reflexes: 1+ and symmetrical Cerebellar function: Normal finger to nose and heel to buchanan testing. Toes: Equivocal Gait: Not tested at this Results - Labs CBC & BMP: 01/06/17 04:35 01/06/17 04:35 Assessment and Plan (1) Syncope Status: Acute Assessment and plan: Etiology is not clear. It could very well be a seizure. EEG done. Will review it. Continue present supportive management. Thank you for the consult Current Visit: Yes
[2017-01-06] MEDS: LEVOFLOXACIN INJ 500 MG in PREMIX 1 EACH IV SCH (17:00)
[2017-01-06] MEDS: ATORVASTATIN 40 MG TABLET PO SCH (20:11)
--- NOTE | 2017-01-07 00:07 | Electroencephalogram ---
DATE OF STUDY: HISTORY: A 76-year-old patient with a history of syncope. INTRODUCTION: A digital EEG was performed using a standard 10/20 system of electrode placement with one channel of EKG monitoring. Photic stimulation is performed. DESCRIPTION OF RECORD: The background is somewhat disorganized consists of 7 to 8 hertz low amplitu de bilateral symmetrical rhythm. Photic stimulation elicits driving response at all flash frequenci es. Hyperventilation was not performed. Drowsiness and sleep is not achieved. There are no focal, sharp wave, spike or wave activity seen. Heart rate 60 beats per minute. IMPRESSION: ABNORMAL EEG DUE TO GENERALIZED SLOWING. CLINICAL CORRELATION: This record is supportive of moderate to severe encephalopathy, which could b e secondary to postictal state, posthypoxic state, metabolic disorder, diffuse PROCUREMENT BUYER insult, or increa sed intracranial pressure. No epileptiform/seizure activity seen. Clinical correlation is suggested.
[2017-01-07] MEDS: hydrALAZINE 20 MG/1 ML VIAL IV PRN (01:37)
[2017-01-07] MEDS: ENOXAPARIN 80 MG/0.8 ML SYRINGE SUBCUT SCH ×2 (01:37→12:40)
[2017-01-07] MEDS: CEFEPIME 1,000 MG in SODIUM CHLORIDE 0.9% 100 ML IV SCH ×3 (01:38→18:30)
[2017-01-07] MEDS: SODIUM CHLORIDE 0.9% 1,000 ML IV SCH ×2 (03:02→14:00)
[2017-01-07 05:17] LABS: Basophils % 0.4 % (0.0-0.8); Eosinophils # 0.1 10*3/uL (0.0-0.87); Eosinophils % 0.8 % (0.00-10.9); Hematocrit 40.4 VOL% (35.7-47.0); Hemoglobin 12.8 GM/DL (12.0-16.0); Immature Granulocytes % 0.6 %; Immature Granulocytes Absolute 0.05 #; Lymphocytes # 1.5 10*3/uL (1.4-4.0); Lymphocytes % 19.5 % (21.3-54.2); Mean Corpuscular HGB Conc 31.7 GM/DL (32-36); Mean Corpuscular Hemoglobin 25 PG (27-34); Mean Platelet Volume 10.1 FL (9.6-12.0); Monocytes # 0.9 10*3/uL (0.11-0.8); Monocytes % 11.1 % (1.7-12.7); Neutrophils # 5.2 10*3/uL (1.4-7.4); Neutrophils % 67.6 % (38.7-73.9); Platelet Count 246 T/CUMM (130-400); Red Blood Count 5.05 MC/CUMM (3.8-5.5); Red Cell Distribution Width 16.2 % (9.3-17.3); White Blood Count 7.7 T/CUMM (4-12)
[2017-01-07 05:41] LABS: Calcium 8.2 MG/DL (8.5-10.1)
[2017-01-07 05:42] LABS: Magnesium 1.9 MG/DL (1.8-2.4); Osmolality,Calculated 291.8 MOS/KG (273-304); Potassium 3.9 MMOL/L (3.5-5.1)
[2017-01-07] MEDS ORDERED: PHENOL 1.4% THROAT SPRAY 177 ML BOTTLE PO PRN (06:51)
--- NOTE | 2017-01-07 07:03 | Pulmonology Progress Note ---
Pulmonary - PN: Subj Interval history: This 76-year-old black female had a syncopal episode. The etiology of it is not clear. May have been an arrhythmia or seizure. Her potassium was 2.6 and has been corrected. She had respiratory distress in the emergency room and was intubated. She has been followed by cardiology with a diagnosis of congestive heart failure which is apparently diastolic and is well controlled at the current time. She has chronic atrial fibrillation and has cardiomegaly on her x -ray. Her BNP is not very elevated. This morning she is more alert and ABGs look good. X-rays show some atelectasis in the right middle lobe likely due to mucous plugging. I will bronchoscope her this morning. Will change to IMV and start weaning. At some point will need neurology consult and EEG. 01/05/2017 patient did 4 hours of CPAP yesterday. We bronchoscoped her and removed some thick secretions. Cultures are not out yet but are showing some gram-positive cocci. She also has a urinary tract infection with gram-negative rods. She is on broad coverage with Levaquin and cefepime. This morning she had an episode of decreased level of consciousness associated with a shoe over. Looks like she may have been having a chill. We will see if her temperature goes up. The decreased level of consciousness is a bit unusual with that. This also does not look like a typical seizure. We need neurology to see her. I am a little concerned about extubating her until the spell stopped. Will continue with CPAP and check mechanics so that we would be ready to extubate if we could. 01/06/2017 patient did prolonged CPAP yesterday. She is alert and calm this morning should be able to get her extubated. She has grown out E. coli from her urine. She had fever during the day yesterday. I suspect what we saw yesterday morning was a chill. Will continue with antibiotics for the urinary tract infection. She also had some atelectasis in the right middle lobe and likely has some mild pneumonitis as well. Neurology is consulted to see if they think there is seizure activity. 01-07-17 patient was able to be extubated without difficulty. She is afebrile and alert and responsive now. EEG showed evidence of encephalopathy. Neurology consult appreciated. Being evaluated for possible seizures. Patient still having some tachycardia. With that and her severe hypertension, would wonder about something like a pheochromocytoma. Exam (Progress Note) - Constitutional Vitals: Period Temp Pulse Resp BP Sys/Rodriguze Pulse Ox Last 24 Hr 96 F-98.2 F 77-122 17- 119-168/68-115 93-100 Exam: Patient is responsive. She is alert and calm. Seems oriented, and answers questions. Atrial fibrillation with heart rate in the mid 110s. Vital signs otherwise normal. Pupils react to light. Neck is supple. No bruits. Chest reveals few rhonchi on the right lung otherwise clear. Heart irregular without murmur. Abdomen soft nontender no masses. Extremities no clubbing cyanosis edema. Calves nontender. Results - Labs CBC & BMP: 01/07/17 05:00 01/07/17 05:00 Lab Results: I have reviewed the past 24 hour labs Assessment and Plan (1) Acute respiratory failure Status: Acute Assessment and plan: ABGs look okay on 100% oxygen. Will reduce FiO2 to 60%. She needs evaluation of her cardiac status and syncope because before trying to wean. I am concerned that she may have had a seizure. 01/04/2017 ABGs look good. Reduce FiO2. Has some atelectasis right middle lobe which will require bronchoscopy. 01/05/2017 ABGs look good. Tolerating CPAP. Probably could be extubated if she has no further episodes of decreased level of consciousness. 01/06/2017 ABGs improved. Will start CPAP, check mechanics and ABGs, and hope to extubate this morning. 01-07-17 this has resolved. Still on low flow oxygen however. Current Visit: Yes (2) Congestive heart failure Problem details: EF 55% Status: Acute Assessment and plan: Has diastolic dysfunction. Atrial fibrillation. Followed by cardiology. 01/04/2017 carries a diagnosis of congestive heart failure for which she is followed by cardiology. Apparently he has normal LV ejection fraction. Do not think she is in forest failure at present. 01/05/2017 this is well controlled. 01/06/2017 no forest failure at this point. Normal ejection fraction. Cardiology following 01/07/17 no signs of active heart failure. Current Visit: No (3) Deep vein thrombosis (DVT) of femoral vein of left lower extremity Status: Acute Assessment and plan: This was noted during a recent hospitalization a couple months back and she is on anticoagulants. She had a CT PE protocol done with no signs of pulmonary emboli. 01/04/2017 on anticoagulants. 01/05/2017 on anticoagulants. No bleeding. 01/07/17 continuing anticoagulants Current Visit: No (4) Syncope Status: Acute Assessment and plan: This may be due to arrhythmia, postural hypotension, hypoglycemia, or possibly a seizure. 01/04/2017 etiology not clear. Will need neurologic evaluation. She does have some pulmonary hypertension in addition to an arrhythmia. Family thought her glucose might have been low as well. We do not have a measured one at that time. 01/05/2017 etiology not clear. She had an episode while we were observing. Pulse went to 140, systolic blood pressure to 200. She had what appeared to be a chill as well as decreased level of consciousness. Not sure whether this represents a chill associated with fever or whether it is a form of seizure. We will see what her temperature does. We will get an EEG and neurology consult when available. 01/06/2017 we still need a neurological evaluation. However the episode that I observed yesterday appears to have been a chill. She did subsequently have fever. No further episodes. 01/07/17 evaluation in progress for this. Current Visit: Yes (5) Pneumonia Status: Acute Assessment and plan: She had fever after readmission to the ICU. Likely has pneumonia. Now has developed some right middle lobe atelectasis. We have started antibiotics. Will bronchoscope and culture. 01/05/2017 has a right middle lobe pneumonia it appears. 01/06/2017 apparent right middle lobe pneumonia. Much improved. Continue cefepime and Levaquin. Bronchial wash cultures are negative. 01/07/17 radiographically improved. Growing gram-positive cocci from bronchial washings and currently on antibiotics for that. Await final culture and sensitivity report. Current Visit: Yes Qualifiers: Pneumonia type: due to Pneumococcus Laterality: right Lung location: upper lobe of lung Qualified Code(s): J13 - Pneumonia due to Streptococcus pneumoniae (6) Urinary tract infection Status: Acute Assessment and plan: Growing gram-negative rods. Currently on cefepime and Levaquin. If she was having fever and chills or sepsis from this, this could explain her syncope. 01/06/2017 E. coli has grown from the urine. It is sensitive to both cefepime and Levaquin. 01/07/17 E. coli UTI. Will covered. This could have been the initial event with episodes of sepsis/chills. Current Visit: Yes
[2017-01-07] MEDS: INSULIN LISPRO 100 UNIT/ML SUBCUT SCH ×4 (07:35→21:18)
[2017-01-07] MEDS: MULTIVITAMIN (CENTRUM) TABLET PO SCH (09:05)
[2017-01-07] MEDS: DILTIAZEM 30 MG TABLET PO SCH ×2 (09:05→12:40)
[2017-01-07] MEDS: POTASSIUM CHLORIDE 20 MEQ TABLET PO SCH (09:05)
[2017-01-07] MEDS: ASPIRIN 325 MG TABLET PO SCH (09:05)
[2017-01-07] MEDS: PANTOPRAZOLE 40 MG VIAL IV SCH ×2 (09:05→21:09)
[2017-01-07] MEDS: TOLTERODINE LA 4 MG CAPSULE PO SCH (09:05)
[2017-01-07] MEDS: METOPROLOL TARTRATE 100 MG TABLET PO SCH ×3 (09:05→21:10)
[2017-01-07] MEDS: MAGNESIUM CHLORIDE 64 MG TABLET PO SCH (09:05)
--- NOTE | 2017-01-07 09:10 | Hospitalist Progress Note ---
Assessment and Plan (1) Pneumonia Status: Acute Assessment and plan: The patient has been to the hospital with right lung pneumonia. We are treating her with Cipro and cefuroxime. The patient is making steady progress and was extubated yesterday. The patient has had some shaking spells. EEG was consistent with metabolic encephalopathy. Dr. Murphy Monreal did not start any antiseizure medication. The patient will be transferred to the floor today we will continue observation for seizure. Current Visit: Yes Qualifiers: Pneumonia type: due to Pneumococcus Laterality: right Lung location: upper lobe of lung Qualified Code(s): J13 - Pneumonia due to Streptococcus pneumoniae (2) Paroxysmal a-fib Status: Chronic Current Visit: Yes (3) Urinary tract infection Status: Acute Current Visit: Yes (4) Diabetes Status: Chronic Current Visit: Yes Hospitalist: Subjective Interval history: The patient is improved and ready for transfer to the floor. She has been extubated for about 18 hours and breathing comfortably with low flow oxygen. The patient has had no new spells of shaking. Urine culture has returned E. coli sensitive to most antibiotics. Exam - Constitutional Vitals: Period Temp Pulse Resp BP Sys/Rodriguez Pulse Ox Last 24 Hr 96 F-98.2 F 77-128 4-24 119-168/68-115 93-100 Exam: Constitutional System: Mild distress. No tremulousness. The patient is breathing spontaneously off the ventilator Head: Normocephalic, atraumatic. Ears, Nose and Throat System: No evidence of Otitis or Mastoiditis. No epistaxis or discharge Eyes System: Pupils equal, round, and reactive. Extraocular muscles intact. Neck: Supple, without adenopathy, No jugular venous distention. No thyromegaly , neck mass, or prior surgery apparent. Respiratory System: Chest with few scattered rhonchi on the right-hand side to auscultation. Cardiovascular System: Heart with regular rate and rhythm. No murmur. GI System: Abdomen soft, nontender. Normo active bowel sounds present. Musculoskeletal System: limbs with no pedal edema. Full distal pulses. Neurological System: No discernable sensory deficit. Results - Labs CBC & BMP: 01/07/17 05:00 01/07/17 05:00 Lab Results: I have reviewed the past 24 hour labs
--- NOTE | 2017-01-07 09:27 | Neurology Progress Note ---
Neurology - PN : Subjective Interval history: Patient seems to be doing okay. Alert awake and oriented 3. Moving all 4 extremities. EEG revealed generalized slowing but no seizure activity. Exam (Progress Note) - Constitutional Vitals: Period Temp Pulse Resp BP Sys/Rodriguez Pulse Ox Last 24 Hr 96 F-98.2 F 77-128 4-24 119-168/68-115 93-100 Exam: GENERAL: Patient is in no acute distress. NECK: Neck is supple. There is no JVD. No carotid bruits present. No thyroid masses. CVS: First and second heart sounds are normal. There is no S3 present. Regular rate and rhythm. RESPIRATORY: Lungs are clear to auscultation without any rales or rhonchi. ABDOMEN: Soft and non-tender. Bowel sounds are present. There is no hepatosplenomegaly. EXT: There is no palpable edema. Peripheral pulses are present. Skin: No rashes Central Nervous system: General: Alert, awake and Oriented x 3 Speech: Fluent Comprehension: Intact and normal Facial expressions: Normal Cranial Nerves: CN1/Olfactory: Normal CN II/ Optic: Normal, Visual Uribe unreliable CN III, and : CHARLY & EOMI CN V: Normal & intact CN VII: face is symmetric CNVIII: Normal CN XI/X/XI/XII: Intact and Normal Motor: Bulk and Tone is normal. Strength in the right 3-4/5 Strength in the left 3-4/5 Sensory: Grossly intact for all the modalities of PP, LT and temp sense Reflexes: 1+ and symmetrical Cerebellar function: Normal finger to nose and heel to buchanan testing. Toes: Equivocal Gait: Not tested at this but moving all 4 extremities Results - Labs CBC & BMP: 01/07/17 05:00 01/07/17 05:00 Assessment and Plan (1) Syncope Status: Acute Assessment and plan: Etiology is not clear. EEG failed to show any seizure activity or epileptiform discharges Continue supportive treatment Hold off to any AEDs at this time Continue watchful observation Current Visit: Yes
--- NOTE | 2017-01-07 15:32 | Cardiology Progress Note ---
Assessment and Plan - Time spent with patient Time spent with patient: Greater than 30 minutes (1) Diabetes Status: Chronic Assessment and plan: SEE PLAN OF CARE LISTED BELOW Current Visit: Yes (2) Pulmonary hypertension Status: Chronic Assessment and plan: SEE PLAN OF CARE LISTED BELOW Current Visit: No (3) Altered mental status Status: Acute Assessment and plan: SEE PLAN OF CARE LISTED BELOW Current Visit: Yes (4) Hypertension Status: Chronic Assessment and plan: SEE PLAN OF CARE LISTED BELOW Current Visit: Yes (5) Syncope Status: Acute Assessment and plan: SEE PLAN OF CARE LISTED BELOW Current Visit: Yes (6) Acute respiratory failure Status: Acute Assessment and plan: SEE PLAN OF CARE LISTED BELOW Current Visit: Yes (7) DVT (deep venous thrombosis) Status: Chronic Assessment and plan: SEE PLAN OF CARE LISTED BELOW Current Visit: Yes (8) Paroxysmal a-fib Status: Chronic Assessment and plan: SEE PLAN OF CARE LISTED BELOW Current Visit: Yes (9) Pneumonia Status: Acute Assessment and plan: SEE PLAN OF CARE LISTED BELOW Current Visit: Yes Qualifiers: Pneumonia type: due to Pneumococcus Laterality: right Lung location: upper lobe of lung Qualified Code(s): J13 - Pneumonia due to Streptococcus pneumoniae Cardiology - PN: Subj Interval history: Medical Transcription: Dr. Li SUMMARY: Ms. Albert was brought to the emergency department of [facility] December for dizziness and gait instability. She became unresponsive and required intubation. CT of head negative for an acute event. Neurology has been consulted. She has undergone bronchoscopy and diagnosed with pneumonia. Cardiology was consulted for atrial fibrillation with rapid ventricular response , hypertension and possible CHF. History of known atrial fibrillation on chronic anticoagulation. Most recent cardiac catheterization October 2016: no significant obstructive coronary artery disease noted, EF 50%. No history of significant valvular abnormality. She developed a post-cath hematoma and nonocclusive right common femoral vein in October 2016. She was changed from Xarelto to Eliquis for 1 month and then put back on the Xarelto. CT chest did not reveal PE nor volume overload. Carotid Dopplers revealed no evidence of significant stenosis bilaterally. JANUARY 06, 2017: She remains on Cardizem 5 mg/h IV and her heart rate has been controlled. She remains in atrial fibrillation. Over the weekend, they have attempted to do weaning trials with her ventilator but have been unsuccessful so far (possibly expressing a panic attack during some of the weaning trials.) Labs have been stable. She is tolerating aspirin, Lovenox (therapeutic dose) as her NOAC has been held, beta silvia. Today, will transition from IV diltiazem to diltiazem through NG tube. We will stop her clonidine in favor of higher dose of her rate controlling agents today. I do not see a recent TSH level and I will check during this hospital stay. JANUARY 07, 2017: Patient has been extubated overnight. She is awake, alert and oriented. She denies having chest pain, heaviness or tightness. She is still slightly tachypneic at rest. She has been weaned off of her IV Cardizem and her heart rate is averaging 100-110 bpm, atrial fibrillation. She is currently taking metoprolol tartrate 100 mg orally 3 times daily. Also, she is taking diltiazem 30 male grams orally 4 times daily. Today, I will increase her diltiazem to 60 mg 4 times daily with hold parameters. She has previously taken Xarelto for stroke prevention. This has been held and she has been covered with Lovenox in the interim. She is waiting for a telemetry bed. ASSESSMENT/PLAN: 1. SYNCOPE WITH MENTAL STATUS CHANGE - etiology unclear. Possibly related to an acute neurologic event such as stroke in this patient with a history of atrial fibrillation. Neurology has been consulted. CT head does not reveal an acute event. 2. ATRIAL FIBRILLATION WITH RVR - long-standing history of PAF and is chronically anticoagulated for this. She is currently rate controlled. Will eventually restart anticoagulation but is currently being treated with Lovenox, therapeutic dosing. Titrate up calcium channel silvia as blood pressure will allow. 3. HYPERTENSION - adequately controlled. Adjust meds accordingly during hospital stay. 4. CHF - originally, cardiology was consulted for possible CHF. Clinically, she is not volume overloaded, since chest x-ray is clear, BNP has been less than 400. Do not believe she is in congestive heart failure. 5. PULMONARY HYPERTENSION - chronic 6. RESPIRATORY FAILURE -now extubated. 7. CAP - being treated accordingly. 8. DYSLIPIDEMIA - LDL 70. Continue lipid-lowering agent. 9. DIABETES - continue current plan of care. Exam (Progress Note) - Constitutional Vitals: Period Temp Pulse Resp BP Sys/Rodriguez Pulse Ox Last 24 Hr 97 F-98.2 F 77-128 17-24 102-166/67-115 93-100 Exam: General: [Sitting up in bed, head of bed at 45. Awake, alert and oriented 3. Pleasant and cooperative ] HEENT: [Normocephalic, atraumatic. Mucous membranes moist. No jaundice noted. Conjunctiva moist and clear, sclerae anicteric] Neck: No obvious JVD/HJR, no thyromegaly or lymphadenopathy noted. No carotid bruit appreciated Cardiac: [Irregularly irregular rhythm, controlled rate. ] [No murmur rub or gallop.] Lungs: [Course sounds through out. Symmetrical chest wall movements. Slight tachypnea noted. Musculoskeletal: No fluid collection. Decreased range of motion is noted. Extremities: No clubbing, cyanosis noted. Upper extremity pulses 2+. Lower extremity pulses 2+. Trace bilateral lower extremity edema. Capillary refill less than 3 seconds. Skin: No unusual lesions or rashes. No skin breakdown appreciated. Neuro: No essential tremor is appreciated. Result/EKG - Labs CBC & BMP: 01/07/17 05:00 01/07/17 05:00 Lab Results: I have reviewed the past 24 hour labs Labs: Laboratory Results - last 24 hr 01/06/17 01/06/17 01/07/17 16:35 20:06 05:00 WBC 7.7 RBC 5.05 Hgb 12.8 Hct 40.4 MCV 80.0 L MCH 25 L MCHC 31.7 L RDW 16.2 Plt Count 246 D MPV 10.1 Neut % (Auto) 67.6 Lymph % (Auto) 19.5 L [place] % (Auto) 11.1 Eos % (Auto) 0.8 Baso % (Auto) 0.4 Neut # (Auto) 5.2 Lymph # (Auto) 1.5 [place] # (Auto) 0.9 H Eos # (Auto) 0.1 Baso # (Auto) 0.0 Immature Gran % 0.6 Nucleated RBC % 0.0 Immature Gran # 0.05 Nucleated RBCs # 0.00 Sodium Potassium Chloride Carbon Dioxide Anion Gap BUN Creatinine GFR Calculation BUN/Creatinine Ratio Glucose POC Glucose 124 H 201 H Calculated Osmolality Calcium Magnesium 01/07/17 05:00 WBC RBC Hgb Hct MCV MCH MCHC RDW Plt Count MPV Neut % (Auto) Lymph % (Auto) [place] % (Auto) Eos % (Auto) Baso % (Auto) Neut # (Auto) Lymph # (Auto) [place] # (Auto) Eos # (Auto) Baso # (Auto) Immature Gran % Nucleated RBC % Immature Gran # Nucleated RBCs # Sodium 144 Potassium 3.9 Chloride 112 H Carbon Dioxide 23 Anion Gap 12.9 BUN 17 Creatinine 0.70 GFR Calculation 131 BUN/Creatinine Ratio 24.00 H Glucose 170 H POC Glucose Calculated Osmolality 291.8 Calcium 8.2 L Magnesium 1.9 - EKG EKG results: interpreted by me EKG shows: atrial fibrillation
[2017-01-07] MEDS: DILTIAZEM 60 MG TABLET PO SCH ×2 (17:15→21:09)
[2017-01-07] MEDS: LEVOFLOXACIN INJ 500 MG in PREMIX 1 EACH IV SCH (17:15)
[2017-01-07] MEDS: ATORVASTATIN 40 MG TABLET PO SCH (21:09)
[2017-01-08] MEDS: ENOXAPARIN 80 MG/0.8 ML SYRINGE SUBCUT SCH ×2 (02:07→12:46)
[2017-01-08] MEDS: CEFEPIME 1,000 MG in SODIUM CHLORIDE 0.9% 100 ML IV SCH (02:08)
[2017-01-08] MEDS: SODIUM CHLORIDE 0.9% 1,000 ML IV SCH (02:44)
[2017-01-08 06:13] LABS: Calcium 8.3 MG/DL (8.5-10.1); Magnesium 1.9 MG/DL (1.8-2.4); Potassium 4.3 MMOL/L (3.5-5.1)
[2017-01-08 06:22] LABS: Basophils # 0.1 10*3/uL (0.0-0.2); Basophils % 0.5 % (0.0-0.8); Eosinophils # 0.1 10*3/uL (0.0-0.87); Eosinophils % 1.1 % (0.00-10.9); Hematocrit 38.9 VOL% (35.7-47.0); Hemoglobin 12.3 GM/DL (12.0-16.0); Immature Granulocytes % 0.8 %; Immature Granulocytes Absolute 0.08 #; Lymphocytes # 1.9 10*3/uL (1.4-4.0); Lymphocytes % 19.3 % (21.3-54.2); Mean Corpuscular HGB Conc 31.6 GM/DL (32-36); Mean Corpuscular Hemoglobin 26 PG (27-34); Mean Corpuscular Volume 80.7 FL (87-102); Mean Platelet Volume 11.4 FL (9.6-12.0); Monocytes # 1.3 10*3/uL (0.11-0.8); Monocytes % 13.3 % (1.7-12.7); Neutrophils # 6.4 10*3/uL (1.4-7.4); Platelet Count 269 T/CUMM (130-400); Red Blood Count 4.82 MC/CUMM (3.8-5.5); Red Cell Distribution Width 16.6 % (9.3-17.3); White Blood Count 9.8 T/CUMM (4-12)
--- NOTE | 2017-01-08 07:29 | Pulmonology Progress Note ---
Pulmonary - PN: Subj Interval history: This 76-year-old black female had a syncopal episode. The etiology of it is not clear. May have been an arrhythmia or seizure. Her potassium was 2.6 and has been corrected. She had respiratory distress in the emergency room and was intubated. She has been followed by cardiology with a diagnosis of congestive heart failure which is apparently diastolic and is well controlled at the current time. She has chronic atrial fibrillation and has cardiomegaly on her x -ray. Her BNP is not very elevated. This morning she is more alert and ABGs look good. X-rays show some atelectasis in the right middle lobe likely due to mucous plugging. I will bronchoscope her this morning. Will change to IMV and start weaning. At some point will need neurology consult and EEG. 01/05/2017 patient did 4 hours of CPAP yesterday. We bronchoscoped her and removed some thick secretions. Cultures are not out yet but are showing some gram-positive cocci. She also has a urinary tract infection with gram-negative rods. She is on broad coverage with Levaquin and cefepime. This morning she had an episode of decreased level of consciousness associated with a shoe over. Looks like she may have been having a chill. We will see if her temperature goes up. The decreased level of consciousness is a bit unusual with that. This also does not look like a typical seizure. We need neurology to see her. I am a little concerned about extubating her until the spell stopped. Will continue with CPAP and check mechanics so that we would be ready to extubate if we could. 01/06/2017 patient did prolonged CPAP yesterday. She is alert and calm this morning should be able to get her extubated. She has grown out E. coli from her urine. She had fever during the day yesterday. I suspect what we saw yesterday morning was a chill. Will continue with antibiotics for the urinary tract infection. She also had some atelectasis in the right middle lobe and likely has some mild pneumonitis as well. Neurology is consulted to see if they think there is seizure activity. 01-07-17 patient was able to be extubated without difficulty. She is afebrile and alert and responsive now. EEG showed evidence of encephalopathy. Neurology consult appreciated. Being evaluated for possible seizures. Patient still having some tachycardia. With that and her severe hypertension, would wonder about something like a pheochromocytoma. 01/08/2017 patient doing well since extubation. Had only a minimal pneumonia if that. The staph aureus was sensitive to everything tested including Levaquin. I think her fever and chills were caused by her urinary tract infection. The episodes of shivers and sweating and tachycardia may have been due to fever from the urinary tract infection. No definite evidence of a seizure. No definite evidence of a neurologic change as far as brain CT is concerned. Defer to neurology. This morning her blood pressure remains elevated. She is not on her home dose of clonidine. She is on beta-blockers. Defer to hospitalist and cardiology for management of her blood pressure. Stable from pulmonary standpoint. Wonder about an evaluation for pheochromocytoma? Exam (Progress Note) - Constitutional Vitals: Period Temp Pulse Resp BP Sys/Rodriguez Pulse Ox Last 24 Hr 97 F-98.2 F 96-128 16-24 102-197/67-115 92-100 Exam: Patient is responsive. She is alert and calm. Seems oriented, and answers questions. Atrial fibrillation with heart rate around 105. Blood pressure remains elevated at 165/115. Vital signs otherwise normal. Pupils react to light. Neck is supple. No bruits. Chest reveals few rhonchi on the right lung otherwise clear. Heart irregular without murmur. Abdomen soft nontender no masses. Extremities no clubbing cyanosis edema. Calves nontender. Results - Labs CBC & BMP: 01/08/17 04:49 01/08/17 04:49 Lab Results: I have reviewed the past 24 hour labs Assessment and Plan (1) Acute respiratory failure Status: Resolved Assessment and plan: ABGs look okay on 100% oxygen. Will reduce FiO2 to 60%. She needs evaluation of her cardiac status and syncope because before trying to wean. I am concerned that she may have had a seizure. 01/04/2017 ABGs look good. Reduce FiO2. Has some atelectasis right middle lobe which will require bronchoscopy. 01/05/2017 ABGs look good. Tolerating CPAP. Probably could be extubated if she has no further episodes of decreased level of consciousness. 01/06/2017 ABGs improved. Will start CPAP, check mechanics and ABGs, and hope to extubate this morning. 01-07-17 this has resolved. Still on low flow oxygen however. 01/08/2017 this has resolved. Only requiring low flow oxygen. Current Visit: Yes (2) Congestive heart failure Problem details: EF 55% Status: Resolved Assessment and plan: Has diastolic dysfunction. Atrial fibrillation. Followed by cardiology. 01/04/2017 carries a diagnosis of congestive heart failure for which she is followed by cardiology. Apparently he has normal LV ejection fraction. Do not think she is in forest failure at present. 01/05/2017 this is well controlled. 01/06/2017 no forest failure at this point. Normal ejection fraction. Cardiology following 01/07/17 no signs of active heart failure. 01/08/2017 no signs of heart failure. Current Visit: No (3) Deep vein thrombosis (DVT) of femoral vein of left lower extremity Status: Acute Assessment and plan: This was noted during a recent hospitalization a couple months back and she is on anticoagulants. She had a CT PE protocol done with no signs of pulmonary emboli. 01/04/2017 on anticoagulants. 01/05/2017 on anticoagulants. No bleeding. 01/07/17 continuing anticoagulants 01/08/2017 continuing anticoagulant for DVT. Current Visit: No (4) Syncope Status: Acute Assessment and plan: This may be due to arrhythmia, postural hypotension, hypoglycemia, or possibly a seizure. 01/04/2017 etiology not clear. Will need neurologic evaluation. She does have some pulmonary hypertension in addition to an arrhythmia. Family thought her glucose might have been low as well. We do not have a measured one at that time. 01/05/2017 etiology not clear. She had an episode while we were observing. Pulse went to 140, systolic blood pressure to 200. She had what appeared to be a chill as well as decreased level of consciousness. Not sure whether this represents a chill associated with fever or whether it is a form of seizure. We will see what her temperature does. We will get an EEG and neurology consult when available. 01/06/2017 we still need a neurological evaluation. However the episode that I observed yesterday appears to have been a chill. She did subsequently have fever. No further episodes. 01/07/17 evaluation in progress for this. 01/08/2017 exact etiology of this is still in question. No signs of seizures. She had an observed chill while on the ventilator. Was tachycardic and had decreased level of consciousness. Likely due to her urinary tract infection. Would consider looking for pheochromocytoma. Current Visit: Yes (5) Pneumonia Status: Acute Assessment and plan: She had fever after readmission to the ICU. Likely has pneumonia. Now has developed some right middle lobe atelectasis. We have started antibiotics. Will bronchoscope and culture. 01/05/2017 has a right middle lobe pneumonia it appears. 01/06/2017 apparent right middle lobe pneumonia. Much improved. Continue cefepime and Levaquin. Bronchial wash cultures are negative. 01/07/17 radiographically improved. Growing gram-positive cocci from bronchial washings and currently on antibiotics for that. Await final culture and sensitivity report. 01/08/2017 this is only minimal. Grew methicillin sensitive staph aureus. Sensitive to Levaquin. Would finish out 7 days of that and she would for her urinary tract infection. Cefepime can be discontinued Current Visit: Yes Qualifiers: Pneumonia type: due to Pneumococcus Laterality: right Lung location: upper lobe of lung Qualified Code(s): J13 - Pneumonia due to Streptococcus pneumoniae (6) Urinary tract infection Status: Acute Assessment and plan: Growing gram-negative rods. Currently on cefepime and Levaquin. If she was having fever and chills or sepsis from this, this could explain her syncope. 01/06/2017 E. coli has grown from the urine. It is sensitive to both cefepime and Levaquin. 01/07/17 E. coli UTI. Will covered. This could have been the initial event with episodes of sepsis/chills. 01/08/2017 finish out 7 days of antibiotics for this. Current Visit: Yes
[2017-01-08] MEDS: INSULIN LISPRO 100 UNIT/ML SUBCUT SCH ×4 (09:50→21:04)
[2017-01-08] MEDS: PANTOPRAZOLE 40 MG VIAL IV SCH (09:50)
[2017-01-08] MEDS: ASPIRIN 325 MG TABLET PO SCH (09:51)
[2017-01-08] MEDS: POTASSIUM CHLORIDE 20 MEQ TABLET PO SCH (09:51)
[2017-01-08] MEDS: MAGNESIUM CHLORIDE 64 MG TABLET PO SCH (09:51)
[2017-01-08] MEDS: MULTIVITAMIN (CENTRUM) TABLET PO SCH (09:51)
[2017-01-08] MEDS: TOLTERODINE LA 4 MG CAPSULE PO SCH (09:51)
[2017-01-08] MEDS: METOPROLOL TARTRATE 100 MG TABLET PO SCH ×3 (09:51→21:04)
[2017-01-08] MEDS: DILTIAZEM 60 MG TABLET PO SCH (09:51)
[2017-01-08] MEDS: CHOLECALCIFEROL 1,000 UNIT TABLET PO SCH (09:53)
--- NOTE | 2017-01-08 12:29 | Cardiology Progress Note ---
Assessment and Plan - Time spent with patient Time spent with patient: Greater than 30 minutes (1) Diabetes Status: Chronic Assessment and plan: SEE PLAN OF CARE LISTED BELOW Current Visit: Yes (2) Pulmonary hypertension Status: Chronic Assessment and plan: SEE PLAN OF CARE LISTED BELOW Current Visit: No (3) Altered mental status Status: Acute Assessment and plan: SEE PLAN OF CARE LISTED BELOW Current Visit: Yes (4) Hypertension Status: Chronic Assessment and plan: SEE PLAN OF CARE LISTED BELOW Current Visit: Yes (5) Syncope Status: Acute Assessment and plan: SEE PLAN OF CARE LISTED BELOW Current Visit: Yes (6) Acute respiratory failure Status: Resolved Assessment and plan: SEE PLAN OF CARE LISTED BELOW Current Visit: Yes (7) DVT (deep venous thrombosis) Status: Chronic Assessment and plan: SEE PLAN OF CARE LISTED BELOW Current Visit: Yes (8) Paroxysmal a-fib Status: Chronic Assessment and plan: SEE PLAN OF CARE LISTED BELOW Current Visit: Yes (9) Pneumonia Status: Acute Assessment and plan: SEE PLAN OF CARE LISTED BELOW Current Visit: Yes Qualifiers: Pneumonia type: due to Pneumococcus Laterality: right Lung location: upper lobe of lung Qualified Code(s): J13 - Pneumonia due to Streptococcus pneumoniae Cardiology - PN: Subj Interval history: Interval history: Cushion Filler: Dr. Li SUMMARY: Ms. Albert was brought to the emergency department of [facility] December for dizziness and gait instability. She became unresponsive and required intubation. CT of head negative for an acute event. Neurology has been consulted. She has undergone bronchoscopy and diagnosed with pneumonia. Cardiology was consulted for atrial fibrillation with rapid ventricular response , hypertension and possible CHF. History of known atrial fibrillation on chronic anticoagulation. Most recent cardiac catheterization October 2016: no significant obstructive coronary artery disease noted, EF 50%. No history of significant valvular abnormality. She developed a post-cath hematoma and nonocclusive right common femoral vein in October 2016. She was changed from Xarelto to Eliquis for 1 month and then put back on the Xarelto. CT chest did not reveal PE nor volume overload. Carotid Dopplers revealed no evidence of significant stenosis bilaterally. JANUARY 06, 2017: She remains on Cardizem 5 mg/h IV and her heart rate has been controlled. She remains in atrial fibrillation. Over the weekend, they have attempted to do weaning trials with her ventilator but have been unsuccessful so far (possibly expressing a panic attack during some of the weaning trials.) Labs have been stable. She is tolerating aspirin, Lovenox (therapeutic dose) as her NOAC has been held, beta silvia. Today, will transition from IV diltiazem to diltiazem through NG tube. We will stop her clonidine in favor of higher dose of her rate controlling agents today. I do not see a recent TSH level and I will check during this hospital stay. JANUARY 07, 2017: Patient has been extubated overnight. She is awake, alert and oriented. She denies having chest pain, heaviness or tightness. She is still slightly tachypneic at rest. She has been weaned off of her IV Cardizem and her heart rate is averaging 100-110 bpm, atrial fibrillation. She is currently taking metoprolol tartrate 100 mg orally 3 times daily. Also, she is taking diltiazem 30 male grams orally 4 times daily. Today, I will increase her diltiazem to 60 mg 4 times daily with hold parameters. She has previously taken Xarelto for stroke prevention. This has been held and she has been covered with Lovenox in the interim. She is waiting for a telemetry bed. JANUARY 08, 2017: Patient has been moved to a telemetry unit overnight. She is slowly improving. She believes that her breathing is less labored. Blood pressure remains elevated as well as her heart rate. I will titrate up her calcium channel silvia to 90 mg 4 times daily. Also, I will start IV digoxin 0.125 mg daily. Continue to monitor her labs. I will order chest x-ray for in the morning. She still getting hydrated and I am going to stop those fluids given that she still remains somewhat tachypneic. I do not want her to get into diastolic heart failure. ASSESSMENT/PLAN: 1. SYNCOPE WITH MENTAL STATUS CHANGE - etiology unclear. Possibly related to an acute neurologic event such as stroke in this patient with a history of atrial fibrillation. Neurology has been consulted. CT head does not reveal an acute event. 2. ATRIAL FIBRILLATION WITH RVR - long-standing history of PAF and is chronically anticoagulated for this. Rate is more elevated overnight. See plan of care listed above. Will eventually restart anticoagulation but is currently being treated with Lovenox, therapeutic dosing. Titrate up calcium channel silvia as blood pressure will allow. 3. HYPERTENSION - adjusting meds today. 4. CHF - originally, cardiology was consulted for possible CHF. Clinically, she is has not been volume overloaded but I will stop her hydration at this point as certainly do not want her to get into a diastolic heart failure picture. We have been hydrating her for several days and has improved her heart rate. 5. PULMONARY HYPERTENSION - chronic 6. RESPIRATORY FAILURE - now extubated. 7. CAP - being treated accordingly. 8. DYSLIPIDEMIA - LDL 70. Continue lipid-lowering agent. 9. DIABETES - continue current plan of care. Exam (Progress Note) - Constitutional Vitals: Period Temp Pulse Resp BP Sys/Rodriguez Pulse Ox Last 24 Hr 97.1 F-98.5 F 96-119 16-20 131-197/82-115 92-100 Exam: General: [Sitting up in bed, head of bed at 45. Awake, alert and oriented 3. Pleasant and cooperative ] HEENT: [Normocephalic, atraumatic. Mucous membranes moist. No jaundice noted. Conjunctiva moist and clear, sclerae anicteric] Neck: No obvious JVD/HJR, no thyromegaly or lymphadenopathy noted. No carotid bruit appreciated Cardiac: [Irregularly irregular rhythm, tachycardic. ] [No murmur rub or gallop.] Lungs: [Course sounds through out. Symmetrical chest wall movements. Slight tachypnea noted. Musculoskeletal: No fluid collection. Decreased range of motion is noted. Extremities: No clubbing, cyanosis noted. Upper extremity pulses 2+. Lower extremity pulses 2+. Trace bilateral lower extremity edema. Capillary refill less than 3 seconds. Skin: No unusual lesions or rashes. No skin breakdown appreciated. Neuro: No essential tremor is appreciated. Result/EKG - Labs CBC & BMP: 01/08/17 04:49 01/08/17 04:49 Lab Results: I have reviewed the past 24 hour labs Labs: Laboratory Results - last 24 hr 01/07/17 01/07/17 01/07/17 07:30 11:37 16:04 WBC RBC Hgb Hct MCV MCH MCHC RDW Plt Count MPV Neut % (Auto) Lymph % (Auto) [place] % (Auto) Eos % (Auto) Baso % (Auto) Neut # (Auto) Lymph # (Auto) [place] # (Auto) Eos # (Auto) Baso # (Auto) Immature Gran % Nucleated RBC % Immature Gran # Nucleated RBCs # Sodium Potassium Chloride Carbon Dioxide Anion Gap BUN Creatinine GFR Calculation BUN/Creatinine Ratio Glucose POC Glucose 161 H 178 H 238 H Calculated Osmolality Calcium Magnesium 01/07/17 01/08/17 01/08/17 21:08 04:49 04:49 WBC 9.8 RBC 4.82 Hgb 12.3 Hct 38.9 MCV 80.7 L MCH 26 L MCHC 31.6 L RDW 16.6 Plt Count 269 MPV 11.4 Neut % (Auto) 65.0 Lymph % (Auto) 19.3 L [place] % (Auto) 13.3 H Eos % (Auto) 1.1 Baso % (Auto) 0.5 Neut # (Auto) 6.4 Lymph # (Auto) 1.9 [place] # (Auto) 1.3 H Eos # (Auto) 0.1 Baso # (Auto) 0.1 Immature Gran % 0.8 Nucleated RBC % 0.0 Immature Gran # 0.08 Nucleated RBCs # 0.00 Sodium 143 Potassium 4.3 Chloride 110 H Carbon Dioxide 23 Anion Gap 14.3 BUN 16 Creatinine 0.70 GFR Calculation 131 BUN/Creatinine Ratio 22.00 H Glucose 246 H POC Glucose 192 H Calculated Osmolality 293.0 Calcium 8.3 L Magnesium 1.9 01/08/17 01/08/17 07:47 11:59 WBC RBC Hgb Hct MCV MCH MCHC RDW Plt Count MPV Neut % (Auto) Lymph % (Auto) [place] % (Auto) Eos % (Auto) Baso % (Auto) Neut # (Auto) Lymph # (Auto) [place] # (Auto) Eos # (Auto) Baso # (Auto) Immature Gran % Nucleated RBC % Immature Gran # Nucleated RBCs # Sodium Potassium Chloride Carbon Dioxide Anion Gap BUN Creatinine GFR Calculation BUN/Creatinine Ratio Glucose POC Glucose 230 H 276 H Calculated Osmolality Calcium Magnesium - EKG EKG results: interpreted by me EKG shows: atrial fibrillation (RVR)
[2017-01-08] MEDS: DIGOXIN 0.5 MG/2 ML AMP IV SCH (12:46)
[2017-01-08] MEDS: DILTIAZEM 90 MG TABLET PO SCH ×3 (12:47→21:02)
--- NOTE | 2017-01-08 13:19 | Hospitalist Progress Note ---
Assessment and Plan (1) Pneumonia Status: Acute Assessment and plan: The patient has been to the hospital with right lung pneumonia. We are treating her with Cipro and cefuroxime. The patient is making steady progress and was extubated on Friday. The patient has had some shaking spells. EEG was consistent with metabolic encephalopathy. Dr. Murphy Monreal did not start any antiseizure medication. The patient will be transferred from telemetry to [facility] today. The patient will continue treatment for urinary tract infection and observation for any evidence of seizure. Current Visit: Yes Qualifiers: Pneumonia type: due to Pneumococcus Laterality: right Lung location: upper lobe of lung Qualified Code(s): J13 - Pneumonia due to Streptococcus pneumoniae (2) Paroxysmal a-fib Status: Chronic Current Visit: Yes (3) Urinary tract infection Status: Acute Current Visit: Yes (4) Diabetes Status: Chronic Current Visit: Yes Hospitalist: Subjective Interval history: The patient was admitted to the hospital with altered mental status and was found to have urinary tract infection. The patient had some shaking. There was concern that the patient shaking might represent seizure disorder, or alternatively could be due to rigor. The patient initially required intubation and mechanical ventilation due to hypoxemia. The patient's breathing is doing better each day and urinary tract infection with E. coli was born out by urine culture. The patient is no longer taking antiseizure medication and has had no further shaking episodes. EEG did not show evidence of seizure-like activity. The patient has labile blood pressure and we are titrating medication. The patient is improved today and ready to transfer off telemetry. Exam - Constitutional Vitals: Period Temp Pulse Resp BP Sys/Rodriguez Pulse Ox Last 24 Hr 97.1 F-98.5 F 96-119 16-20 143-197/82-115 92-100 Exam: Constitutional System: No distress. No tremulousness. The patient is breathing with normal effort. Head: Normocephalic, atraumatic. Ears, Nose and Throat System: No evidence of Otitis or Mastoiditis. No epistaxis or discharge Eyes System: Pupils equal, round, and reactive. Extraocular muscles intact. Neck: Supple, without adenopathy, No jugular venous distention. No thyromegaly , neck mass, or prior surgery apparent. Respiratory System: Chest clear. Cardiovascular System: Heart with regular rate and rhythm. No murmur. GI System: Abdomen soft, nontender. Normo active bowel sounds present. Musculoskeletal System: limbs with no pedal edema. Full distal pulses. Neurological System: No discernable sensory deficit. Results - Labs CBC & BMP: 01/08/17 04:49 01/08/17 04:49 Lab Results: I have reviewed the past 24 hour labs
[2017-01-08] MEDS: PANTOPRAZOLE 40 MG TABLET PO SCH ×2 (14:55→21:04)
--- NOTE | 2017-01-08 15:50 | Neurology Progress Note ---
Neurology - PN : Subjective Interval history: Patient seems to be doing about the same. No new problems reported. No more syncopal episodes reported. Exam (Progress Note) - Constitutional Vitals: Period Temp Pulse Resp BP Sys/Rodriguez Pulse Ox Last 24 Hr 97.1 F-98.5 F 96-119 16-20 150-197/82-115 92-100 Exam: GENERAL: Patient is in no acute distress. NECK: Neck is supple. There is no JVD. No carotid bruits present. No thyroid masses. CVS: First and second heart sounds are normal. There is no S3 present. Regular rate and rhythm. RESPIRATORY: Lungs are clear to auscultation without any rales or rhonchi. ABDOMEN: Soft and non-tender. Bowel sounds are present. There is no hepatosplenomegaly. EXT: There is no palpable edema. Peripheral pulses are present. Skin: No rashes Central Nervous system: General: Alert, awake and Oriented x 3 Speech: Fluent Comprehension: Intact and normal Facial expressions: Normal Cranial Nerves: CN1/Olfactory: Normal CN II/ Optic: Normal, Visual Uribe unreliable CN III, and : CHARLY & EOMI CN V: Normal & intact CN VII: face is symmetric CNVIII: Normal CN XI/X/XI/XII: Intact and Normal Motor: Bulk and Tone is normal. Strength in the right 3-4/5 Strength in the left 3-4/5 Sensory: Grossly intact for all the modalities of PP, LT and temp sense Reflexes: 1+ and symmetrical Cerebellar function: Normal finger to nose and heel to buchanan testing. Toes: Equivocal Gait: Not tested at this but moving all 4 extremities Results - Labs CBC & BMP: 01/08/17 04:49 01/08/17 04:49 Assessment and Plan (1) Syncope Status: Acute Assessment and plan: No AEDs indicated at this time. No further intervention from neuro standpoint Thank you for the consult Sign off please call as needed Current Visit: Yes
[2017-01-08] MEDS: LEVOFLOXACIN INJ 500 MG in PREMIX 1 EACH IV SCH (17:49)
[2017-01-08] MEDS: ATORVASTATIN 40 MG TABLET PO SCH (21:02)
[2017-01-08] MEDS: MAGNESIUM OXIDE 400 MG TABLET PO SCH (21:04)
[2017-01-08] MEDS: LACTULOSE 20 GM/30 ML UDCUP PO PRN (21:31)
[2017-01-09] MEDS: ENOXAPARIN 80 MG/0.8 ML SYRINGE SUBCUT SCH ×2 (00:24→13:17)
[2017-01-09] MEDS: ALBUTEROL 0.63 MG/3 ML NEB RESP TX PRN ×3 (01:55→21:24)
[2017-01-09 05:53] LABS: Basophils # 0.1 10*3/uL (0.0-0.2); Basophils % 0.5 % (0.0-0.8); Eosinophils # 0.2 10*3/uL (0.0-0.87); Hematocrit 36.4 VOL% (35.7-47.0); Hemoglobin 11.7 GM/DL (12.0-16.0); Immature Granulocytes % 1.7 %; Immature Granulocytes Absolute 0.19 #; Lymphocytes # 3.2 10*3/uL (1.4-4.0); Lymphocytes % 28.4 % (21.3-54.2); Mean Corpuscular HGB Conc 32.1 GM/DL (32-36); Mean Corpuscular Hemoglobin 25 PG (27-34); Mean Corpuscular Volume 78.4 FL (87-102); Mean Platelet Volume 9.9 FL (9.6-12.0); Monocytes # 1.7 10*3/uL (0.11-0.8); Neutrophils # 5.9 10*3/uL (1.4-7.4); Neutrophils % 52.4 % (38.7-73.9); Platelet Count 310 T/CUMM (130-400); Red Blood Count 4.64 MC/CUMM (3.8-5.5); Red Cell Distribution Width 16.4 % (9.3-17.3); White Blood Count 11.3 T/CUMM (4-12)
[2017-01-09 06:25] LABS: Calcium 8.9 MG/DL (8.5-10.1); Potassium 3.9 MMOL/L (3.5-5.1)
--- NOTE | 2017-01-09 07:34 | Pulmonology Progress Note ---
Pulmonary - PN: Subj Interval history: This 76-year-old black female had a syncopal episode. The etiology of it is not clear. May have been an arrhythmia or seizure. Her potassium was 2.6 and has been corrected. She had respiratory distress in the emergency room and was intubated. She has been followed by cardiology with a diagnosis of congestive heart failure which is apparently diastolic and is well controlled at the current time. She has chronic atrial fibrillation and has cardiomegaly on her x -ray. Her BNP is not very elevated. This morning she is more alert and ABGs look good. X-rays show some atelectasis in the right middle lobe likely due to mucous plugging. I will bronchoscope her this morning. Will change to IMV and start weaning. At some point will need neurology consult and EEG. 01/05/2017 patient did 4 hours of CPAP yesterday. We bronchoscoped her and removed some thick secretions. Cultures are not out yet but are showing some gram-positive cocci. She also has a urinary tract infection with gram-negative rods. She is on broad coverage with Levaquin and cefepime. This morning she had an episode of decreased level of consciousness associated with a shoe over. Looks like she may have been having a chill. We will see if her temperature goes up. The decreased level of consciousness is a bit unusual with that. This also does not look like a typical seizure. We need neurology to see her. I am a little concerned about extubating her until the spell stopped. Will continue with CPAP and check mechanics so that we would be ready to extubate if we could. 01/06/2017 patient did prolonged CPAP yesterday. She is alert and calm this morning should be able to get her extubated. She has grown out E. coli from her urine. She had fever during the day yesterday. I suspect what we saw yesterday morning was a chill. Will continue with antibiotics for the urinary tract infection. She also had some atelectasis in the right middle lobe and likely has some mild pneumonitis as well. Neurology is consulted to see if they think there is seizure activity. 01-07-17 patient was able to be extubated without difficulty. She is afebrile and alert and responsive now. EEG showed evidence of encephalopathy. Neurology consult appreciated. Being evaluated for possible seizures. Patient still having some tachycardia. With that and her severe hypertension, would wonder about something like a pheochromocytoma. 01/08/2017 patient doing well since extubation. Had only a minimal pneumonia if that. The staph aureus was sensitive to everything tested including Levaquin. I think her fever and chills were caused by her urinary tract infection. The episodes of shivers and sweating and tachycardia may have been due to fever from the urinary tract infection. No definite evidence of a seizure. No definite evidence of a neurologic change as far as brain CT is concerned. Defer to neurology. This morning her blood pressure remains elevated. She is not on her home dose of clonidine. She is on beta-blockers. Defer to hospitalist and cardiology for management of her blood pressure. Stable from pulmonary standpoint. Wonder about an evaluation for pheochromocytoma? 01/09/2017 patient now on telemetry. Feeling better. O2 sats look good. Getting antibiotics for methicillin sensitive staph aureus pneumonia and E. coli urinary tract infection. Needs increased activity. Exam (Progress Note) - Constitutional Vitals: Period Temp Pulse Resp BP Sys/Rodriguez Pulse Ox Last 24 Hr 97.3 F-98.5 F 73-119 16-20 144-165/69-111 96-99 Exam: Patient is responsive. She is alert and calm. Seems oriented, and answers questions. Atrial fibrillation with heart rate around 105. Blood pressure at 150/80. Vital signs otherwise normal. Pupils react to light. Neck is supple. No bruits. Chest reveals few rhonchi on the right lung otherwise clear. Heart irregular without murmur. Abdomen soft nontender no masses. Extremities no clubbing cyanosis edema. Calves nontender. Results - Labs CBC & BMP: 01/09/17 05:44 01/09/17 05:44 Lab Results: I have reviewed the past 24 hour labs Assessment and Plan (1) Acute respiratory failure Status: Resolved Assessment and plan: ABGs look okay on 100% oxygen. Will reduce FiO2 to 60%. She needs evaluation of her cardiac status and syncope because before trying to wean. I am concerned that she may have had a seizure. 01/04/2017 ABGs look good. Reduce FiO2. Has some atelectasis right middle lobe which will require bronchoscopy. 01/05/2017 ABGs look good. Tolerating CPAP. Probably could be extubated if she has no further episodes of decreased level of consciousness. 01/06/2017 ABGs improved. Will start CPAP, check mechanics and ABGs, and hope to extubate this morning. 01-07-17 this has resolved. Still on low flow oxygen however. 01/08/2017 this has resolved. Only requiring low flow oxygen. 01/09/2017 this has resolved. Room air oxygen saturation in the 90s. Current Visit: Yes (2) Deep vein thrombosis (DVT) of femoral vein of left lower extremity Status: Acute Assessment and plan: This was noted during a recent hospitalization a couple months back and she is on anticoagulants. She had a CT PE protocol done with no signs of pulmonary emboli. 01/04/2017 on anticoagulants. 01/05/2017 on anticoagulants. No bleeding. 01/07/17 continuing anticoagulants 01/08/2017 continuing anticoagulant for DVT. 01/09/2017 continuing antibiotics for deep vein thrombosis. Current Visit: No (3) Syncope Status: Acute Assessment and plan: This may be due to arrhythmia, postural hypotension, hypoglycemia, or possibly a seizure. 01/04/2017 etiology not clear. Will need neurologic evaluation. She does have some pulmonary hypertension in addition to an arrhythmia. Family thought her glucose might have been low as well. We do not have a measured one at that time. 01/05/2017 etiology not clear. She had an episode while we were observing. Pulse went to 140, systolic blood pressure to 200. She had what appeared to be a chill as well as decreased level of consciousness. Not sure whether this represents a chill associated with fever or whether it is a form of seizure. We will see what her temperature does. We will get an EEG and neurology consult when available. 01/06/2017 we still need a neurological evaluation. However the episode that I observed yesterday appears to have been a chill. She did subsequently have fever. No further episodes. 01/07/17 evaluation in progress for this. 01/08/2017 exact etiology of this is still in question. No signs of seizures. She had an observed chill while on the ventilator. Was tachycardic and had decreased level of consciousness. Likely due to her urinary tract infection. Would consider looking for pheochromocytoma. 01/09/2017 no further episodes. Think much of this was related to urinary tract infection with sepsis and chills. Current Visit: Yes (4) Pneumonia Status: Acute Assessment and plan: She had fever after readmission to the ICU. Likely has pneumonia. Now has developed some right middle lobe atelectasis. We have started antibiotics. Will bronchoscope and culture. 01/05/2017 has a right middle lobe pneumonia it appears. 01/06/2017 apparent right middle lobe pneumonia. Much improved. Continue cefepime and Levaquin. Bronchial wash cultures are negative. 01/07/17 radiographically improved. Growing gram-positive cocci from bronchial washings and currently on antibiotics for that. Await final culture and sensitivity report. 01/08/2017 this is only minimal. Grew methicillin sensitive staph aureus. Sensitive to Levaquin. Would finish out 7 days of that and she would for her urinary tract infection. Cefepime can be discontinued. 01/09/2017 needs to finish 7 days of antibiotics for pneumonia. Levaquin covers the staff as well as her urinary tract infection with E. coli. Current Visit: Yes Qualifiers: Pneumonia type: due to Pneumococcus Laterality: right Lung location: upper lobe of lung Qualified Code(s): J13 - Pneumonia due to Streptococcus pneumoniae (5) Urinary tract infection Status: Acute Assessment and plan: Growing gram-negative rods. Currently on cefepime and Levaquin. If she was having fever and chills or sepsis from this, this could explain her syncope. 01/06/2017 E. coli has grown from the urine. It is sensitive to both cefepime and Levaquin. 01/07/17 E. coli UTI. Will covered. This could have been the initial event with episodes of sepsis/chills. 01/08/2017 finish out 7 days of antibiotics for this. Current Visit: Yes
--- NOTE | 2017-01-09 08:26 | XRay Report ---
Referring Physician: Jayda Craig Exam: XR chest 1V portable Date: January 09, 2017 at 6:27 AM Reason: Shortness of breath Comparison: Chest one view portable January 06, 2017 Findings: The previously seen endotracheal tube and feeding tube have been removed. The cardiac silhouette is again enlarged. There are minimal residual opacities within both lower lung zones, which are most consistent with atelectasis. No pneumothorax or definite pleural fluid is identified. No acute osseous process is seen. Impression: 1. The previously seen endotracheal tube and feeding tube have been removed. 2. Cardiomegaly. 3. There are minimal scattered opacities within both lower lung zones, which are slightly improved. This is most consistent with atelectasis. PROCEDURE INTERPRETED AT [facility] DEPARTMENT OF RADIOLOGY Final Report Signed by: Dr. Gabriel Larson
[2017-01-09] MEDS: MULTIVITAMIN (CENTRUM) TABLET PO SCH (09:25)
[2017-01-09] MEDS: CHOLECALCIFEROL 1,000 UNIT TABLET PO SCH (09:26)
[2017-01-09] MEDS: POTASSIUM CHLORIDE 20 MEQ TABLET PO SCH (09:26)
[2017-01-09] MEDS: TOLTERODINE LA 4 MG CAPSULE PO SCH (09:26)
[2017-01-09] MEDS: MAGNESIUM OXIDE 400 MG TABLET PO SCH ×2 (09:26→21:18)
[2017-01-09] MEDS: ASPIRIN 325 MG TABLET PO SCH (09:26)
[2017-01-09] MEDS: METOPROLOL TARTRATE 100 MG TABLET PO SCH ×3 (09:26→21:18)
[2017-01-09] MEDS: DILTIAZEM 90 MG TABLET PO SCH (09:26)
[2017-01-09] MEDS: INSULIN LISPRO 100 UNIT/ML SUBCUT SCH ×4 (09:26→21:17)
[2017-01-09] MEDS: FUROSEMIDE 40 MG TABLET PO SCH (09:26)
[2017-01-09] MEDS: PANTOPRAZOLE 40 MG TABLET PO SCH ×2 (09:26→21:18)
[2017-01-09] MEDS: MAGNESIUM CHLORIDE 64 MG TABLET PO SCH (09:27)
[2017-01-09] MEDS: DIGOXIN 0.5 MG/2 ML AMP IV SCH (09:27)
--- NOTE | 2017-01-09 09:39 | Hospitalist Progress Note ---
Assessment and Plan (1) Pneumonia Status: Acute Assessment and plan: The patient has been to the hospital with right lung pneumonia. We are treating her with Levaquin. The patient is making steady progress and was extubated on Friday. The patient has had some shaking spells. EEG was consistent with metabolic encephalopathy. Dr. Murphy Monreal did not start any antiseizure medication. The patient will be ready for discharge from hospital tomorrow. The patient will continue treatment for urinary tract infection and observation for any evidence of seizure. The patient may require swing bed transfer to improve strength prior to going home. Current Visit: Yes Qualifiers: Pneumonia type: due to Pneumococcus Laterality: right Lung location: upper lobe of lung Qualified Code(s): J13 - Pneumonia due to Streptococcus pneumoniae (2) Paroxysmal a-fib Status: Chronic Current Visit: Yes (3) Urinary tract infection Status: Acute Current Visit: Yes (4) Diabetes Status: Chronic Current Visit: Yes Hospitalist: Subjective Interval history: The patient continues recovering from urinary tract infection. She had MRSA isolated from bronchoscopy specimens. The patient is on seventh IV antibiotic day with Levaquin to which both organisms are sensitive. The patient is alert and lethargic. Telemetry monitoring reveals controlled atrial fibrillation. We are continuing to adjust antihypertensive heart failure regimen. The patient is beginning diuresis from the crystalloid fluid resuscitation were she received in the emergency room. The patient should be ready for discharge tomorrow but may require swing bed transfer in order to improve her strength prior to going home. The patient does not complain of pain, palpitations, or angina today. The patient's family is at the bedside and I reviewed the plan of care with them. Exam - Constitutional Vitals: Period Temp Pulse Resp BP Sys/Rodriguez Pulse Ox Last 24 Hr 97.3 F-98.5 F 73-103 16-20 144-180/69-108 94-100 Exam: Constitutional System: No distress. No tremulousness. The patient is breathing with normal effort. Head: Normocephalic, atraumatic. Ears, Nose and Throat System: No evidence of Otitis or Mastoiditis. No epistaxis or discharge Eyes System: Pupils equal, round, and reactive. Extraocular muscles intact. Neck: Supple, without adenopathy, No jugular venous distention. No thyromegaly , neck mass, or prior surgery apparent. Respiratory System: Chest clear. Cardiovascular System: Heart with regular rate and rhythm. No murmur. GI System: Abdomen soft, nontender. Normo active bowel sounds present. Musculoskeletal System: limbs with no pedal edema. Full distal pulses. Neurological System: No discernable sensory deficit. Results - Labs CBC & BMP: 01/09/17 05:44 01/09/17 05:44 Lab Results: I have reviewed the past 24 hour labs
[2017-01-09] MEDS: SODIUM CHLORIDE 0.9% 1,000 ML IV SCH (10:29)
[2017-01-09] MEDS ORDERED: TUBERCULIN SKIN TEST 0.1 ML SYRINGE INTRADERM ONE (10:45)
--- NOTE | 2017-01-09 11:12 | Cardiology Progress Note ---
Assessment and Plan - Time spent with patient Time spent with patient: Greater than 30 minutes (1) Diabetes Status: Chronic Assessment and plan: SEE PLAN OF CARE LISTED BELOW Current Visit: Yes (2) Pulmonary hypertension Status: Chronic Assessment and plan: SEE PLAN OF CARE LISTED BELOW Current Visit: No (3) Altered mental status Status: Acute Assessment and plan: SEE PLAN OF CARE LISTED BELOW Current Visit: Yes (4) Hypertension Status: Chronic Assessment and plan: SEE PLAN OF CARE LISTED BELOW Current Visit: Yes (5) Syncope Status: Acute Assessment and plan: SEE PLAN OF CARE LISTED BELOW Current Visit: Yes (6) Acute respiratory failure Status: Resolved Assessment and plan: SEE PLAN OF CARE LISTED BELOW Current Visit: Yes (7) DVT (deep venous thrombosis) Status: Chronic Assessment and plan: SEE PLAN OF CARE LISTED BELOW Current Visit: Yes (8) Paroxysmal a-fib Status: Chronic Assessment and plan: SEE PLAN OF CARE LISTED BELOW Current Visit: Yes (9) Pneumonia Status: Acute Assessment and plan: SEE PLAN OF CARE LISTED BELOW Current Visit: Yes Qualifiers: Pneumonia type: due to Pneumococcus Laterality: right Lung location: upper lobe of lung Qualified Code(s): J13 - Pneumonia due to Streptococcus pneumoniae Cardiology - PN: Subj Interval history: Interval history: University Relations Vice President: Dr. Li SUMMARY: Ms. Albert was brought to the emergency department of [facility] December for dizziness and gait instability. She became unresponsive and required intubation. CT of head negative for an acute event. Neurology has been consulted. She has undergone bronchoscopy and diagnosed with pneumonia. Cardiology was consulted for atrial fibrillation with rapid ventricular response , hypertension and possible CHF. History of known atrial fibrillation on chronic anticoagulation. Most recent cardiac catheterization October 2016: no significant obstructive coronary artery disease noted, EF 50%. No history of significant valvular abnormality. She developed a post-cath hematoma and nonocclusive right common femoral vein in October 2016. She was changed from Xarelto to Eliquis for 1 month and then put back on the Xarelto. CT chest did not reveal PE nor volume overload. Carotid Dopplers revealed no evidence of significant stenosis bilaterally. JANUARY 06, 2017: She remains on Cardizem 5 mg/h IV and her heart rate has been controlled. She remains in atrial fibrillation. Over the weekend, they have attempted to do weaning trials with her ventilator but have been unsuccessful so far (possibly expressing a panic attack during some of the weaning trials.) Labs have been stable. She is tolerating aspirin, Lovenox (therapeutic dose) as her NOAC has been held, beta silvia. Today, will transition from IV diltiazem to diltiazem through NG tube. We will stop her clonidine in favor of higher dose of her rate controlling agents today. I do not see a recent TSH level and I will check during this hospital stay. JANUARY 07, 2017: Patient has been extubated overnight. She is awake, alert and oriented. She denies having chest pain, heaviness or tightness. She is still slightly tachypneic at rest. She has been weaned off of her IV Cardizem and her heart rate is averaging 100-110 bpm, atrial fibrillation. She is currently taking metoprolol tartrate 100 mg orally 3 times daily. Also, she is taking diltiazem 30 male grams orally 4 times daily. Today, I will increase her diltiazem to 60 mg 4 times daily with hold parameters. She has previously taken Xarelto for stroke prevention. This has been held and she has been covered with Lovenox in the interim. She is waiting for a telemetry bed. JANUARY 08, 2017: Patient has been moved to a telemetry unit overnight. She is slowly improving. She believes that her breathing is less labored. Blood pressure remains elevated as well as her heart rate. I will titrate up her calcium channel silvia to 90 mg 4 times daily. Also, I will start IV digoxin 0.125 mg daily. Continue to monitor her labs. I will order chest x-ray for in the morning. She still getting hydrated and I am going to stop those fluids given that she still remains somewhat tachypneic. I do not want her to get into diastolic heart failure. JANUARY 09, 2017: This morning, patient's heart rate has improved. Averaging 80s and 90s. She remains in atrial fibrillation. She has tolerated the titration and calcium channel silvia well. Continues to take digoxin IV and will transition to oral dosing starting tomorrow. Will increase CCB to max dose of 480mg/24 hours today for better blood pressure control. Continues to take Lovenox 1mg/kg BID and will restart NOAC soon. ASSESSMENT/PLAN: 1. SYNCOPE WITH MENTAL STATUS CHANGE - etiology unclear. Possibly related to an acute neurologic event such as stroke in this patient with a history of atrial fibrillation. Neurology has been consulted. CT head does not reveal an acute event. 2. ATRIAL FIBRILLATION WITH RVR - long-standing history of PAF and is chronically anticoagulated for this. Rate improved with additio nof Digoxin and increase in CCB. See above. 3. HYPERTENSION - suboptimal controlled. Adjusting meds today. 4. CHF - originally, cardiology was consulted for possible CHF. Clinically, she is has not been volume overloaded. 5. PULMONARY HYPERTENSION - chronic 6. RESPIRATORY FAILURE - now extubated. 7. CAP - being treated accordingly. 8. DYSLIPIDEMIA - LDL 70. Continue lipid-lowering agent. 9. DIABETES - continue current plan of care. Exam (Progress Note) - Constitutional Vitals: Period Temp Pulse Resp BP Sys/Rodriguez Pulse Ox Last 24 Hr 97.3 F-98.5 F 73-103 16-20 144-180/69-108 94-100 Exam: General: [Sitting up in bed, head of bed at 45. Awake, alert and oriented 3. Pleasant and cooperative ] HEENT: [Normocephalic, atraumatic. Mucous membranes moist. No jaundice noted. Conjunctiva moist and clear, sclerae anicteric] Neck: No obvious JVD/HJR, no thyromegaly or lymphadenopathy noted. No carotid bruit appreciated Cardiac: [Irregularly irregular rhythm, controlled rate. ] [No murmur rub or gallop.] Lungs: [Course sounds through out. Symmetrical chest wall movements. Slight tachypnea noted. Musculoskeletal: No fluid collection. Decreased range of motion is noted. Extremities: No clubbing, cyanosis noted. Upper extremity pulses 2+. Lower extremity pulses 2+. Trace bilateral lower extremity edema. Capillary refill less than 3 seconds. Skin: No unusual lesions or rashes. No skin breakdown appreciated. Neuro: No essential tremor is appreciated. Result/EKG - Labs CBC & BMP: 01/09/17 05:44 01/09/17 05:44 Lab Results: I have reviewed the past 24 hour labs Labs: Laboratory Results - last 24 hr 01/08/17 01/08/17 01/08/17 11:59 15:45 20:44 WBC RBC Hgb Hct MCV MCH MCHC RDW Plt Count MPV Neut % (Auto) Lymph % (Auto) [place] % (Auto) Eos % (Auto) Baso % (Auto) Neut # (Auto) Lymph # (Auto) [place] # (Auto) Eos # (Auto) Baso # (Auto) Immature Gran % Nucleated RBC % Immature Gran # Nucleated RBCs # Sodium Potassium Chloride Carbon Dioxide Anion Gap BUN Creatinine GFR Calculation BUN/Creatinine Ratio Glucose POC Glucose 276 H 209 H 231 H Calculated Osmolality Calcium Magnesium B-Natriuretic Peptide 01/09/17 01/09/17 01/09/17 05:44 05:44 05:44 WBC 11.3 RBC 4.64 Hgb 11.7 L Hct 36.4 MCV 78.4 L MCH 25 L MCHC 32.1 RDW 16.4 Plt Count 310 MPV 9.9 Neut % (Auto) 52.4 Lymph % (Auto) 28.4 [place] % (Auto) 15.0 H Eos % (Auto) 2.0 Baso % (Auto) 0.5 Neut # (Auto) 5.9 Lymph # (Auto) 3.2 [place] # (Auto) 1.7 H Eos # (Auto) 0.2 Baso # (Auto) 0.1 Immature Gran % 1.7 Nucleated RBC % 0.0 Immature Gran # 0.19 Nucleated RBCs # 0.00 Sodium 143 Potassium 3.9 Chloride 110 H Carbon Dioxide 23 Anion Gap 13.9 BUN 13 Creatinine 0.70 GFR Calculation 133 BUN/Creatinine Ratio 18.00 Glucose 201 H POC Glucose Calculated Osmolality 290.0 Calcium 8.9 Magnesium 2.0 B-Natriuretic Peptide 322 H 01/09/17 07:55 WBC RBC Hgb Hct MCV MCH MCHC RDW Plt Count MPV Neut % (Auto) Lymph % (Auto) [place] % (Auto) Eos % (Auto) Baso % (Auto) Neut # (Auto) Lymph # (Auto) [place] # (Auto) Eos # (Auto) Baso # (Auto) Immature Gran % Nucleated RBC % Immature Gran # Nucleated RBCs # Sodium Potassium Chloride Carbon Dioxide Anion Gap BUN Creatinine GFR Calculation BUN/Creatinine Ratio Glucose POC Glucose 191 H Calculated Osmolality Calcium Magnesium B-Natriuretic Peptide - Diagnostic Findings Procedure: Chest x-ray: report reviewed by me - EKG EKG results: interpreted by me EKG shows: atrial fibrillation
--- NOTE | 2017-01-09 11:57 | Case Mgmt Physician Query Form ---
TB Signs and Symptoms Screening ([place]) INSTRUCTIONS: To be completed annually on residents/staff with a significant Tuberculin Skin Test (TST) upon admission/hire or a prior significant TST. To be completed on all staff at hire. Please respond to each listed symptom with an (X) in either the "YES" or "NO" box. Do you currently have any of the following symptoms: YES NO ( ) (X ) A cough If yes, is it: ( ) Productive ( ) Non- productive ( ) (X ) Hemoptysis (spitting up blood) ( ) (X ) Chest pains ( ) (X ) Weight Loss ( ) (X ) Fever ( ) ( X) Night Sweats ( ) ( X) Weakness ( ) (X ) Loss of Appetite ( ) (X ) Difficulty Breathing If you answered YES" to any of the above questions, how long have symptoms been present? Comments: If you have any questions ,please contact me. Thank You SILVIA Valentino, HORTICULTURAL SERVICES SUPERVISOR Email :[email or web address]
[2017-01-09] MEDS: DILTIAZEM 60 MG TABLET PO SCH ×3 (13:17→21:17)
[2017-01-09] MEDS: LACTULOSE 20 GM/30 ML UDCUP PO PRN ×2 (14:16→23:20)
[2017-01-09] MEDS: DOCUSATE SODIUM 100 MG CAPSULE PO PRN ×2 (14:16→21:19)
[2017-01-09] MEDS: LEVOFLOXACIN INJ 500 MG in PREMIX 1 EACH IV SCH (17:42)
[2017-01-09] MEDS ORDERED: RIVAROXABAN 20 MG TABLET PO SCH (18:00)
[2017-01-09] MEDS: ATORVASTATIN 40 MG TABLET PO SCH (21:18)
[2017-01-10 04:39] LABS: Basophils % 0.4 % (0.0-0.8); Eosinophils # 0.3 10*3/uL (0.0-0.87); Eosinophils % 2.3 % (0.00-10.9); Hemoglobin 11.2 GM/DL (12.0-16.0); Immature Granulocytes % 2.3 %; Immature Granulocytes Absolute 0.25 #; Lymphocytes # 2.3 10*3/uL (1.4-4.0); Lymphocytes % 20.8 % (21.3-54.2); Mean Corpuscular HGB Conc 31.1 GM/DL (32-36); Mean Corpuscular Hemoglobin 25 PG (27-34); Mean Corpuscular Volume 80.7 FL (87-102); Mean Platelet Volume 10.1 FL (9.6-12.0); Monocytes # 1.6 10*3/uL (0.11-0.8); Monocytes % 14.1 % (1.7-12.7); Neutrophils # 6.7 10*3/uL (1.4-7.4); Neutrophils % 60.1 % (38.7-73.9); Platelet Count 301 T/CUMM (130-400); Red Blood Count 4.46 MC/CUMM (3.8-5.5); Red Cell Distribution Width 16.3 % (9.3-17.3); White Blood Count 11.1 T/CUMM (4-12)
[2017-01-10 05:13] LABS: Calcium 8.7 MG/DL (8.5-10.1); Magnesium 1.8 MG/DL (1.8-2.4); Osmolality,Calculated 285.3 MOS/KG (273-304); Potassium 3.9 MMOL/L (3.5-5.1)
--- NOTE | 2017-01-10 08:46 | Pulmonology Progress Note ---
Pulmonary - PN: Subj Interval history: This 76-year-old black female had a syncopal episode. The etiology of it is not clear. May have been an arrhythmia or seizure. Her potassium was 2.6 and has been corrected. She had respiratory distress in the emergency room and was intubated. She has been followed by cardiology with a diagnosis of congestive heart failure which is apparently diastolic and is well controlled at the current time. She has chronic atrial fibrillation and has cardiomegaly on her x -ray. Her BNP is not very elevated. This morning she is more alert and ABGs look good. X-rays show some atelectasis in the right middle lobe likely due to mucous plugging. I will bronchoscope her this morning. Will change to IMV and start weaning. At some point will need neurology consult and EEG. 01/05/2017 patient did 4 hours of CPAP yesterday. We bronchoscoped her and removed some thick secretions. Cultures are not out yet but are showing some gram-positive cocci. She also has a urinary tract infection with gram-negative rods. She is on broad coverage with Levaquin and cefepime. This morning she had an episode of decreased level of consciousness associated with a shoe over. Looks like she may have been having a chill. We will see if her temperature goes up. The decreased level of consciousness is a bit unusual with that. This also does not look like a typical seizure. We need neurology to see her. I am a little concerned about extubating her until the spell stopped. Will continue with CPAP and check mechanics so that we would be ready to extubate if we could. 01/06/2017 patient did prolonged CPAP yesterday. She is alert and calm this morning should be able to get her extubated. She has grown out E. coli from her urine. She had fever during the day yesterday. I suspect what we saw yesterday morning was a chill. Will continue with antibiotics for the urinary tract infection. She also had some atelectasis in the right middle lobe and likely has some mild pneumonitis as well. Neurology is consulted to see if they think there is seizure activity. 01-07-17 patient was able to be extubated without difficulty. She is afebrile and alert and responsive now. EEG showed evidence of encephalopathy. Neurology consult appreciated. Being evaluated for possible seizures. Patient still having some tachycardia. With that and her severe hypertension, would wonder about something like a pheochromocytoma. 01/08/2017 patient doing well since extubation. Had only a minimal pneumonia if that. The staph aureus was sensitive to everything tested including Levaquin. I think her fever and chills were caused by her urinary tract infection. The episodes of shivers and sweating and tachycardia may have been due to fever from the urinary tract infection. No definite evidence of a seizure. No definite evidence of a neurologic change as far as brain CT is concerned. Defer to neurology. This morning her blood pressure remains elevated. She is not on her home dose of clonidine. She is on beta-blockers. Defer to hospitalist and cardiology for management of her blood pressure. Stable from pulmonary standpoint. Wonder about an evaluation for pheochromocytoma? 01/09/2017 patient now on telemetry. Feeling better. O2 sats look good. Getting antibiotics for methicillin sensitive staph aureus pneumonia and E. coli urinary tract infection. Needs increased activity. 01/10/2017 patient feeling much better. About ready to go to swing bed. Finish out antibiotics for the urinary tract infection as well as pneumonia. Just needs a few more days. In my opinion her "syncopal episodes" were due to chills from urinary tract infection and sepsis. I observed 1 of them while she was on the ventilator earlier in which she shivered and then became unresponsive and then woke up 15-30 seconds later. They were not typical clotting tonic type seizures. It appeared more to be a chill. Exam (Progress Note) - Constitutional Vitals: Period Temp Pulse Resp BP Sys/Rodriguez Pulse Ox Last 24 Hr 97.1 F-97.9 F 52-91 16-20 134-166/71-88 95-99 Exam: Patient is responsive. She is alert and calm. Seems oriented, and answers questions. Atrial fibrillation with heart rate around 90. Blood pressure at 150/80. Vital signs otherwise normal. Pupils react to light. Neck is supple. No bruits. Chest reveals few rhonchi on the right lung otherwise clear. Heart irregular without murmur. Abdomen soft nontender no masses. Extremities no clubbing cyanosis edema. Calves nontender. Little change from yesterday. Results - Labs CBC & BMP: 01/10/17 04:05 01/10/17 04:05 Lab Results: I have reviewed the past 24 hour labs Assessment and Plan (1) Acute respiratory failure Status: Resolved Assessment and plan: ABGs look okay on 100% oxygen. Will reduce FiO2 to 60%. She needs evaluation of her cardiac status and syncope because before trying to wean. I am concerned that she may have had a seizure. 01/04/2017 ABGs look good. Reduce FiO2. Has some atelectasis right middle lobe which will require bronchoscopy. 01/05/2017 ABGs look good. Tolerating CPAP. Probably could be extubated if she has no further episodes of decreased level of consciousness. 01/06/2017 ABGs improved. Will start CPAP, check mechanics and ABGs, and hope to extubate this morning. 01-07-17 this has resolved. Still on low flow oxygen however. 01/08/2017 this has resolved. Only requiring low flow oxygen. 01/09/2017 this has resolved. Room air oxygen saturation in the 90s. 01/10/2017 his has resolved. Current Visit: Yes (2) Deep vein thrombosis (DVT) of femoral vein of left lower extremity Status: Acute Assessment and plan: This was noted during a recent hospitalization a couple months back and she is on anticoagulants. She had a CT PE protocol done with no signs of pulmonary emboli. 01/04/2017 on anticoagulants. 01/05/2017 on anticoagulants. No bleeding. 01/07/17 continuing anticoagulants 01/08/2017 continuing anticoagulant for DVT. 01/09/2017 continuing anticoags for deep vein thrombosis. 01/10/2017 continuing anticoagulants. Current Visit: No (3) Syncope Status: Acute Assessment and plan: This may be due to arrhythmia, postural hypotension, hypoglycemia, or possibly a seizure. 01/04/2017 etiology not clear. Will need neurologic evaluation. She does have some pulmonary hypertension in addition to an arrhythmia. Family thought her glucose might have been low as well. We do not have a measured one at that time. 01/05/2017 etiology not clear. She had an episode while we were observing. Pulse went to 140, systolic blood pressure to 200. She had what appeared to be a chill as well as decreased level of consciousness. Not sure whether this represents a chill associated with fever or whether it is a form of seizure. We will see what her temperature does. We will get an EEG and neurology consult when available. 01/06/2017 we still need a neurological evaluation. However the episode that I observed yesterday appears to have been a chill. She did subsequently have fever. No further episodes. 01/07/17 evaluation in progress for this. 01/08/2017 exact etiology of this is still in question. No signs of seizures. She had an observed chill while on the ventilator. Was tachycardic and had decreased level of consciousness. Likely due to her urinary tract infection. Would consider looking for pheochromocytoma. 01/09/2017 no further episodes. Think much of this was related to urinary tract infection with sepsis and chills. 01/10/2017 the episode that I saw appeared to be related to a chill from her sepsis. Current Visit: Yes (4) Pneumonia Status: Acute Assessment and plan: She had fever after readmission to the ICU. Likely has pneumonia. Now has developed some right middle lobe atelectasis. We have started antibiotics. Will bronchoscope and culture. 01/05/2017 has a right middle lobe pneumonia it appears. 01/06/2017 apparent right middle lobe pneumonia. Much improved. Continue cefepime and Levaquin. Bronchial wash cultures are negative. 01/07/17 radiographically improved. Growing gram-positive cocci from bronchial washings and currently on antibiotics for that. Await final culture and sensitivity report. 01/08/2017 this is only minimal. Grew methicillin sensitive staph aureus. Sensitive to Levaquin. Would finish out 7 days of that and she would for her urinary tract infection. Cefepime can be discontinued. 01/09/2017 needs to finish 7 days of antibiotics for pneumonia. Levaquin covers the staff as well as her urinary tract infection with E. coli. 01/10/2017 this is very mild radiographically. Finish out 1 week of antibiotics with Levaquin. Current Visit: Yes Qualifiers: Pneumonia type: due to Pneumococcus Laterality: right Lung location: upper lobe of lung Qualified Code(s): J13 - Pneumonia due to Streptococcus pneumoniae (5) Urinary tract infection Status: Acute Assessment and plan: Growing gram-negative rods. Currently on cefepime and Levaquin. If she was having fever and chills or sepsis from this, this could explain her syncope. 01/06/2017 E. coli has grown from the urine. It is sensitive to both cefepime and Levaquin. 01/07/17 E. coli UTI. Will covered. This could have been the initial event with episodes of sepsis/chills. 01/08/2017 finish out 7 days of antibiotics for this. Current Visit: Yes
--- NOTE | 2017-01-10 08:59 | Discharge Summary ---
Hospital Course - Hospital Course Hospital Course: Ms. Albert is a 76-year-old female with history of CHF, A. fib, hypertension, diabetes, RA, and asthma presented to the ED on 01/03/2017 for evaluation of syncope and possible TIA. Patient did become unresponsive and soiled herself at home and was mumbling incoherently. She was admitted for stroke workup. Her carotids were fine. Patient became acutely short of breath and went into A. fib with RVR and was subsequently intubated. Dr. Schulte from pulmonary was consulted along with Dr. Gross from cardiology. Patient underwent fiberoptic bronchoscopy on 01/04/2017 where some thick secretions were removed. She was treated for pneumonia and also found to have a urinary tract infection. She did develop some shaking chills and increased temperature with a decreased loss of consciousness and they were concerned she may have been experiencing a seizure. Dr. Rodriguez from neurology was consulted and performed an EEG which was consistent with metabolic encephalopathy. No antiseizure medication was started. It was felt that she was experiencing rigors from her pneumonia and UTI instead of seizure. Patient is awake and alert but weak from her hospitalization. She has been switched to p.o. Levaquin which is sensitive to both her lung and urinary tract infection. Her antihypertensive heart failure regimen has been adjusted by cardiology and she has been diuresed from her fluid resuscitation in the ED. She is being transferred to swing bed today for further rehab to prepare for home. Patient's care was coordinated with Dr. Schulte, Jayda HILL from cardiology, case management, nursing, and Dr. Delgadillo the attending hospitalist. Total discharge time including care coordination, chart review, and discharge paperwork took approximately 44 minutes. - Time spent with patient Time with patient DS: Greater than 30 minutes Diagnosis - Discharge Diagnosis (1) Acute dyspnea Status: Resolved (2) Diabetes Status: Chronic (3) Obesity Status: Chronic (4) Pulmonary hypertension Status: Chronic (5) Persistent atrial fibrillation Status: Chronic (6) Cardiomyopathy Status: Chronic (7) Deep vein thrombosis (DVT) of femoral vein of left lower extremity Status: Resolved (8) Acute respiratory failure Status: Resolved (9) Pneumonia Status: Resolved (10) Urinary tract infection Status: Resolved Discharge Plan - Discharge Data Disposition: Swing Bed, [facility], [facility] Condition at Discharge: Stable Discharge Diet: diabetic diet Activity: as per physical therapy Hygiene: may shower Driving: not until seen by doctor Contact your physician if you experience:: fever over 101, Nausea/Vomiting, Shortness of breath - Discharge Medications New Digoxin Tab [Lanoxin Tab] 0.125 mg PO DAILY@1300 #60 tablet Diltiazem Tab [Cardizem Tab] 120 mg PO QID #480 tablet Losartan [Cozaar] 25 mg PO DAILY #60 tablet Pantoprazole Tab [Protonix Tab] 40 mg PO BID #120 tablet Potassium Chloride Cap/Tab [K Dur] 20 meq PO DAILY #60 tablet Rivaroxaban [Xarelto] 20 mg PO PC SUPPER #60 tablet Levofloxacin Tab [Levaquin Tab] 500 mg PO DAILY #5 tablet Atorvastatin [Lipitor] 80 mg PO BEDTIME #60 tablet Magnesium Oxide 400 mg PO BID #120 tablet Continue Multivitamin (Centrum) [Centrum Tab] 1 tablet PO DAILY Tolterodine Tartrate [Tolterodine LA] 4 mg PO DAILY Meloxicam [Mobic] 1 - 2 tablet PO DAILY PRN PRN Reason: Pain glyBURIDE/METFORMIN 5-500 [Glucovance 5-500] 2 tablet PO DAILY W/BREAKFAST Metoprolol Tartrate Tab [Lopressor Tab] 100 mg PO TID Cholecalciferol (Vitamin D3) [Vitamin D3] 1,000 unit PO DAILY Potassium Chloride 20 meq PO DAILY Hydrocodone/Acetaminophen [Hydrocodon-Acetaminophen 5-325] 1 each PO BEDTIME PRN PRN Reason: Pain Magnesium Chloride [Mag Delay] 64 mg PO DAILY Insulin Glargine [Lantus] 42 unit SUBCUT BEDTIME Aspirin Chew Tab 81 mg PO DAILY tablet Furosemide Tab [Lasix Tab] 40 mg PO DAILY #30 tablet Rivaroxaban [Xarelto] 1 tablet PO PC SUPPER Discontinued cloNIDine HCl [Clonidine HCl] 0.2 mg PO BID - Follow Up or Referral Follow Up: Marcello Li MD [Physician] - 1 Month - Forms/Instructions Exam - Constitutional Vitals: Period Temp Pulse Resp BP Sys/Rodriguez Pulse Ox Last 24 Hr 97.1 F-97.9 F 52-94 16-20 134-166/71-88 95-100 Exam: 76-year-old female, no acute distress, alert and oriented Chest clear CV irregularly irregular Abdomen nontender Extremities no edema Discharge Results Labs on day of discharge: Labs from last 24 hours 01/10/17 01/10/17 01/09/17 04:05 04:05 19:31 WBC 11.1 RBC 4.46 Hgb 11.2 L Hct 36.0 MCV 80.7 L MCH 25 L MCHC 31.1 L RDW 16.3 Plt Count 301 MPV 10.1 Neut % (Auto) 60.1 Lymph % (Auto) 20.8 L [place] % (Auto) 14.1 H Eos % (Auto) 2.3 Baso % (Auto) 0.4 Neut # (Auto) 6.7 Lymph # (Auto) 2.3 [place] # (Auto) 1.6 H Eos # (Auto) 0.3 Baso # (Auto) 0.0 Immature Gran % 2.3 Nucleated RBC % 0.0 Immature Gran # 0.25 Nucleated RBCs # 0.00 Sodium 141 Potassium 3.9 Chloride 108 H Carbon Dioxide 27 Anion Gap 9.9 BUN 9 Creatinine 0.60 GFR Calculation 140 BUN/Creatinine Ratio 15.00 Glucose 202 H POC Glucose 238 H Calculated Osmolality 285.3 Calcium 8.7 Magnesium 1.8 01/09/17 01/09/17 01/08/17 15:26 11:38 20:44 WBC RBC Hgb Hct MCV MCH MCHC RDW Plt Count MPV Neut % (Auto) Lymph % (Auto) [place] % (Auto) Eos % (Auto) Baso % (Auto) Neut # (Auto) Lymph # (Auto) [place] # (Auto) Eos # (Auto) Baso # (Auto) Immature Gran % Nucleated RBC % Immature Gran # Nucleated RBCs # Sodium Potassium Chloride Carbon Dioxide Anion Gap BUN Creatinine GFR Calculation BUN/Creatinine Ratio Glucose POC Glucose 232 H 298 H 231 H Calculated Osmolality Calcium Magnesium DS: Provider Date of admission: 01/04/17 11:03 Primary care physician: Kwesi Turner Attending physician on admission: Tip Brown Consults: 01/05/17 07:17 Consult to Physician [CONS] Routine Comment: possible seizure Consulting Provider: Kojo Rodriguez Consulting Provider Notified: Yes Consult to Specialist Group: Neurology When should Consulting Provider be notified: In am Person Notified: DEEPA Date Notified: 01/06/17 Time Notified: 08:45 01/05/17 19:50 Consult to Dietitian [CONS] Routine Reason for Dietitian: TF-Initiate/Manage 01/09/17 09:33 Consult to Case Mgmt/Social Srvs [CONS] Routine Reason for Case Mgmt/Social Srvs: Discharge Planning Swingbed/SNF/Fpc 01/09/17 09:36 Consult to Physical Therapy [CONS] Routine Reason for Physical Therapy: Evaluate and Treat Start Therapy: Today Discharging clinician: CORAZON Sterling Expected date of discharge: 01/10/17
--- NOTE | 2017-01-10 09:18 | Event Note ---
Clarifying recommended cardiology discharge medications: Atorvastatin 80 mg orally each evening Digoxin 0.125 mg orally at 1300 Diltiazem 120 mg orally 4 times daily Furosemide 40 mg orally daily Losartan 25 mg orally daily Magnesium oxide 400 mg orally twice daily Metoprolol tartrate 100 mg orally 3 times daily Potassium chloride 20 mEq orally daily Pantoprazole 40 mg orally twice daily Rivaroxaban 20 mg orally each evening with supper
[2017-01-10] MEDS: INSULIN LISPRO 100 UNIT/ML SUBCUT SCH ×2 (09:25→12:53)
[2017-01-10] MEDS: TOLTERODINE LA 4 MG CAPSULE PO SCH (09:26)
[2017-01-10] MEDS: MULTIVITAMIN (CENTRUM) TABLET PO SCH (09:27)
[2017-01-10] MEDS: CHOLECALCIFEROL 1,000 UNIT TABLET PO SCH (09:27)
[2017-01-10] MEDS: METOPROLOL TARTRATE 100 MG TABLET PO SCH (09:28)
[2017-01-10] MEDS: LACTULOSE 20 GM/30 ML UDCUP PO PRN (09:28)
[2017-01-10] MEDS: MAGNESIUM OXIDE 400 MG TABLET PO SCH (09:28)
[2017-01-10] MEDS: DILTIAZEM 60 MG TABLET PO SCH ×2 (09:29→12:53)
[2017-01-10] MEDS: PANTOPRAZOLE 40 MG TABLET PO SCH (09:29)
[2017-01-10] MEDS: POTASSIUM CHLORIDE 20 MEQ TABLET PO SCH (09:29)
[2017-01-10] MEDS: FUROSEMIDE 40 MG TABLET PO SCH (09:29)
[2017-01-10] MEDS ORDERED: LOSARTAN 25 MG TABLET PO SCH (09:30)
[2017-01-10] MEDS ORDERED: SODIUM PHOSPHATE ENEMA 133 ML BOTTLE RECTAL ONE (09:45)
[2017-01-10] MEDS: ASPIRIN 325 MG TABLET PO SCH (10:15)
[2017-01-10] MEDS: MAGNESIUM CHLORIDE 64 MG TABLET PO SCH (10:15)
[2017-01-10 12:20] VITALS: BP 150/85
[2017-01-10] MEDS ORDERED: DIGOXIN 0.125 MG TABLET PO SCH (13:00)
== END 2017-01-10 14:24 | disposition swing bed (61) | DRG 208 ==
LOC: EDBD → EDUNIT# → N.EDINP 04:26 → N.ED 04:26 → SUATTDRO 06:42 → N.ICU 15:33 → N.TELEN 01-07 17:10
PROVIDERS: ATTEND Internal Medicine

== ENCOUNTER 2017-12-09 14:31 | Inpatient (IN) ==
[2017-12-09 15:43] LABS: Basophils % 0.4 % (0.0-0.8); Eosinophils # 0.1 10*3/uL (0.0-0.87); Eosinophils % 1.1 % (0.00-10.9); Hematocrit 25.6 VOL% (35.7-47.0); Lymphocytes # 2.2 10*3/uL (1.4-4.0); Mean Corpuscular HGB Conc 30.1 GM/DL (32-36); Mean Corpuscular Hemoglobin 21 PG (27-34); Mean Corpuscular Volume 70.1 FL (87-102); Monocytes # 1.1 10*3/uL (0.11-0.8); Monocytes % 10.6 % (1.7-12.7); Neutrophils # 6.9 10*3/uL (1.4-7.4); Neutrophils % 65.9 % (38.7-73.9); Platelet Count 279 T/CUMM (130-400); Red Blood Count 3.65 MC/CUMM (3.8-5.5); Red Cell Distribution Width 15.9 % (9.3-17.3); White Blood Count 10.5 T/CUMM (4-12)
[2017-12-09 15:44] LABS: Hemoglobin 7.7 GM/DL (12.0-16.0)
[2017-12-09 16:19] LABS: Alanine Aminotransferase 37 U/L (13-56); Albumin 2.9 G/DL (3.4-5.0); Alkaline Phosphatase 129 U/L (45-117); Aspartate Amino Transferase 30 U/L (0-37); Blood Urea Nitrogen 34 MG/DL (7-18); Calcium 8.2 MG/DL (8.5-10.1); Glucose 383 MG/DL (74-106); Osmolality,Calculated 293.1 MOS/KG (273-304); Sodium 135 MMOL/L (136-145); Total Protein 6.1 G/DL (6.4-8.3); Troponin I Only < 0.015 NG/ML (0.00-0.045)
[2017-12-09] MEDS ORDERED: DOCUSATE SODIUM 100 MG CAPSULE PO PRN (17:43)
[2017-12-09] MEDS ORDERED: ZALEPLON 5 MG CAPSULE PO PRN (17:43)
[2017-12-09] MEDS ORDERED: diphenhydrAMINE CAP 25 MG CAPSULE PO PRN (17:43)
[2017-12-09] MEDS ORDERED: MAGNESIUM SULF RIDER 4 GM in PREMIX 1 EACH IV PRN (17:43)
[2017-12-09] MEDS ORDERED: guaiFENesin/DM ER 600-30 MG TABLET PO PRN (17:43)
[2017-12-09] MEDS ORDERED: MAGNESIUM SULF RIDER 2 GM in PREMIX 1 EACH IV PRN (17:43)
[2017-12-09] MEDS ORDERED: ONDANSETRON 4 MG/2 ML VIAL IV PRN (17:43)
[2017-12-09] MEDS ORDERED: DEXTROSE 50% 25 GM/50 ML VIAL IV PRN (17:49)
[2017-12-09] MEDS ORDERED: GLUCAGON 1 MG VIAL IM PRN (17:49)
[2017-12-09 18:08] LABS: Basophils % 0.3 % (0.0-0.8); Eosinophils # 0.1 10*3/uL (0.0-0.87); Eosinophils % 0.7 % (0.00-10.9); Hemoglobin 7.7 GM/DL (12.0-16.0); Immature Granulocytes % 0.4 %; Immature Granulocytes Absolute 0.04 #; Lymphocytes # 2.8 10*3/uL (1.4-4.0); Lymphocytes % 26.5 % (21.3-54.2); Mean Corpuscular HGB Conc 28.5 GM/DL (32-36); Mean Corpuscular Hemoglobin 21 PG (27-34); Mean Corpuscular Volume 73.8 FL (87-102); Mean Platelet Volume 10.8 FL (9.6-12.0); Monocytes # 1.1 10*3/uL (0.11-0.8); Monocytes % 10.9 % (1.7-12.7); NRBC # 0.02 10*3/uL; Neutrophils # 6.4 10*3/uL (1.4-7.4); Neutrophils % 61.2 % (38.7-73.9); Platelet Count 271 T/CUMM (130-400); Red Blood Count 3.66 MC/CUMM (3.8-5.5); White Blood Count 10.4 T/CUMM (4-12)
[2017-12-09] MEDS ORDERED: ALBUTEROL 2.5 MG/3 ML NEB RESP TX PRN (18:11)
[2017-12-09] MEDS ORDERED: MELOXICAM 7.5 MG TABLET PO PRN (18:11)
[2017-12-09 18:41] LABS: Folate > 24.0 NG/ML (5.4-24.0); Vitamin B12 529 PG/ML (211-911)
[2017-12-09] MEDS: MAGNESIUM OXIDE 400 MG TABLET PO SCH (21:35)
[2017-12-09] MEDS: ATORVASTATIN 80 MG TABLET PO SCH (21:35)
[2017-12-09] MEDS: INSULIN GLARGINE 100 UNIT/ML SUBCUT SCH (21:37)
[2017-12-09] MEDS: INSULIN LISPRO 100 UNIT/ML SUBCUT SCH (21:37)
[2017-12-09 23:12] LABS: Sedimentation Rate-Westergren 48 MM/HR (0-30)
[2017-12-10 05:23] LABS: Basophils % 0.5 % (0.0-0.8); Eosinophils # 0.2 10*3/uL (0.0-0.87); Eosinophils % 2.2 % (0.00-10.9); Hematocrit 24.2 VOL% (35.7-47.0); Hemoglobin 7.2 GM/DL (12.0-16.0); Immature Granulocytes % 0.3 %; Immature Granulocytes Absolute 0.03 #; Lymphocytes % 34.5 % (21.3-54.2); Mean Corpuscular HGB Conc 29.8 GM/DL (32-36); Mean Corpuscular Hemoglobin 21 PG (27-34); Mean Corpuscular Volume 71.6 FL (87-102); Mean Platelet Volume 11.1 FL (9.6-12.0); Monocytes % 11.6 % (1.7-12.7); Neutrophils # 4.4 10*3/uL (1.4-7.4); Neutrophils % 50.9 % (38.7-73.9); Platelet Count 265 T/CUMM (130-400); Red Blood Count 3.38 MC/CUMM (3.8-5.5); Red Cell Distribution Width 15.8 % (9.3-17.3); White Blood Count 8.6 T/CUMM (4-12)
[2017-12-10 06:20] LABS: Calcium 8.3 MG/DL (8.5-10.1); Osmolality,Calculated 289.7 MOS/KG (273-304); Potassium 3.6 MMOL/L (3.5-5.1); Risk Ratio 2.29; Thyroid Stimulating Hormone 0.491 uIU/ml (0.358-3.74); VLDL CHOLESTEROL 21.4 MG/DL
[2017-12-10] MEDS: ASPIRIN CHEW 81 MG TABLET PO SCH (09:13)
[2017-12-10] MEDS: MAGNESIUM OXIDE 400 MG TABLET PO SCH ×2 (09:13→21:01)
[2017-12-10] MEDS: CHOLECALCIFEROL 1,000 UNIT TABLET PO SCH (09:13)
[2017-12-10] MEDS: FUROSEMIDE 40 MG TABLET PO SCH ×2 (09:13→12:00)
[2017-12-10] MEDS: MULTIVITAMIN (CENTRUM) TABLET PO SCH (09:13)
[2017-12-10] MEDS: INSULIN LISPRO 100 UNIT/ML SUBCUT SCH ×4 (09:14→21:01)
[2017-12-10] MEDS: PANTOPRAZOLE 40 MG TABLET PO SCH (09:14)
[2017-12-10] MEDS: LOSARTAN 25 MG TABLET PO SCH (09:14)
[2017-12-10] MEDS: TOLTERODINE LA 4 MG CAPSULE PO SCH ×2 (09:14→09:18)
[2017-12-10] MEDS: POTASSIUM CHLORIDE 20 MEQ TABLET PO SCH ×2 (09:14→09:18)
[2017-12-10 11:41] LABS: % Iron Saturation 2.8 % (18-50)
[2017-12-10] MEDS: LACTULOSE 20 GM/30 ML UDCUP PO PRN (12:00)
[2017-12-10 12:06] LABS: Hemoglobin A1 (Alkaline) 98.5 % (96.5-98.5); Hemoglobin A2 (Alkaline) 1.5 % (1.5-3.5)
[2017-12-10] MEDS: FERROUS GLUCONATE 324 MG TABLET PO SCH ×2 (14:58→21:01)
[2017-12-10] MEDS ORDERED: SODIUM CHLORIDE 0.9% 1,000 ML IV PRN (15:45)
[2017-12-10] MEDS: INSULIN GLARGINE 100 UNIT/ML SUBCUT SCH (21:00)
[2017-12-10] MEDS: ATORVASTATIN 80 MG TABLET PO SCH (21:01)
[2017-12-11 05:04] LABS: Basophils % 0.3 % (0.0-0.8); Eosinophils # 0.2 10*3/uL (0.0-0.87); Eosinophils % 2.3 % (0.00-10.9); Hematocrit 30.8 VOL% (35.7-47.0); Hemoglobin 9.3 GM/DL (12.0-16.0); Immature Granulocytes % 0.4 %; Immature Granulocytes Absolute 0.04 #; Lymphocytes # 2.3 10*3/uL (1.4-4.0); Lymphocytes % 24.6 % (21.3-54.2); Mean Corpuscular HGB Conc 30.2 GM/DL (32-36); Mean Corpuscular Hemoglobin 22 PG (27-34); Mean Corpuscular Volume 73.2 FL (87-102); Mean Platelet Volume 10.7 FL (9.6-12.0); Monocytes # 1.1 10*3/uL (0.11-0.8); Monocytes % 11.6 % (1.7-12.7); NRBC # 0.02 10*3/uL; Neutrophils # 5.6 10*3/uL (1.4-7.4); Neutrophils % 60.8 % (38.7-73.9); Platelet Count 255 T/CUMM (130-400); Red Blood Count 4.21 MC/CUMM (3.8-5.5); Red Cell Distribution Width 16.9 % (9.3-17.3); White Blood Count 9.3 T/CUMM (4-12)
[2017-12-11 05:32] LABS: Calcium 7.9 MG/DL (8.5-10.1); Osmolality,Calculated 286.1 MOS/KG (273-304); Potassium 3.2 MMOL/L (3.5-5.1)
[2017-12-11] MEDS: POTASSIUM CHLORIDE 20 MEQ TABLET PO PRN ×2 (05:55→17:11)
[2017-12-11] MEDS: CHOLECALCIFEROL 1,000 UNIT TABLET PO SCH (08:22)
[2017-12-11] MEDS: FUROSEMIDE 40 MG TABLET PO SCH ×2 (08:22→11:57)
[2017-12-11] MEDS: MULTIVITAMIN (CENTRUM) TABLET PO SCH (08:23)
[2017-12-11] MEDS: POTASSIUM CHLORIDE 20 MEQ TABLET PO SCH (08:23)
[2017-12-11] MEDS: ASPIRIN CHEW 81 MG TABLET PO SCH (08:23)
[2017-12-11] MEDS: FERROUS GLUCONATE 324 MG TABLET PO SCH ×3 (08:23→20:39)
[2017-12-11] MEDS: PANTOPRAZOLE 40 MG TABLET PO SCH (08:23)
[2017-12-11] MEDS: LOSARTAN 25 MG TABLET PO SCH (08:23)
[2017-12-11] MEDS: LACTULOSE 20 GM/30 ML UDCUP PO PRN (08:23)
[2017-12-11] MEDS: INSULIN LISPRO 100 UNIT/ML SUBCUT SCH ×4 (08:35→20:39)
[2017-12-11] MEDS: TOLTERODINE LA 4 MG CAPSULE PO SCH (09:25)
[2017-12-11] MEDS: MAGNESIUM OXIDE 400 MG TABLET PO SCH ×2 (09:26→20:38)
[2017-12-11] MEDS ORDERED: BISACODYL 5 MG TABLET PO ONE (12:00)
[2017-12-11] MEDS: amLODIPine 5 MG TABLET PO SCH (14:47)
[2017-12-11] MEDS ORDERED: POLYETHYLENE GLYCOL POWDER 255 GM BOTTLE PO ONE (15:00)
[2017-12-11] MEDS: ATORVASTATIN 80 MG TABLET PO SCH (20:38)
[2017-12-11] MEDS: INSULIN GLARGINE 100 UNIT/ML SUBCUT SCH (20:39)
[2017-12-11] MEDS ORDERED: MAGNESIUM CITRATE 300 ML BOTTLE PO ONE (21:00)
[2017-12-12 05:53] LABS: Basophils % 0.4 % (0.0-0.8); Eosinophils # 0.2 10*3/uL (0.0-0.87); Eosinophils % 2.1 % (0.00-10.9); Hematocrit 33.4 VOL% (35.7-47.0); Immature Granulocytes % 0.6 %; Immature Granulocytes Absolute 0.07 #; Lymphocytes # 2.8 10*3/uL (1.4-4.0); Lymphocytes % 24.7 % (21.3-54.2); Mean Corpuscular HGB Conc 29.9 GM/DL (32-36); Mean Corpuscular Hemoglobin 22 PG (27-34); Mean Corpuscular Volume 74.2 FL (87-102); Monocytes # 1.3 10*3/uL (0.11-0.8); Monocytes % 11.1 % (1.7-12.7); Neutrophils # 6.9 10*3/uL (1.4-7.4); Neutrophils % 61.1 % (38.7-73.9); Platelet Count 259 T/CUMM (130-400); White Blood Count 11.3 T/CUMM (4-12)
[2017-12-12] MEDS: ACETAMINOPHEN 325 MG TABLET PO PRN ×2 (06:05→13:49)
[2017-12-12 06:18] LABS: Calcium 8.4 MG/DL (8.5-10.1); Osmolality,Calculated 279.1 MOS/KG (273-304); Potassium 3.2 MMOL/L (3.5-5.1)
[2017-12-12] MEDS: INSULIN LISPRO 100 UNIT/ML SUBCUT SCH ×3 (09:05→17:09)
[2017-12-12] MEDS ORDERED: GLUCAGON 1 MG VIAL IM PRN (10:33)
[2017-12-12] MEDS ORDERED: DEXTROSE 50% 25 GM/50 ML VIAL IV PRN (10:33)
[2017-12-12] MEDS ORDERED: LIDOCAINE 1% 5 ML VIAL ONE (11:44)
[2017-12-12] MEDS ORDERED: PROPOFOL 200 MG/20 ML VIAL IV ONE (11:44)
[2017-12-12] MEDS: TOLTERODINE LA 4 MG CAPSULE PO SCH (13:45)
[2017-12-12] MEDS: LOSARTAN 25 MG TABLET PO SCH (13:45)
[2017-12-12] MEDS: ASPIRIN CHEW 81 MG TABLET PO SCH (13:45)
[2017-12-12] MEDS: MULTIVITAMIN (CENTRUM) TABLET PO SCH (13:45)
[2017-12-12] MEDS: MAGNESIUM OXIDE 400 MG TABLET PO SCH (13:46)
[2017-12-12] MEDS: PANTOPRAZOLE 40 MG TABLET PO SCH (13:46)
[2017-12-12] MEDS: amLODIPine 5 MG TABLET PO SCH (13:46)
[2017-12-12] MEDS: FERROUS GLUCONATE 324 MG TABLET PO SCH ×2 (13:46→15:51)
[2017-12-12] MEDS: FUROSEMIDE 40 MG TABLET PO SCH ×2 (13:46→13:47)
[2017-12-12] MEDS: POTASSIUM CHLORIDE 20 MEQ TABLET PO SCH (13:46)
[2017-12-12] MEDS: CHOLECALCIFEROL 1,000 UNIT TABLET PO SCH (13:47)
[2017-12-12] MEDS ORDERED: LOSARTAN 50 MG TABLET PO SCH (15:43)
[2017-12-12] MEDS ORDERED: POTASSIUM CHLORIDE 20 MEQ TABLET PO SCH (15:45)
[2017-12-12 16:51] VITALS: BP 168/79
[2017-12-13] MEDS ORDERED: DILTIAZEM CD 120 MG CAPSULE PO SCH (09:00)
== END 2017-12-12 17:39 | disposition home or self-care (01) | DRG 812 ==
LOC: EDUNIT# → EDBD → N.ED 14:31 → N.EDINP 14:31 → N.TELEN 17:10
PROVIDERS: ADMIT Internal Medicine Clinical Cardiac Electrophysiology; ATTEND Internal Medicine Clinical Cardiac Electrophysiology

== ENCOUNTER 2020-12-03 19:50 | Inpatient (IN) ==
[2020-12-03 20:16] LABS: Basophils # 0.1 10*3/uL (0.0-0.2); Basophils % 0.3 % (0.0-0.8); Eosinophils # 0.1 10*3/uL (0.0-0.87); Eosinophils % 0.6 % (0.00-10.9); Hematocrit 33.3 VOL% (35.7-47.0); Hemoglobin 10.8 GM/DL (12.0-16.0); Immature Granulocytes % 1.2 %; Immature Granulocytes Absolute 0.19 #; Lymphocytes # 0.4 10*3/uL (1.4-4.0); Lymphocytes % 2.6 % (21.3-54.2); Mean Corpuscular HGB Conc 32.4 GM/DL (32-36); Mean Corpuscular Volume 77.1 FL (87-102); Mean Platelet Volume 9.5 FL (9.6-12.0); Monocytes % 4.1 % (1.7-12.7); Neutrophils % 91.2 % (38.7-73.9); Platelet Count 374 T/CUMM (130-400); Red Blood Count 4.32 MC/CUMM (3.8-5.5); Red Cell Distribution Width 14.8 % (9.3-17.3)
[2020-12-03] MEDS ORDERED: ACETAMINOPHEN 500 MG TABLET PO STA (20:19)
[2020-12-03] MEDS ORDERED: SODIUM CHLORIDE 0.9% 500 ML IV STA (20:19)
[2020-12-03] MEDS ORDERED: ONDANSETRON 4 MG/2 ML VIAL IV STA (20:20)
[2020-12-03 20:30] LABS: Alanine Aminotransferase 30 U/L (13-56); Albumin 2.7 G/DL (3.4-5.0); Alkaline Phosphatase 216 U/L (45-117); Aspartate Amino Transferase 19 U/L (0-37); Blood Urea Nitrogen 25 MG/DL (7-18); Calcium 9.7 MG/DL (8.5-10.1); Carbon Dioxide 22 MMOL/L (21-32); Estimated Glom Filtration Rate 55 ML/MIN; Glucose 314 MG/DL (74-106); Osmolality,Calculated 281.4 MOS/KG (273-304); Potassium 4.6 MMOL/L (3.5-5.1); Sodium 133 MMOL/L (136-145); Total Protein 7.1 G/DL (6.4-8.2)
[2020-12-03] MEDS ORDERED: SODIUM CHLORIDE 0.9% IV ONE (20:31)
[2020-12-03] MEDS ORDERED: VANCOMYCIN INJ 1,000 MG in SODIUM CHLORIDE 0.9% 250 ML IV STA (20:32)
[2020-12-03 21:07] LABS: Partial Thromboplastin Time 24.5 SECS (23.9-33.8)
[2020-12-03] MEDS ORDERED: LEVOFLOXACIN INJ 750 MG in PREMIX 1 EACH IV STA (21:15)
[2020-12-03 21:41] LABS: Bacteria,Urine Occasional /HPF (Few); Bilirubin,Urine Negative (Negative); Blood, Urine Negative (Negative); Glucose,Urine (UA) >=500 mg/dL (Negative); Ketones,Urine Negative (Negative); Mucus,Urine Occasional /LPF (Occasional); Nitrite,Urine Negative (Negative); Protein,Urine Negative; Squamous Epithelial Cell,Urine Occasional /HPF (0-10); Urine Appearance Slightly Hazy (Clear); Urine Color Yellow (Yellow); Urine Specific Gravity 1.039 (1.001-1.035); Urine Urobilinogen < 2.0 EU/DL (0.2-1.0); WBC,Urine 76 /HPF (0-6)
[2020-12-03] MEDS ORDERED: MEROPENEM 500 MG in SODIUM CHLORIDE 0.9% 100 ML IV SCH (23:00)
[2020-12-04] MEDS ORDERED: DOCUSATE SODIUM 100 MG CAPSULE PO PRN (00:08)
[2020-12-04] MEDS ORDERED: ONDANSETRON 4 MG/2 ML VIAL IV PRN (00:08)
[2020-12-04] MEDS ORDERED: ACETAMINOPHEN 325 MG TABLET PO PRN (00:08)
[2020-12-04] MEDS ORDERED: DEXTROSE 50% 25 GM/50 ML VIAL IV PRN (00:08)
[2020-12-04] MEDS ORDERED: GLUCAGON 1 MG VIAL IM PRN (00:08)
[2020-12-04] MEDS ORDERED: MAGNESIUM SULF RIDER 4 GM in PREMIX 1 EACH IV PRN (00:38)
[2020-12-04] MEDS: INSULIN LISPRO 100 UNIT/ML SUBCUT SCH ×5 (02:00→22:07)
[2020-12-04 04:41] LABS: Platelet Estimate Adequate; Polychromasia Few; Spherocytes Few
[2020-12-04] MEDS: SODIUM CHLORIDE 0.9% 1,000 ML IV SCH ×2 (04:59→14:25)
[2020-12-04 05:06] LABS: Basophils % 0.1 % (0.0-0.8); Eosinophils # 0.1 10*3/uL (0.0-0.87); Eosinophils % 0.6 % (0.00-10.9); Hematocrit 30.5 VOL% (35.7-47.0); Hemoglobin 9.5 GM/DL (12.0-16.0); Immature Granulocytes % 0.8 %; Immature Granulocytes Absolute 0.13 #; Lymphocytes # 1.1 10*3/uL (1.4-4.0); Lymphocytes % 6.4 % (21.3-54.2); Mean Corpuscular HGB Conc 31.1 GM/DL (32-36); Mean Corpuscular Volume 80.7 FL (87-102); Mean Platelet Volume 9.5 FL (9.6-12.0); Monocytes % 5.4 % (1.7-12.7); Neutrophils % 86.7 % (38.7-73.9); Platelet Count 343 T/CUMM (130-400); Red Blood Count 3.78 MC/CUMM (3.8-5.5); White Blood Count 16.5 T/CUMM (4-12)
[2020-12-04 05:29] LABS: Calcium 8.6 MG/DL (8.5-10.1); Potassium 4.5 MMOL/L (3.5-5.1)
[2020-12-04 05:35] LABS: Band Neutrophils 5 % (0-10); Hypochromasia 1+; Lymphocytes 2 % (20-55); Microcytosis 1+; Platelet Estimate Adequate; Segmented Neutrophils 91 % (50-85); Total Cells Counted 100
[2020-12-04] MEDS: MULTIVITAMIN (CENTRUM) TABLET PO SCH (08:42)
[2020-12-04] MEDS: CHOLECALCIFEROL 1,000 UNIT TABLET PO SCH (08:42)
[2020-12-04] MEDS: MAGNESIUM OXIDE 400 MG TABLET PO SCH ×2 (08:42→22:06)
[2020-12-04] MEDS: ENOXAPARIN 40 MG/0.4 ML SYRINGE SUBCUT SCH (08:43)
[2020-12-04] MEDS: POTASSIUM CHLORIDE 20 MEQ TABLET PO SCH (08:43)
[2020-12-04] MEDS: MAGNESIUM SULF RIDER 2 GM in PREMIX 1 EACH IV PRN ×2 (08:43→09:50)
[2020-12-04] MEDS: ASPIRIN CHEW 81 MG TABLET PO SCH (08:43)
[2020-12-04] MEDS: carvediloL 12.5 MG TABLET PO SCH ×2 (08:43→16:12)
[2020-12-04] MEDS ORDERED: MEROPENEM 2,000 MG in SODIUM CHLORIDE 0.9% 100 ML IV SCH (09:00)
[2020-12-04] MEDS: MEROPENEM 500 MG in SODIUM CHLORIDE 0.9% 100 ML IV SCH (16:51)
[2020-12-04] MEDS: ATORVASTATIN 80 MG TABLET PO SCH (22:06)
[2020-12-04] MEDS: INSULIN GLARGINE 100 UNIT/ML SUBCUT SCH (22:07)
[2020-12-05] MEDS: MEROPENEM 500 MG in SODIUM CHLORIDE 0.9% 100 ML IV SCH ×3 (01:37→17:02)
[2020-12-05 05:55] LABS: Basophils % 0.3 % (0.0-0.8); Eosinophils # 0.6 10*3/uL (0.0-0.87); Eosinophils % 4.8 % (0.00-10.9); Hematocrit 31.3 VOL% (35.7-47.0); Hemoglobin 9.7 GM/DL (12.0-16.0); Immature Granulocytes % 1.2 %; Immature Granulocytes Absolute 0.14 #; Lymphocytes # 2.4 10*3/uL (1.4-4.0); Lymphocytes % 20.7 % (21.3-54.2); Mean Corpuscular Volume 81.3 FL (87-102); Mean Platelet Volume 9.6 FL (9.6-12.0); Monocytes % 9.5 % (1.7-12.7); Neutrophils % 63.5 % (38.7-73.9); Platelet Count 356 T/CUMM (130-400); Red Blood Count 3.85 MC/CUMM (3.8-5.5); Red Cell Distribution Width 15.6 % (9.3-17.3); White Blood Count 11.6 T/CUMM (4-12)
[2020-12-05 06:08] LABS: % Iron Saturation 16.8 % (18-50); Calcium 9.2 MG/DL (8.5-10.1); Ferritin 85.1 ng/ml (8-252); Osmolality,Calculated 282.1 MOS/KG (273-304); Potassium 4.4 MMOL/L (3.5-5.1)
[2020-12-05 06:38] LABS: Folate 18.9 NG/ML (5.38-24.0); Vitamin B12 252 PG/ML (211-911)
[2020-12-05] MEDS: SODIUM CHLORIDE 0.9% 1,000 ML IV SCH (07:30)
[2020-12-05 07:41] LABS: Sedimentation Rate-Westergren 58 MM/HR (0-30)
[2020-12-05 08:37] LABS: Hemoglobin A1 (Alkaline) 96.9 % (96.5-98.5); Hemoglobin A2 (Alkaline) 3.1 % (1.5-3.5)
[2020-12-05] MEDS: CHOLECALCIFEROL 1,000 UNIT TABLET PO SCH (08:58)
[2020-12-05] MEDS: INSULIN LISPRO 100 UNIT/ML SUBCUT SCH ×4 (08:58→20:36)
[2020-12-05] MEDS: carvediloL 12.5 MG TABLET PO SCH ×2 (08:58→17:01)
[2020-12-05] MEDS: ENOXAPARIN 40 MG/0.4 ML SYRINGE SUBCUT SCH (08:58)
[2020-12-05] MEDS: ASPIRIN CHEW 81 MG TABLET PO SCH (08:58)
[2020-12-05] MEDS: POTASSIUM CHLORIDE 20 MEQ TABLET PO SCH (08:58)
[2020-12-05] MEDS: MULTIVITAMIN (CENTRUM) TABLET PO SCH (08:58)
[2020-12-05] MEDS: MAGNESIUM OXIDE 400 MG TABLET PO SCH ×2 (08:58→20:35)
[2020-12-05] MEDS: ATORVASTATIN 80 MG TABLET PO SCH (20:35)
[2020-12-05] MEDS: INSULIN GLARGINE 100 UNIT/ML SUBCUT SCH (20:37)
[2020-12-06] MEDS: MEROPENEM 500 MG in SODIUM CHLORIDE 0.9% 100 ML IV SCH ×3 (02:34→16:15)
[2020-12-06 05:54] LABS: Calcium 9.4 MG/DL (8.5-10.1); Osmolality,Calculated 282.8 MOS/KG (273-304); Potassium 4.4 MMOL/L (3.5-5.1)
[2020-12-06] MEDS: SODIUM CHLORIDE 0.9% 1,000 ML IV SCH ×3 (08:31→22:50)
[2020-12-06] MEDS: CYANOCOBALAMIN 500 MCG TABLET PO SCH (08:35)
[2020-12-06] MEDS: MULTIVITAMIN (CENTRUM) TABLET PO SCH (08:35)
[2020-12-06] MEDS: MAGNESIUM OXIDE 400 MG TABLET PO SCH ×2 (08:35→20:46)
[2020-12-06] MEDS: CHOLECALCIFEROL 1,000 UNIT TABLET PO SCH (08:35)
[2020-12-06] MEDS: ASPIRIN CHEW 81 MG TABLET PO SCH (08:35)
[2020-12-06] MEDS: carvediloL 12.5 MG TABLET PO SCH ×2 (08:35→16:26)
[2020-12-06] MEDS: POTASSIUM CHLORIDE 20 MEQ TABLET PO SCH (08:35)
[2020-12-06] MEDS: INSULIN LISPRO 100 UNIT/ML SUBCUT SCH ×4 (08:36→20:47)
[2020-12-06] MEDS: ENOXAPARIN 40 MG/0.4 ML SYRINGE SUBCUT SCH (12:11)
[2020-12-06] MEDS ORDERED: TUBERCULIN SKIN TEST 0.1 ML SYRINGE INTRADERM ONE (13:00)
[2020-12-06] MEDS: ACETAMINOPHEN 500 MG TABLET PO SCH ×2 (16:16→20:47)
[2020-12-06] MEDS: ATORVASTATIN 80 MG TABLET PO SCH (20:46)
[2020-12-06] MEDS: INSULIN GLARGINE 100 UNIT/ML SUBCUT SCH (20:47)
[2020-12-07] MEDS: SODIUM CHLORIDE 0.9% 1,000 ML IV SCH ×2 (00:31→17:35)
[2020-12-07] MEDS: MEROPENEM 500 MG in SODIUM CHLORIDE 0.9% 100 ML IV SCH ×3 (00:31→17:32)
[2020-12-07 05:39] LABS: Calcium 9.5 MG/DL (8.5-10.1); Osmolality,Calculated 283.4 MOS/KG (273-304); Potassium 4.3 MMOL/L (3.5-5.1)
[2020-12-07] MEDS: POTASSIUM CHLORIDE 20 MEQ TABLET PO SCH (09:00)
[2020-12-07] MEDS: MULTIVITAMIN (CENTRUM) TABLET PO SCH (09:00)
[2020-12-07] MEDS: ASPIRIN CHEW 81 MG TABLET PO SCH (09:00)
[2020-12-07] MEDS: ACETAMINOPHEN 500 MG TABLET PO SCH ×4 (09:00→20:28)
[2020-12-07] MEDS: INSULIN LISPRO 100 UNIT/ML SUBCUT SCH ×4 (09:00→20:29)
[2020-12-07] MEDS: MAGNESIUM OXIDE 400 MG TABLET PO SCH ×2 (09:00→20:29)
[2020-12-07] MEDS: carvediloL 12.5 MG TABLET PO SCH ×2 (09:00→17:32)
[2020-12-07] MEDS: CYANOCOBALAMIN 500 MCG TABLET PO SCH (09:00)
[2020-12-07] MEDS: CHOLECALCIFEROL 1,000 UNIT TABLET PO SCH (09:00)
[2020-12-07] MEDS: ENOXAPARIN 40 MG/0.4 ML SYRINGE SUBCUT SCH (09:03)
[2020-12-07] MEDS: DICLOFENAC 1% GEL 100 GM TUBE TOP SCH ×2 (16:03→20:29)
[2020-12-07] MEDS ORDERED: ALBUTEROL 2.5 MG/3 ML NEB RESP TX PRN (19:09)
[2020-12-07] MEDS: ATORVASTATIN 80 MG TABLET PO SCH (20:29)
[2020-12-07] MEDS: INSULIN GLARGINE 100 UNIT/ML SUBCUT SCH (20:29)
[2020-12-08] MEDS: MEROPENEM 500 MG in SODIUM CHLORIDE 0.9% 100 ML IV SCH ×3 (00:18→16:18)
[2020-12-08 06:15] LABS: Calcium 9.6 MG/DL (8.5-10.1); Osmolality,Calculated 282.3 MOS/KG (273-304); Potassium 4.5 MMOL/L (3.5-5.1)
[2020-12-08] MEDS: INSULIN LISPRO 100 UNIT/ML SUBCUT SCH ×4 (07:46→21:16)
[2020-12-08] MEDS: ENOXAPARIN 40 MG/0.4 ML SYRINGE SUBCUT SCH (08:51)
[2020-12-08] MEDS: carvediloL 12.5 MG TABLET PO SCH ×2 (08:52→16:19)
[2020-12-08] MEDS: ASPIRIN CHEW 81 MG TABLET PO SCH (08:52)
[2020-12-08] MEDS: MAGNESIUM OXIDE 400 MG TABLET PO SCH ×2 (08:52→21:15)
[2020-12-08] MEDS: MULTIVITAMIN (CENTRUM) TABLET PO SCH (08:52)
[2020-12-08] MEDS: CHOLECALCIFEROL 1,000 UNIT TABLET PO SCH (08:52)
[2020-12-08] MEDS: POTASSIUM CHLORIDE 20 MEQ TABLET PO SCH (08:53)
[2020-12-08] MEDS: ACETAMINOPHEN 500 MG TABLET PO SCH ×4 (08:53→21:15)
[2020-12-08] MEDS: CYANOCOBALAMIN 500 MCG TABLET PO SCH (08:53)
[2020-12-08] MEDS: DICLOFENAC 1% GEL 100 GM TUBE TOP SCH ×3 (08:54→21:16)
[2020-12-08] MEDS: SODIUM CHLORIDE 0.9% 1,000 ML IV SCH (08:54)
[2020-12-08] MEDS: FUROSEMIDE 80 MG TABLET PO SCH (12:02)
[2020-12-08] MEDS: FUROSEMIDE 40 MG TABLET PO SCH (16:13)
[2020-12-08] MEDS: INSULIN GLARGINE 100 UNIT/ML SUBCUT SCH (21:15)
[2020-12-08] MEDS: ATORVASTATIN 80 MG TABLET PO SCH (21:16)
[2020-12-09] MEDS: MEROPENEM 500 MG in SODIUM CHLORIDE 0.9% 100 ML IV SCH ×3 (01:27→16:26)
[2020-12-09 05:28] LABS: Calcium 9.4 MG/DL (8.5-10.1); Osmolality,Calculated 282.4 MOS/KG (273-304); Potassium 3.8 MMOL/L (3.5-5.1)
[2020-12-09] MEDS: INSULIN LISPRO 100 UNIT/ML SUBCUT SCH ×4 (08:19→21:52)
[2020-12-09] MEDS: ASPIRIN CHEW 81 MG TABLET PO SCH (08:19)
[2020-12-09] MEDS: MAGNESIUM OXIDE 400 MG TABLET PO SCH ×2 (08:19→21:52)
[2020-12-09] MEDS: ENOXAPARIN 40 MG/0.4 ML SYRINGE SUBCUT SCH (08:19)
[2020-12-09] MEDS: MULTIVITAMIN (CENTRUM) TABLET PO SCH (08:20)
[2020-12-09] MEDS: carvediloL 12.5 MG TABLET PO SCH ×2 (08:20→16:35)
[2020-12-09] MEDS: ACETAMINOPHEN 500 MG TABLET PO SCH ×4 (08:21→21:53)
[2020-12-09] MEDS: CHOLECALCIFEROL 1,000 UNIT TABLET PO SCH (08:21)
[2020-12-09] MEDS: DICLOFENAC 1% GEL 100 GM TUBE TOP SCH ×3 (08:21→21:54)
[2020-12-09] MEDS: POTASSIUM CHLORIDE 20 MEQ TABLET PO SCH (08:21)
[2020-12-09] MEDS: CYANOCOBALAMIN 500 MCG TABLET PO SCH (08:21)
[2020-12-09] MEDS: FUROSEMIDE 80 MG TABLET PO SCH (08:22)
[2020-12-09] MEDS: ASCORBIC ACID 500 MG TABLET PO SCH ×2 (08:52→21:53)
[2020-12-09] MEDS: METHENAMINE HIPPURATE 1 GM TABLET PO SCH ×2 (08:52→21:52)
[2020-12-09] MEDS: FUROSEMIDE 40 MG TABLET PO SCH (16:25)
[2020-12-09] MEDS: INSULIN GLARGINE 100 UNIT/ML SUBCUT SCH (21:52)
[2020-12-09] MEDS: ATORVASTATIN 80 MG TABLET PO SCH (21:53)
[2020-12-10] MEDS: MEROPENEM 500 MG in SODIUM CHLORIDE 0.9% 100 ML IV SCH ×3 (02:06→16:02)
[2020-12-10 06:13] LABS: Osmolality,Calculated 282.8 MOS/KG (273-304); Potassium 3.4 MMOL/L (3.5-5.1)
[2020-12-10] MEDS: INSULIN LISPRO 100 UNIT/ML SUBCUT SCH ×4 (07:35→21:49)
[2020-12-10] MEDS: METHENAMINE HIPPURATE 1 GM TABLET PO SCH ×2 (08:05→21:47)
[2020-12-10] MEDS: DICLOFENAC 1% GEL 100 GM TUBE TOP SCH ×3 (08:05→21:49)
[2020-12-10] MEDS: CYANOCOBALAMIN 500 MCG TABLET PO SCH (08:05)
[2020-12-10] MEDS: ENOXAPARIN 40 MG/0.4 ML SYRINGE SUBCUT SCH (08:05)
[2020-12-10] MEDS: ACETAMINOPHEN 500 MG TABLET PO SCH ×4 (08:05→21:47)
[2020-12-10] MEDS: ASPIRIN CHEW 81 MG TABLET PO SCH (08:06)
[2020-12-10] MEDS: ASCORBIC ACID 500 MG TABLET PO SCH ×2 (08:06→21:48)
[2020-12-10] MEDS: MULTIVITAMIN (CENTRUM) TABLET PO SCH (08:06)
[2020-12-10] MEDS: FUROSEMIDE 80 MG TABLET PO SCH (08:06)
[2020-12-10] MEDS: POTASSIUM CHLORIDE 20 MEQ TABLET PO SCH (08:06)
[2020-12-10] MEDS: CHOLECALCIFEROL 1,000 UNIT TABLET PO SCH (08:06)
[2020-12-10] MEDS: MAGNESIUM OXIDE 400 MG TABLET PO SCH ×2 (08:06→21:47)
[2020-12-10] MEDS ORDERED: hydrALAZINE 25 MG TABLET PO SCH (09:00)
[2020-12-10] MEDS: carvediloL 3.125 MG TABLET PO SCH ×2 (09:09→21:47)
[2020-12-10] MEDS ORDERED: POTASSIUM CHLORIDE 20 MEQ TABLET PO ONE (12:44)
[2020-12-10] MEDS: FUROSEMIDE 40 MG TABLET PO SCH (16:03)
[2020-12-10] MEDS ORDERED: hydrALAZINE 20 MG/1 ML VIAL IV PRN (17:02)
[2020-12-10] MEDS: INSULIN GLARGINE 100 UNIT/ML SUBCUT SCH (21:46)
[2020-12-10] MEDS: ATORVASTATIN 80 MG TABLET PO SCH (21:47)
[2020-12-11] MEDS: MEROPENEM 500 MG in SODIUM CHLORIDE 0.9% 100 ML IV SCH ×3 (02:04→17:12)
[2020-12-11 05:32] LABS: Calcium 9.3 MG/DL (8.5-10.1); Osmolality,Calculated 280.3 MOS/KG (273-304)
[2020-12-11] MEDS: INSULIN LISPRO 100 UNIT/ML SUBCUT SCH ×4 (07:39→20:51)
[2020-12-11] MEDS: ASCORBIC ACID 500 MG TABLET PO SCH ×2 (09:01→20:49)
[2020-12-11] MEDS: METHENAMINE HIPPURATE 1 GM TABLET PO SCH ×2 (09:02→20:49)
[2020-12-11] MEDS: ENOXAPARIN 40 MG/0.4 ML SYRINGE SUBCUT SCH (09:02)
[2020-12-11] MEDS: CHOLECALCIFEROL 1,000 UNIT TABLET PO SCH (09:02)
[2020-12-11] MEDS: FUROSEMIDE 80 MG TABLET PO SCH (09:02)
[2020-12-11] MEDS: ASPIRIN CHEW 81 MG TABLET PO SCH (09:02)
[2020-12-11] MEDS: ACETAMINOPHEN 500 MG TABLET PO SCH ×4 (09:02→20:49)
[2020-12-11] MEDS: CYANOCOBALAMIN 500 MCG TABLET PO SCH (09:02)
[2020-12-11] MEDS: MULTIVITAMIN (CENTRUM) TABLET PO SCH (09:02)
[2020-12-11] MEDS: POTASSIUM CHLORIDE 20 MEQ TABLET PO SCH (09:02)
[2020-12-11] MEDS: carvediloL 3.125 MG TABLET PO SCH ×2 (09:02→20:49)
[2020-12-11] MEDS: MAGNESIUM OXIDE 400 MG TABLET PO SCH ×2 (09:02→20:49)
[2020-12-11] MEDS: DICLOFENAC 1% GEL 100 GM TUBE TOP SCH ×3 (09:03→20:51)
[2020-12-11] MEDS: FUROSEMIDE 40 MG TABLET PO SCH (15:20)
[2020-12-11] MEDS: ATORVASTATIN 80 MG TABLET PO SCH (20:49)
[2020-12-11] MEDS: INSULIN GLARGINE 100 UNIT/ML SUBCUT SCH (20:50)
[2020-12-12] MEDS: MEROPENEM 500 MG in SODIUM CHLORIDE 0.9% 100 ML IV SCH ×2 (01:10→08:32)
[2020-12-12 05:53] LABS: Basophils % 0.3 % (0.0-0.8); Eosinophils # 0.5 10*3/uL (0.0-0.87); Eosinophils % 5.1 % (0.00-10.9); Hematocrit 31.4 VOL% (35.7-47.0); Hemoglobin 10.2 GM/DL (12.0-16.0); Immature Granulocytes % 1.1 %; Lymphocytes # 2.9 10*3/uL (1.4-4.0); Mean Corpuscular HGB Conc 32.5 GM/DL (32-36); Mean Corpuscular Volume 79.1 FL (87-102); Mean Platelet Volume 10.4 FL (9.6-12.0); Monocytes % 8.8 % (1.7-12.7); Neutrophils % 52.7 % (38.7-73.9); Platelet Count 327 T/CUMM (130-400); Red Blood Count 3.97 MC/CUMM (3.8-5.5); Red Cell Distribution Width 16.7 % (9.3-17.3)
[2020-12-12 06:09] LABS: Calcium 9.5 MG/DL (8.5-10.1); Osmolality,Calculated 281.1 MOS/KG (273-304); Potassium 4.5 MMOL/L (3.5-5.1)
[2020-12-12] MEDS: INSULIN LISPRO 100 UNIT/ML SUBCUT SCH ×4 (07:12→20:34)
[2020-12-12] MEDS: ACETAMINOPHEN 500 MG TABLET PO SCH ×4 (08:31→20:32)
[2020-12-12] MEDS: ENOXAPARIN 40 MG/0.4 ML SYRINGE SUBCUT SCH (08:31)
[2020-12-12] MEDS: METHENAMINE HIPPURATE 1 GM TABLET PO SCH ×2 (08:31→20:32)
[2020-12-12] MEDS: MAGNESIUM OXIDE 400 MG TABLET PO SCH ×2 (08:31→20:32)
[2020-12-12] MEDS: POTASSIUM CHLORIDE 20 MEQ TABLET PO SCH (08:31)
[2020-12-12] MEDS: LOSARTAN 50 MG TABLET PO SCH (08:32)
[2020-12-12] MEDS: CYANOCOBALAMIN 500 MCG TABLET PO SCH (08:32)
[2020-12-12] MEDS: ASPIRIN CHEW 81 MG TABLET PO SCH (08:32)
[2020-12-12] MEDS: DICLOFENAC 1% GEL 100 GM TUBE TOP SCH ×3 (08:32→20:32)
[2020-12-12] MEDS: ASCORBIC ACID 500 MG TABLET PO SCH ×2 (08:32→20:31)
[2020-12-12] MEDS: CHOLECALCIFEROL 1,000 UNIT TABLET PO SCH (08:32)
[2020-12-12] MEDS: MULTIVITAMIN (CENTRUM) TABLET PO SCH (08:32)
[2020-12-12] MEDS: FUROSEMIDE 80 MG TABLET PO SCH (08:32)
[2020-12-12] MEDS: carvediloL 3.125 MG TABLET PO SCH ×2 (08:32→20:32)
[2020-12-12] MEDS: FUROSEMIDE 40 MG TABLET PO SCH (16:17)
[2020-12-12] MEDS: ATORVASTATIN 80 MG TABLET PO SCH (20:32)
[2020-12-12] MEDS: INSULIN GLARGINE 100 UNIT/ML SUBCUT SCH (20:33)
[2020-12-13] MEDS: INSULIN LISPRO 100 UNIT/ML SUBCUT SCH ×4 (07:13→21:11)
[2020-12-13 08:04] LABS: Calcium 9.6 MG/DL (8.5-10.1); Potassium 3.7 MMOL/L (3.5-5.1)
[2020-12-13] MEDS: CYANOCOBALAMIN 500 MCG TABLET PO SCH (08:04)
[2020-12-13] MEDS: ENOXAPARIN 40 MG/0.4 ML SYRINGE SUBCUT SCH (08:04)
[2020-12-13] MEDS: POTASSIUM CHLORIDE 20 MEQ TABLET PO SCH (08:04)
[2020-12-13] MEDS: FUROSEMIDE 80 MG TABLET PO SCH (08:04)
[2020-12-13] MEDS: ACETAMINOPHEN 500 MG TABLET PO SCH ×4 (08:05→21:10)
[2020-12-13] MEDS: MULTIVITAMIN (CENTRUM) TABLET PO SCH (08:05)
[2020-12-13] MEDS: LOSARTAN 50 MG TABLET PO SCH (08:05)
[2020-12-13] MEDS: ASCORBIC ACID 500 MG TABLET PO SCH ×2 (08:05→21:12)
[2020-12-13] MEDS: METHENAMINE HIPPURATE 1 GM TABLET PO SCH ×2 (08:05→21:10)
[2020-12-13] MEDS: DICLOFENAC 1% GEL 100 GM TUBE TOP SCH ×3 (08:05→21:17)
[2020-12-13] MEDS: carvediloL 3.125 MG TABLET PO SCH ×2 (08:05→21:10)
[2020-12-13] MEDS: ASPIRIN CHEW 81 MG TABLET PO SCH (08:05)
[2020-12-13] MEDS: MAGNESIUM OXIDE 400 MG TABLET PO SCH ×2 (08:05→21:10)
[2020-12-13] MEDS: CHOLECALCIFEROL 1,000 UNIT TABLET PO SCH (08:05)
[2020-12-13] MEDS: FUROSEMIDE 40 MG TABLET PO SCH (16:44)
[2020-12-13] MEDS ORDERED: INSULIN GLARGINE 100 UNIT/ML SUBCUT SCH (21:00)
[2020-12-13] MEDS: ATORVASTATIN 80 MG TABLET PO SCH (21:10)
[2020-12-14 06:14] LABS: Calcium 9.3 MG/DL (8.5-10.1); Osmolality,Calculated 280.3 MOS/KG (273-304); Potassium 3.5 MMOL/L (3.5-5.1)
[2020-12-14 07:42] VITALS: BP 166/54
[2020-12-14] MEDS: CHOLECALCIFEROL 1,000 UNIT TABLET PO SCH (09:01)
[2020-12-14] MEDS: MULTIVITAMIN (CENTRUM) TABLET PO SCH (09:01)
[2020-12-14] MEDS: ENOXAPARIN 40 MG/0.4 ML SYRINGE SUBCUT SCH (09:01)
[2020-12-14] MEDS: METHENAMINE HIPPURATE 1 GM TABLET PO SCH (09:01)
[2020-12-14] MEDS: MAGNESIUM OXIDE 400 MG TABLET PO SCH (09:01)
[2020-12-14] MEDS: POTASSIUM CHLORIDE 20 MEQ TABLET PO SCH (09:03)
[2020-12-14] MEDS: ASCORBIC ACID 500 MG TABLET PO SCH (09:03)
[2020-12-14] MEDS: CYANOCOBALAMIN 500 MCG TABLET PO SCH (09:03)
[2020-12-14] MEDS: LOSARTAN 50 MG TABLET PO SCH (09:04)
[2020-12-14] MEDS: FUROSEMIDE 80 MG TABLET PO SCH (09:04)
[2020-12-14] MEDS: ACETAMINOPHEN 500 MG TABLET PO SCH (09:04)
[2020-12-14] MEDS: carvediloL 3.125 MG TABLET PO SCH (09:04)
[2020-12-14] MEDS: ASPIRIN CHEW 81 MG TABLET PO SCH (09:04)
[2020-12-14] MEDS: DICLOFENAC 1% GEL 100 GM TUBE TOP SCH (09:04)
[2020-12-14] MEDS: INSULIN LISPRO 100 UNIT/ML SUBCUT SCH (10:06)
== END 2020-12-14 12:44 | disposition swing bed (61) | DRG 871 ==
LOC: EDBD → EDUNIT# → N.ED 19:50 → SUATTDRO 22:49 → N.EDINP 22:49 → N.5E 12-04 03:15
PROVIDERS: ADMIT Hospitalist; ATTEND Internal Medicine

== ENCOUNTER 2022-01-02 20:34 | Inpatient (IN) ==
[2022-01-02] MEDS ORDERED: SODIUM CHLORIDE 0.9% 1,000 ML IV STA ×2 (20:46→22:57)
[2022-01-02] MEDS ORDERED: INSULIN REGULAR 100 UNIT/ML IV STA ×2 (20:48→22:56)
[2022-01-02 21:00] LABS: Arterial Base Excess iSTAT -16 MMOL/L (-2.5-2.5); Arterial Bicarbonate iSTAT 9.8 MMOL/L (20-26); Arterial O2 Saturation iSTAT 97 % (95-100); Arterial PCO2 iSTAT 24 MM HG (35-48); Arterial PO2 iSTAT 106 MM HG (80-95); Arterial Total CO2 iSTAT 10 MMO/L (23-27); Arterial pH iSTAT 7.226 (7.35-7.45)
[2022-01-02 21:26] LABS: Basophils % 0.2 % (0.0-0.8); Hematocrit 42.1 VOL% (35.7-47.0); Hemoglobin 12.9 GM/DL (12.0-16.0); Immature Granulocytes % 0.9 %; Immature Granulocytes Absolute 0.18 #; Lymphocytes # 0.9 10*3/uL (1.4-4.0); Lymphocytes % 4.6 % (21.3-54.2); Mean Corpuscular HGB Conc 30.6 GM/DL (32-36); Mean Corpuscular Volume 84.5 FL (87-102); Mean Platelet Volume 11.5 FL (9.6-12.0); Monocytes # 1.2 10*3/uL (0.11-0.8); Monocytes % 5.9 % (1.7-12.7); Neutrophils % 88.4 % (38.7-73.9); Platelet Count 410 T/CUMM (130-400); Red Blood Count 4.98 MC/CUMM (3.8-5.5); Red Cell Distribution Width 15.9 % (9.3-17.3); White Blood Count 19.5 T/CUMM (4-12)
[2022-01-02 21:32] LABS: Lymphocytes 4 % (20-55); Platelet Estimate Adequate; Total Cells Counted 100
[2022-01-02 21:35] LABS: Bacteria,Urine Occasional /HPF (Few); Mucus,Urine Occasional /LPF (Occasional); RBC,Urine <1 /HPF (0-4); Squamous Epithelial Cell,Urine Occasional /HPF (0-10)
[2022-01-02 21:40] LABS: Barbiturates Screen,Urine Negative (Negative); Benzodiazepines Screen,Urine Negative (Negative); Cannabinoid Screen,Urine Negative (Negative); Opiate Screen,Urine Negative (Negative); Phencyclidine Screen,Urine Negative (Negative)
[2022-01-02 21:49] LABS: Urine Appearance Clear (Clear); Urine Color Yellow (Yellow)
[2022-01-02 21:50] LABS: Bilirubin,Urine Small mg/dL (Negative); Blood, Urine Trace mg/dL (Negative); Glucose,Urine (UA) 500 mg/dL (Negative); Ketones,Urine >160 mg/dL (Negative); Nitrite,Urine Negative (Negative); Protein,Urine Trace mg/dL (Negative); Urine Urobilinogen 0.2 eU/dL (<2.0); Urine pH 5.5 (4.5-8.0)
[2022-01-02 22:08] LABS: PT Patient Result 10.6 SECS (10.5-12.0); Partial Thromboplastin Time 24.8 SECS (23.8-32.1)
[2022-01-02 22:23] LABS: Albumin 3.3 G/DL (3.4-5.0); Bilirubin,Total 0.5 MG/DL (0.20-1.00); Calcium 9.9 MG/DL (8.5-10.1); Osmolality,Calculated 310.5 MOS/KG (273-304); Potassium 4.2 MMOL/L (3.5-5.1); Total Protein 8.2 G/DL (6.4-8.2)
[2022-01-02] MEDS ORDERED: MAGNESIUM SULF RIDER 4 GM/100 ML PREMIX IV PRN (23:39)
[2022-01-02] MEDS ORDERED: SODIUM PHOSPHATE IV PRN (23:39)
[2022-01-02] MEDS ORDERED: SODIUM BICARB INJ 100 MEQ in STERILE WATER INJ 400 ML IV PRN (23:39)
[2022-01-02] MEDS ORDERED: DEXTROSE 10% 250 ML BAG IV PRN ×2 (23:39)
[2022-01-02] MEDS ORDERED: MAGNESIUM SULF RIDER 2 GM/50 ML PREMIX IV PRN (23:39)
[2022-01-02] MEDS ORDERED: SODIUM CHLORIDE 0.9% IV PRN (23:39)
[2022-01-02] MEDS ORDERED: INSULIN REGULAR DRIP 100 ML IV SCH (23:45)
[2022-01-03] MEDS: MORPHINE 2 MG/1 ML SYRINGE IV PRN (00:29)
[2022-01-03] MEDS: SODIUM CHLORIDE 0.9% 1,000 ML IV SCH ×2 (00:50→03:38)
[2022-01-03 02:17] LABS: Calcium 9.7 MG/DL (8.5-10.1); Osmolality,Calculated 308.5 MOS/KG (273-304); Potassium 4.6 MMOL/L (3.5-5.1)
[2022-01-03 04:34] LABS: Basophils % 0.2 % (0.0-0.8); Hematocrit 36.1 VOL% (35.7-47.0); Immature Granulocytes % 0.6 %; Immature Granulocytes Absolute 0.12 #; Lymphocytes # 1.5 10*3/uL (1.4-4.0); Mean Corpuscular HGB Conc 30.5 GM/DL (32-36); Mean Corpuscular Volume 84.7 FL (87-102); Mean Platelet Volume 10.5 FL (9.6-12.0); Monocytes # 1.8 10*3/uL (0.11-0.8); Monocytes % 9.6 % (1.7-12.7); Neutrophils % 81.6 % (38.7-73.9); Platelet Count 317 T/CUMM (130-400); Red Blood Count 4.26 MC/CUMM (3.8-5.5); Red Cell Distribution Width 15.5 % (9.3-17.3); White Blood Count 18.7 T/CUMM (4-12)
[2022-01-03 04:52] LABS: Calcium 9.6 MG/DL (8.5-10.1); Osmolality,Calculated 304.1 MOS/KG (273-304); Potassium 3.6 MMOL/L (3.5-5.1)
[2022-01-03 04:55] LABS: Phosphorous 2.7 MG/DL (2.5-4.9)
[2022-01-03] MEDS ORDERED: SODIUM CHLORIDE 0.9% 1,000 ML IV SCH (05:00)
[2022-01-03] MEDS: POTASSIUM CHLORIDE RIDER 10 MEQ/100 ML PREMIX IV PRN (06:10)
[2022-01-03] MEDS: SODIUM CHLOR 0.45% KCL 20 MEQ 20 MEQ/1,000 ML BAG IV SCH ×3 (09:00→17:57)
[2022-01-03 09:13] LABS: Calcium 8.7 MG/DL (8.5-10.1); Osmolality,Calculated 307.6 MOS/KG (273-304); Potassium 3.6 MMOL/L (3.5-5.1)
[2022-01-03] MEDS: ENOXAPARIN 40 MG/0.4 ML SYRINGE SUBCUT SCH (10:00)
[2022-01-03 12:24] LABS: Calcium 8.8 MG/DL (8.5-10.1); Osmolality,Calculated 303.3 MOS/KG (273-304); Potassium 3.5 MMOL/L (3.5-5.1)
[2022-01-03] MEDS: DEXT 5% NACL 0.45% KCL 20 MEQ 20 MEQ/1,000 ML BAG IV SCH ×2 (12:45→16:25)
[2022-01-03 16:04] LABS: Calcium 8.9 MG/DL (8.5-10.1); Osmolality,Calculated 297.1 MOS/KG (273-304); Potassium 3.5 MMOL/L (3.5-5.1)
[2022-01-03] MEDS: INSULIN LISPRO 100 UNIT/ML SUBCUT SCH ×2 (16:30→20:12)
[2022-01-03] MEDS ORDERED: GLUCAGON 1 MG VIAL IM PRN (16:32)
[2022-01-03] MEDS ORDERED: DEXTROSE 10% 250 ML BAG IV PRN (16:41)
[2022-01-03] MEDS ORDERED: SODIUM CHLORIDE 0.45% 1,000 ML IV SCH (17:00)
[2022-01-03 20:07] LABS: Calcium 8.9 MG/DL (8.5-10.1); Osmolality,Calculated 290.7 MOS/KG (273-304); Potassium 4.5 MMOL/L (3.5-5.1)
[2022-01-03] MEDS ORDERED: INSULIN GLARGINE 100 UNIT/ML SUBCUT SCH (21:00)
[2022-01-04] MEDS: INSULIN LISPRO 100 UNIT/ML SUBCUT SCH ×6 (01:00→22:55)
[2022-01-04 04:48] LABS: Basophils % 0.2 % (0.0-0.8); Eosinophils # 0.1 10*3/uL (0.0-0.87); Eosinophils % 0.4 % (0.00-10.9); Hematocrit 33.8 VOL% (35.7-47.0); Hemoglobin 10.5 GM/DL (12.0-16.0); Immature Granulocytes % 0.3 %; Immature Granulocytes Absolute 0.04 #; Lymphocytes # 2.6 10*3/uL (1.4-4.0); Mean Corpuscular HGB Conc 31.1 GM/DL (32-36); Mean Corpuscular Volume 82.8 FL (87-102); Mean Platelet Volume 10.3 FL (9.6-12.0); Monocytes # 1.2 10*3/uL (0.11-0.8); Monocytes % 9.7 % (1.7-12.7); Neutrophils % 68.4 % (38.7-73.9); Platelet Count 258 T/CUMM (130-400); Red Blood Count 4.08 MC/CUMM (3.8-5.5); Red Cell Distribution Width 15.7 % (9.3-17.3); White Blood Count 12.2 T/CUMM (4-12)
[2022-01-04 05:10] LABS: Calcium 8.8 MG/DL (8.5-10.1); Potassium 3.6 MMOL/L (3.5-5.1)
[2022-01-04] MEDS: POTASSIUM CHLORIDE RIDER 10 MEQ/100 ML PREMIX IV PRN ×2 (06:20→09:41)
[2022-01-04] MEDS: ENOXAPARIN 40 MG/0.4 ML SYRINGE SUBCUT SCH (09:41)
[2022-01-04] MEDS ORDERED: INSULIN GLARGINE 100 UNIT/ML SUBCUT SCH (21:00)
[2022-01-04] MEDS: MORPHINE 2 MG/1 ML SYRINGE IV PRN (22:56)
[2022-01-05] MEDS: INSULIN LISPRO 100 UNIT/ML SUBCUT SCH ×6 (00:28→20:52)
[2022-01-05] MEDS: ENOXAPARIN 40 MG/0.4 ML SYRINGE SUBCUT SCH (08:58)
[2022-01-05] MEDS: MORPHINE 2 MG/1 ML SYRINGE IV PRN ×2 (08:59→16:41)
[2022-01-05 09:14] LABS: Basophils % 0.2 % (0.0-0.8); Eosinophils # 0.2 10*3/uL (0.0-0.87); Eosinophils % 1.5 % (0.00-10.9); Hematocrit 32.7 VOL% (35.7-47.0); Hemoglobin 10.2 GM/DL (12.0-16.0); Immature Granulocytes % 0.5 %; Immature Granulocytes Absolute 0.05 #; Lymphocytes # 2.4 10*3/uL (1.4-4.0); Mean Corpuscular HGB Conc 31.2 GM/DL (32-36); Mean Corpuscular Volume 82.2 FL (87-102); Mean Platelet Volume 10.1 FL (9.6-12.0); Monocytes # 1.2 10*3/uL (0.11-0.8); Monocytes % 10.7 % (1.7-12.7); Neutrophils % 65.1 % (38.7-73.9); Platelet Count 254 T/CUMM (130-400); Red Blood Count 3.98 MC/CUMM (3.8-5.5); Red Cell Distribution Width 15.9 % (9.3-17.3); White Blood Count 10.8 T/CUMM (4-12)
[2022-01-05 09:40] LABS: Calcium 8.8 MG/DL (8.5-10.1); Osmolality,Calculated 284.3 MOS/KG (273-304); Potassium 3.5 MMOL/L (3.5-5.1)
[2022-01-05] MEDS: ASCORBIC ACID 500 MG TABLET PO SCH (20:51)
[2022-01-05] MEDS: carvediloL 3.125 MG TABLET PO SCH (20:52)
[2022-01-05] MEDS ORDERED: INSULIN GLARGINE 100 UNIT/ML SUBCUT SCH (21:00)
[2022-01-06] MEDS: INSULIN LISPRO 100 UNIT/ML SUBCUT SCH ×6 (00:50→20:50)
[2022-01-06] MEDS: MORPHINE 2 MG/1 ML SYRINGE IV PRN ×3 (06:29→16:14)
[2022-01-06 07:10] LABS: Basophils % 0.2 % (0.0-0.8); Eosinophils # 0.3 10*3/uL (0.0-0.87); Hematocrit 30.9 VOL% (35.7-47.0); Hemoglobin 9.8 GM/DL (12.0-16.0); Immature Granulocytes % 0.7 %; Immature Granulocytes Absolute 0.07 #; Lymphocytes # 2.6 10*3/uL (1.4-4.0); Lymphocytes % 24.8 % (21.3-54.2); Mean Corpuscular HGB Conc 31.7 GM/DL (32-36); Mean Corpuscular Volume 81.7 FL (87-102); Mean Platelet Volume 10.4 FL (9.6-12.0); Monocytes # 1.2 10*3/uL (0.11-0.8); Monocytes % 11.4 % (1.7-12.7); Neutrophils % 59.9 % (38.7-73.9); Platelet Count 245 T/CUMM (130-400); Red Blood Count 3.78 MC/CUMM (3.8-5.5); Red Cell Distribution Width 15.8 % (9.3-17.3); White Blood Count 10.6 T/CUMM (4-12)
[2022-01-06 07:25] LABS: Calcium 9.4 MG/DL (8.5-10.1); Osmolality,Calculated 282.3 MOS/KG (273-304); Potassium 3.7 MMOL/L (3.5-5.1)
[2022-01-06] MEDS: carvediloL 3.125 MG TABLET PO SCH ×2 (08:46→20:51)
[2022-01-06] MEDS: LOSARTAN 50 MG TABLET PO SCH (08:46)
[2022-01-06] MEDS: ASCORBIC ACID 500 MG TABLET PO SCH ×2 (08:46→20:51)
[2022-01-06] MEDS: ENOXAPARIN 40 MG/0.4 ML SYRINGE SUBCUT SCH (08:46)
[2022-01-06] MEDS: ASPIRIN CHEW 81 MG TABLET PO SCH (08:46)
[2022-01-06] MEDS: PANTOPRAZOLE 40 MG TABLET PO SCH (08:46)
[2022-01-06] MEDS: INSULIN GLARGINE 100 UNIT/ML SUBCUT SCH (20:51)
[2022-01-07] MEDS: INSULIN LISPRO 100 UNIT/ML SUBCUT SCH ×7 (00:19→23:50)
[2022-01-07 06:04] LABS: Basophils % 0.3 % (0.0-0.8); Eosinophils # 0.4 10*3/uL (0.0-0.87); Hematocrit 30.6 VOL% (35.7-47.0); Hemoglobin 9.2 GM/DL (12.0-16.0); Immature Granulocytes % 0.9 %; Immature Granulocytes Absolute 0.11 #; Lymphocytes # 3.3 10*3/uL (1.4-4.0); Mean Corpuscular HGB Conc 30.1 GM/DL (32-36); Mean Corpuscular Volume 83.8 FL (87-102); Mean Platelet Volume 10.4 FL (9.6-12.0); Monocytes # 1.5 10*3/uL (0.11-0.8); Neutrophils % 54.8 % (38.7-73.9); Platelet Count 260 T/CUMM (130-400); Red Blood Count 3.65 MC/CUMM (3.8-5.5); White Blood Count 11.8 T/CUMM (4-12)
[2022-01-07 06:23] LABS: Calcium 9.2 MG/DL (8.5-10.1); Osmolality,Calculated 282.3 MOS/KG (273-304); Potassium 3.6 MMOL/L (3.5-5.1)
[2022-01-07] MEDS: LOSARTAN 50 MG TABLET PO SCH (09:38)
[2022-01-07] MEDS: ASPIRIN CHEW 81 MG TABLET PO SCH (09:38)
[2022-01-07] MEDS: ENOXAPARIN 40 MG/0.4 ML SYRINGE SUBCUT SCH (09:38)
[2022-01-07] MEDS: PANTOPRAZOLE 40 MG TABLET PO SCH (09:38)
[2022-01-07] MEDS: ASCORBIC ACID 500 MG TABLET PO SCH ×2 (09:39→21:07)
[2022-01-07] MEDS: carvediloL 3.125 MG TABLET PO SCH ×2 (09:40→21:07)
[2022-01-07] MEDS: INSULIN GLARGINE 100 UNIT/ML SUBCUT SCH (21:06)
[2022-01-07] MEDS: MORPHINE 2 MG/1 ML SYRINGE IV PRN (23:44)
[2022-01-08] MEDS: INSULIN LISPRO 100 UNIT/ML SUBCUT SCH ×5 (03:57→21:24)
[2022-01-08] MEDS: PANTOPRAZOLE 40 MG TABLET PO SCH (08:55)
[2022-01-08] MEDS: carvediloL 3.125 MG TABLET PO SCH ×2 (08:55→21:24)
[2022-01-08] MEDS: ASPIRIN CHEW 81 MG TABLET PO SCH (08:55)
[2022-01-08] MEDS: ASCORBIC ACID 500 MG TABLET PO SCH ×2 (08:55→21:24)
[2022-01-08] MEDS: ENOXAPARIN 40 MG/0.4 ML SYRINGE SUBCUT SCH (08:55)
[2022-01-08] MEDS: LOSARTAN 50 MG TABLET PO SCH (08:55)
[2022-01-08] MEDS ORDERED: BISACODYL 10 MG SUPP RECTAL ONE (15:00)
[2022-01-08] MEDS: MORPHINE 2 MG/1 ML SYRINGE IV PRN (16:18)
[2022-01-08] MEDS: INSULIN GLARGINE 100 UNIT/ML SUBCUT SCH (21:24)
[2022-01-09] MEDS: INSULIN LISPRO 100 UNIT/ML SUBCUT SCH ×7 (00:23→23:58)
[2022-01-09] MEDS: ENOXAPARIN 40 MG/0.4 ML SYRINGE SUBCUT SCH (09:57)
[2022-01-09] MEDS: LOSARTAN 50 MG TABLET PO SCH (09:57)
[2022-01-09] MEDS: ASCORBIC ACID 500 MG TABLET PO SCH ×2 (09:57→21:22)
[2022-01-09] MEDS: ASPIRIN CHEW 81 MG TABLET PO SCH (09:57)
[2022-01-09] MEDS: metFORMIN 500 MG TABLET PO SCH (09:57)
[2022-01-09] MEDS: PANTOPRAZOLE 40 MG TABLET PO SCH (09:57)
[2022-01-09] MEDS: carvediloL 3.125 MG TABLET PO SCH ×2 (09:57→21:22)
[2022-01-09 10:05] LABS: Alanine Aminotransferase 18 U/L (13-56); Albumin 2.4 G/DL (3.4-5.0); Alkaline Phosphatase 85 U/L (45-117); Aspartate Amino Transferase 14 U/L (0-37); Bilirubin,Total < 0.39 MG/DL (0.20-1.00); Blood Urea Nitrogen 14 MG/DL (7-18); Calcium 9.7 MG/DL (8.5-10.1); Carbon Dioxide 24 MMOL/L (21-32); Chloride 110 MMOL/L (98-107); Estimated Glom Filtration Rate 109 ML/MIN; Glucose 167 MG/DL (74-106); Osmolality,Calculated 283.4 MOS/KG (273-304); Potassium 4.1 MMOL/L (3.5-5.1); Sodium 140 MMOL/L (136-145); Total Protein 6.3 G/DL (6.4-8.2)
[2022-01-09 10:08] LABS: Basophils % 0.3 % (0.0-0.8); Eosinophils # 0.3 10*3/uL (0.0-0.87); Eosinophils % 3.1 % (0.00-10.9); Hematocrit 31.3 VOL% (35.7-47.0); Hemoglobin 9.7 GM/DL (12.0-16.0); Immature Granulocytes % 1.3 %; Immature Granulocytes Absolute 0.12 #; Lymphocytes % 22.7 % (21.3-54.2); Mean Corpuscular Volume 82.2 FL (87-102); Mean Platelet Volume 9.4 FL (9.6-12.0); Monocytes # 1.1 10*3/uL (0.11-0.8); Monocytes % 12.5 % (1.7-12.7); Neutrophils % 60.1 % (38.7-73.9); Platelet Count 297 T/CUMM (130-400); Red Blood Count 3.81 MC/CUMM (3.8-5.5); White Blood Count 8.9 T/CUMM (4-12)
[2022-01-09] MEDS ORDERED: TUBERCULIN SKIN TEST 0.1 ML SYRINGE INTRADERM ONE (13:00)
[2022-01-09] MEDS ORDERED: MAGNESIUM HYDROXIDE SUSP 30 ML UDCUP PO ONE (15:00)
[2022-01-09] MEDS ORDERED: FUROSEMIDE 20 MG/2 ML VIAL IV ONE (17:00)
[2022-01-09] MEDS ORDERED: diphenhydrAMINE CAP 25 MG CAPSULE PO PRN (21:01)
[2022-01-09] MEDS: INSULIN GLARGINE 100 UNIT/ML SUBCUT SCH (21:22)
[2022-01-10 06:18] LABS: Basophils % 0.3 % (0.0-0.8); Eosinophils # 0.3 10*3/uL (0.0-0.87); Eosinophils % 3.6 % (0.00-10.9); Hematocrit 29.2 VOL% (35.7-47.0); Hemoglobin 9.1 GM/DL (12.0-16.0); Immature Granulocytes % 1.9 %; Immature Granulocytes Absolute 0.17 #; Lymphocytes # 2.2 10*3/uL (1.4-4.0); Lymphocytes % 25.4 % (21.3-54.2); Mean Corpuscular HGB Conc 31.2 GM/DL (32-36); Mean Platelet Volume 10.1 FL (9.6-12.0); Monocytes # 1.4 10*3/uL (0.11-0.8); Neutrophils % 52.8 % (38.7-73.9); Platelet Count 337 T/CUMM (130-400); Red Blood Count 3.56 MC/CUMM (3.8-5.5); Red Cell Distribution Width 16.1 % (9.3-17.3); White Blood Count 8.7 T/CUMM (4-12)
[2022-01-10] MEDS: INSULIN LISPRO 100 UNIT/ML SUBCUT SCH ×5 (06:26→20:31)
[2022-01-10 06:33] LABS: Alanine Aminotransferase 15 U/L (13-56); Alkaline Phosphatase 67 U/L (45-117); Aspartate Amino Transferase 11 U/L (0-37); Bilirubin,Total < 0.39 MG/DL (0.20-1.00); Blood Urea Nitrogen 10 MG/DL (7-18); Calcium 9.6 MG/DL (8.5-10.1); Carbon Dioxide 24 MMOL/L (21-32); Chloride 112 MMOL/L (98-107); Estimated Glom Filtration Rate 129 ML/MIN; Glucose 81 MG/DL (74-106); Osmolality,Calculated 278.3 MOS/KG (273-304); Potassium 4.1 MMOL/L (3.5-5.1); Sodium 141 MMOL/L (136-145); Total Protein 5.9 G/DL (6.4-8.2)
[2022-01-10 06:43] LABS: Eosinophils 4 % (0-10); Lymphocytes 27 % (20-55); Platelet Estimate Adequate; Total Cells Counted 100
[2022-01-10] MEDS: ENOXAPARIN 40 MG/0.4 ML SYRINGE SUBCUT SCH (10:13)
[2022-01-10] MEDS: ASCORBIC ACID 500 MG TABLET PO SCH ×2 (10:13→20:31)
[2022-01-10] MEDS: LOSARTAN 50 MG TABLET PO SCH (10:14)
[2022-01-10] MEDS: ASPIRIN CHEW 81 MG TABLET PO SCH (10:14)
[2022-01-10] MEDS: PANTOPRAZOLE 40 MG TABLET PO SCH (10:14)
[2022-01-10] MEDS: carvediloL 3.125 MG TABLET PO SCH ×2 (10:14→20:31)
[2022-01-10] MEDS: metFORMIN 500 MG TABLET PO SCH (10:24)
[2022-01-10] MEDS ORDERED: INSULIN GLARGINE 100 UNIT/ML SUBCUT SCH (21:00)
[2022-01-11] MEDS: INSULIN LISPRO 100 UNIT/ML SUBCUT SCH ×4 (00:53→12:18)
[2022-01-11 06:11] LABS: Alanine Aminotransferase 16 U/L (13-56); Albumin 2.1 G/DL (3.4-5.0); Alkaline Phosphatase 73 U/L (45-117); Aspartate Amino Transferase 14 U/L (0-37); Bilirubin,Total < 0.39 MG/DL (0.20-1.00); Blood Urea Nitrogen 11 MG/DL (7-18); Calcium 9.7 MG/DL (8.5-10.1); Carbon Dioxide 24 MMOL/L (21-32); Chloride 109 MMOL/L (98-107); Estimated Glom Filtration Rate 129 ML/MIN; Glucose 105 MG/DL (74-106); Osmolality,Calculated 277.4 MOS/KG (273-304); Potassium 4.2 MMOL/L (3.5-5.1); Sodium 140 MMOL/L (136-145); Total Protein 6.1 G/DL (6.4-8.2)
[2022-01-11] MEDS: ASPIRIN CHEW 81 MG TABLET PO SCH (10:16)
[2022-01-11] MEDS: ASCORBIC ACID 500 MG TABLET PO SCH (10:17)
[2022-01-11] MEDS: PANTOPRAZOLE 40 MG TABLET PO SCH (10:17)
[2022-01-11] MEDS: LOSARTAN 50 MG TABLET PO SCH (10:17)
[2022-01-11] MEDS: carvediloL 3.125 MG TABLET PO SCH (10:17)
[2022-01-11] MEDS: ENOXAPARIN 40 MG/0.4 ML SYRINGE SUBCUT SCH (10:18)
[2022-01-11] MEDS: metFORMIN 500 MG TABLET PO SCH (10:24)
[2022-01-11 11:04] LABS: Basophils # 0.1 10*3/uL (0.0-0.2); Basophils % 0.6 % (0.0-0.8); Eosinophils # 0.3 10*3/uL (0.0-0.87); Eosinophils % 3.4 % (0.00-10.9); Hemoglobin 10.1 GM/DL (12.0-16.0); Immature Granulocytes % 1.4 %; Immature Granulocytes Absolute 0.13 #; Lymphocytes # 2.3 10*3/uL (1.4-4.0); Lymphocytes % 25.7 % (21.3-54.2); Mean Corpuscular HGB Conc 31.6 GM/DL (32-36); Mean Corpuscular Volume 82.7 FL (87-102); Mean Platelet Volume 9.2 FL (9.6-12.0); Monocytes # 1.3 10*3/uL (0.11-0.8); Monocytes % 13.9 % (1.7-12.7); Platelet Count 366 T/CUMM (130-400); Red Blood Count 3.87 MC/CUMM (3.8-5.5); Red Cell Distribution Width 16.1 % (9.3-17.3); White Blood Count 9.1 T/CUMM (4-12)
[2022-01-11 16:27] VITALS: BP 146/63
== END 2022-01-11 16:35 | disposition swing bed (61) | DRG 638 ==
LOC: EDBD → EDUNIT# → N.ED 20:34 → N.CC 23:39 → SUATTDRO 23:39 → N.CC 01-03 00:40 → N.5E 01-04 18:07
PROVIDERS: ADMIT Internal Medicine; ATTEND Internal Medicine

== ENCOUNTER 2022-04-20 20:17 | Inpatient (IN) ==
[2022-04-20] MEDS ORDERED: ONDANSETRON 4 MG/2 ML VIAL IV STA (20:42)
[2022-04-20] MEDS ORDERED: SODIUM CHLORIDE 0.9% 1,000 ML IV STA (20:42)
[2022-04-20 20:53] LABS: Basophils % 0.3 % (0.0-0.8); Eosinophils # 0.2 10*3/uL (0.0-0.87); Eosinophils % 1.4 % (0.00-10.9); Hemoglobin 9.5 GM/DL (12.0-16.0); Immature Granulocytes % 0.5 %; Immature Granulocytes Absolute 0.06 #; Lymphocytes # 0.8 10*3/uL (1.4-4.0); Lymphocytes % 6.4 % (21.3-54.2); Mean Corpuscular HGB Conc 30.6 GM/DL (32-36); Mean Corpuscular Volume 74.5 FL (87-102); Mean Platelet Volume 8.6 FL (9.6-12.0); Monocytes # 0.9 10*3/uL (0.11-0.8); Monocytes % 7.8 % (1.7-12.7); Neutrophils % 83.6 % (38.7-73.9); Platelet Count 461 T/CUMM (130-400); Red Blood Count 4.16 MC/CUMM (3.8-5.5); Red Cell Distribution Width 16.5 % (9.3-17.3); White Blood Count 11.7 T/CUMM (4-12)
[2022-04-20 21:13] LABS: Alanine Aminotransferase 15 U/L (13-56); Alkaline Phosphatase 76 U/L (45-117); Aspartate Amino Transferase 11 U/L (0-37); Bilirubin,Total < 0.39 MG/DL (0.20-1.00); Blood Urea Nitrogen 9 MG/DL (7-18); Carbon Dioxide 30 MMOL/L (21-32); Chloride 101 MMOL/L (98-107); Glucose 132 MG/DL (74-106); Osmolality,Calculated 275.7 MOS/KG (273-304); Potassium 3.8 MMOL/L (3.5-5.1); Sodium 138 MMOL/L (136-145); Total Protein 7.8 G/DL (6.4-8.2)
[2022-04-20 21:14] LABS: Bacteria,Urine Few /HPF (Few); RBC,Urine 15-20 /HPF (0-4); Squamous Epithelial Cell,Urine Occasional /HPF (0-10)
[2022-04-20 21:15] LABS: Glucose,Urine (UA) Negative (Negative); Ketones,Urine Trace mg/dL (Negative); Protein,Urine 30 mg/dL (Negative); Urine Appearance Clear (Clear); Urine Color Yellow (Yellow)
[2022-04-20 21:16] LABS: Bilirubin,Urine NH mg/dL (Negative); Blood, Urine Trace mg/dL (Negative); Nitrite,Urine Negative (Negative); Urine Urobilinogen 0.2 eU/dL (<2.0)
[2022-04-20] MEDS ORDERED: ACETAMINOPHEN 325 MG TABLET PO ONE (21:30)
[2022-04-20] MEDS ORDERED: SODIUM CHLORIDE 0.9% 500 ML IV STA (23:20)
[2022-04-20] MEDS ORDERED: SODIUM CHLORIDE 0.9% 2,000 ML IV STA (23:28)
[2022-04-21] MEDS ORDERED: ONDANSETRON 4 MG/2 ML VIAL IV PRN (00:16)
[2022-04-21] MEDS ORDERED: GLUCAGON 1 MG VIAL IM PRN (00:16)
[2022-04-21] MEDS ORDERED: DEXTROSE 10% 250 ML BAG IV PRN (00:34)
[2022-04-21 05:51] LABS: Basophils % 0.2 % (0.0-0.8); Eosinophils # 0.1 10*3/uL (0.0-0.87); Eosinophils % 0.7 % (0.00-10.9); Hematocrit 30.5 VOL% (35.7-47.0); Hemoglobin 9.1 GM/DL (12.0-16.0); Immature Granulocytes % 0.7 %; Immature Granulocytes Absolute 0.07 #; Lymphocytes # 1.1 10*3/uL (1.4-4.0); Lymphocytes % 11.7 % (21.3-54.2); Mean Corpuscular HGB Conc 29.8 GM/DL (32-36); Mean Corpuscular Volume 75.5 FL (87-102); Monocytes # 1.4 10*3/uL (0.11-0.8); Monocytes % 15.1 % (1.7-12.7); Neutrophils % 71.6 % (38.7-73.9); Platelet Count 411 T/CUMM (130-400); Red Blood Count 4.04 MC/CUMM (3.8-5.5); Red Cell Distribution Width 16.4 % (9.3-17.3); White Blood Count 9.4 T/CUMM (4-12)
[2022-04-21 06:30] LABS: Alanine Aminotransferase 9 U/L (13-56); Albumin 2.8 G/DL (3.4-5.0); Alkaline Phosphatase 71 U/L (45-117); Aspartate Amino Transferase 10 U/L (0-37); Bilirubin,Total < 0.39 MG/DL (0.20-1.00); Blood Urea Nitrogen 7 MG/DL (7-18); Calcium 9.8 MG/DL (8.5-10.1); Carbon Dioxide 23 MMOL/L (21-32); Chloride 106 MMOL/L (98-107); Glucose 58 MG/DL (74-106); Potassium 3.5 MMOL/L (3.5-5.1); Sodium 136 MMOL/L (136-145); Total Protein 7.2 G/DL (6.4-8.2)
[2022-04-21 06:37] LABS: Risk Ratio 1.89; Thyroid Stimulating Hormone 0.254 uIU/ml (0.358-3.74); VLDL Cholesterol 10.4 MG/DL
[2022-04-21] MEDS: INSULIN LISPRO 100 UNIT/ML SUBCUT SCH ×4 (08:14→23:14)
[2022-04-21] MEDS: ASPIRIN CHEW 81 MG TABLET PO SCH (08:33)
[2022-04-21] MEDS: LOSARTAN 50 MG TABLET PO SCH (08:34)
[2022-04-21] MEDS: POTASSIUM CHLORIDE 20 MEQ TABLET PO SCH (08:34)
[2022-04-21] MEDS: CHOLECALCIFEROL 1,000 UNIT TABLET PO SCH (08:34)
[2022-04-21] MEDS: ASCORBIC ACID 500 MG TABLET PO SCH ×2 (08:34→21:54)
[2022-04-21] MEDS: PANTOPRAZOLE 40 MG TABLET PO SCH (08:34)
[2022-04-21] MEDS: MAGNESIUM OXIDE 400 MG TABLET PO SCH ×2 (08:34→21:54)
[2022-04-21] MEDS: carvediloL 3.125 MG TABLET PO SCH ×2 (08:34→21:54)
[2022-04-21] MEDS: ACETAMINOPHEN 325 MG TABLET PO PRN ×2 (08:34→19:25)
[2022-04-21] MEDS ORDERED: ENOXAPARIN 40 MG/0.4 ML SYRINGE SUBCUT SCH (09:00)
[2022-04-21] MEDS ORDERED: traMADol 50 MG TABLET PO PRN (11:31)
[2022-04-21] MEDS: RIVAROXABAN 20 MG TABLET PO SCH (16:16)
[2022-04-21] MEDS: DEXTROSE 5% NACL 0.45% 1,000 ML IV SCH (16:16)
[2022-04-21] MEDS: ATORVASTATIN 80 MG TABLET PO SCH (21:54)
[2022-04-22] MEDS: ACETAMINOPHEN 325 MG TABLET PO PRN (05:22)
[2022-04-22] MEDS: INSULIN LISPRO 100 UNIT/ML SUBCUT SCH ×4 (08:19→22:57)
[2022-04-22] MEDS: ASCORBIC ACID 500 MG TABLET PO SCH ×2 (08:57→21:33)
[2022-04-22] MEDS: CHOLECALCIFEROL 1,000 UNIT TABLET PO SCH (08:57)
[2022-04-22] MEDS: carvediloL 3.125 MG TABLET PO SCH ×2 (08:57→21:33)
[2022-04-22] MEDS: MAGNESIUM OXIDE 400 MG TABLET PO SCH ×2 (08:57→21:33)
[2022-04-22] MEDS: LOSARTAN 50 MG TABLET PO SCH (08:57)
[2022-04-22] MEDS: POTASSIUM CHLORIDE 20 MEQ TABLET PO SCH (08:57)
[2022-04-22] MEDS: PANTOPRAZOLE 40 MG TABLET PO SCH (08:58)
[2022-04-22] MEDS: ASPIRIN CHEW 81 MG TABLET PO SCH (08:58)
[2022-04-22] MEDS ORDERED: DEXTROSE 50% 25 GM/50 ML VIAL IV PRN (12:49)
[2022-04-22] MEDS ORDERED: GLUCAGON 1 MG VIAL IM PRN (12:49)
[2022-04-22] MEDS: DEXTROSE 5% NACL 0.45% 1,000 ML IV SCH (13:19)
[2022-04-22] MEDS: RIVAROXABAN 20 MG TABLET PO SCH (16:10)
[2022-04-22 16:50] LABS: Mucus,Urine Occasional /LPF (Occasional); RBC,Urine 1 /HPF (0-4); Squamous Epithelial Cell,Urine Occasional /HPF (0-10)
[2022-04-22 16:56] LABS: Bilirubin,Urine Negative (Negative); Blood, Urine Negative (Negative); Glucose,Urine (UA) Negative (Negative); Ketones,Urine Trace mg/dL (Negative); Nitrite,Urine Negative (Negative); Protein,Urine Negative (Negative); Urine Appearance Clear (Clear); Urine Color Yellow (Yellow); Urine Specific Gravity 1.015 (1.001-1.035); Urine Urobilinogen 0.2 eU/dL (<2.0)
[2022-04-22] MEDS ORDERED: PHENOL 1.4% THROAT SPRAY 177 ML BOTTLE PO PRN (17:53)
[2022-04-22] MEDS: ATORVASTATIN 80 MG TABLET PO SCH (21:33)
[2022-04-23] MEDS: DEXTROSE 5% NACL 0.45% 1,000 ML IV SCH (06:38)
[2022-04-23] MEDS: INSULIN LISPRO 100 UNIT/ML SUBCUT SCH ×4 (08:29→20:54)
[2022-04-23] MEDS: ASPIRIN CHEW 81 MG TABLET PO SCH (08:29)
[2022-04-23] MEDS: CHOLECALCIFEROL 1,000 UNIT TABLET PO SCH (08:29)
[2022-04-23] MEDS: carvediloL 3.125 MG TABLET PO SCH ×2 (08:30→20:53)
[2022-04-23] MEDS: ASCORBIC ACID 500 MG TABLET PO SCH ×2 (08:30→20:51)
[2022-04-23] MEDS: PANTOPRAZOLE 40 MG TABLET PO SCH (08:30)
[2022-04-23] MEDS: LOSARTAN 50 MG TABLET PO SCH (08:30)
[2022-04-23] MEDS: POTASSIUM CHLORIDE 20 MEQ TABLET PO SCH (08:30)
[2022-04-23] MEDS: MAGNESIUM OXIDE 400 MG TABLET PO SCH ×2 (08:30→20:50)
[2022-04-23] MEDS: ACETAMINOPHEN 325 MG TABLET PO PRN (11:53)
[2022-04-23] MEDS ORDERED: MAGNESIUM HYDROXIDE SUSP 30 ML UDCUP PO PRN (16:04)
[2022-04-23] MEDS: RIVAROXABAN 20 MG TABLET PO SCH (16:11)
[2022-04-23] MEDS: ATORVASTATIN 80 MG TABLET PO SCH (20:51)
[2022-04-24] MEDS: DEXTROSE 5% NACL 0.45% 1,000 ML IV SCH ×2 (03:37→04:05)
[2022-04-24] MEDS: ASPIRIN CHEW 81 MG TABLET PO SCH (08:47)
[2022-04-24] MEDS: ASCORBIC ACID 500 MG TABLET PO SCH ×2 (08:47→20:28)
[2022-04-24] MEDS: CHOLECALCIFEROL 1,000 UNIT TABLET PO SCH (08:47)
[2022-04-24] MEDS: carvediloL 3.125 MG TABLET PO SCH ×2 (08:47→20:29)
[2022-04-24] MEDS: POTASSIUM CHLORIDE 20 MEQ TABLET PO SCH (08:47)
[2022-04-24] MEDS: LOSARTAN 50 MG TABLET PO SCH (08:47)
[2022-04-24] MEDS: PANTOPRAZOLE 40 MG TABLET PO SCH (08:47)
[2022-04-24] MEDS: INSULIN LISPRO 100 UNIT/ML SUBCUT SCH ×4 (08:48→20:29)
[2022-04-24] MEDS: MAGNESIUM OXIDE 400 MG TABLET PO SCH ×2 (08:49→20:29)
[2022-04-24] MEDS: RIVAROXABAN 20 MG TABLET PO SCH (18:24)
[2022-04-24] MEDS: ATORVASTATIN 80 MG TABLET PO SCH (20:28)
[2022-04-24] MEDS: CEFUROXIME 500 MG TABLET PO SCH (21:24)
[2022-04-25] MEDS: DEXTROSE 5% NACL 0.45% 1,000 ML IV SCH (02:27)
[2022-04-25] MEDS: PANTOPRAZOLE 40 MG TABLET PO SCH (08:49)
[2022-04-25] MEDS: LOSARTAN 50 MG TABLET PO SCH (08:49)
[2022-04-25] MEDS: carvediloL 3.125 MG TABLET PO SCH (08:49)
[2022-04-25] MEDS: POTASSIUM CHLORIDE 20 MEQ TABLET PO SCH (08:49)
[2022-04-25] MEDS: MAGNESIUM OXIDE 400 MG TABLET PO SCH (08:49)
[2022-04-25] MEDS: ASPIRIN CHEW 81 MG TABLET PO SCH (08:49)
[2022-04-25] MEDS: CEFUROXIME 500 MG TABLET PO SCH (08:49)
[2022-04-25] MEDS: CHOLECALCIFEROL 1,000 UNIT TABLET PO SCH (08:51)
[2022-04-25] MEDS: ASCORBIC ACID 500 MG TABLET PO SCH (08:51)
[2022-04-25] MEDS: INSULIN LISPRO 100 UNIT/ML SUBCUT SCH ×3 (08:52→16:00)
[2022-04-25] MEDS: RIVAROXABAN 20 MG TABLET PO SCH (16:00)
[2022-04-25 16:02] VITALS: BP 149/48
== END 2022-04-25 17:50 | disposition home health service (06) | DRG 690 ==
LOC: EDUNIT# → N.ED 20:17 → SUATTDRO 04-21 00:16 → N.EDINP 04-21 00:16 → N.3E 04-21 02:00
PROVIDERS: ADMIT Internal Medicine; ATTEND Internal Medicine